=== PATIENT | male | born 1945 | race Caucasian/White ===

== ENCOUNTER 2023-07-28 09:37 | Inpatient (IN) ==
--- NOTE | 2023-07-28 09:42 | Emergency Department Note ---
Impression & Plan Acute exacerbation of CHF (congestive heart failure), Non-ST elevation AL (NSTEMI), Elevated brain natriuretic peptide (BNP) level, Bilateral edema of lower extremity ED Provider Note HISTORY OF PRESENT ILLNESS: Patient is a 77-year-old male presenting with lower extremity edema and shortness of breath. Patient reports he has a history of CHF and takes 40 mg of Lasix daily. He reports that in the last few weeks he has been having progressively worsening swelling of his lower extremities that now extends into his lower abdomen. He states that he is very short of breath both at rest and with exertion. He is unable to take more than 10-15 steps at a time before having to sit down because he is so winded. He denies any chest pain. He states that his scrotum is also very swollen and painful. Denies any fevers. Denies any abdominal pain. Patient reports he took his 40 mg of lasix today. ROS: as above PHYSICAL EXAM: Constitutional: Patient appears in no acute distress. HENT: Head: Normocephalic and atraumatic. Eyes: EOMI, PERRL Mouth/Throat: Mucous membranes moist. Neck: Trachea midline. Neck supple. Cardiovascular: Paced rhythm. No murmurs, rubs or gallops. Intact distal pulses. Pulmonary/Chest: No respiratory distress. Breath sounds clear and equal bilaterally. No wheezes or rales. Abdominal: Abdomen soft, no tenderness, rebound or guarding. Musculoskeletal: No tenderness or deformity noted. +3 pitting edema of bilateral lower extremities extending past knees Skin: Warm and dry. No rash, erythema, pallor or cyanosis Psychiatric: Appropriate mood and affect for situation. Neurological: Alert and keenly responsive. CN II-XII grossly intact, moving all extremities equally and fully. MDM: - Vitals signs showed borderline tachycardia - History obtained via patient. Patient presents with lower extremity edema and shortness of breath. Patient reports he takes 40 mg of Lasix daily. He reports over the last few weeks has been having progressively worsening swelling of his lower extremities that now extends into his abdomen. States he is very short of breath. He is unable to take more than 10-15 steps at a time before having to rest because he is so winded. Denies any chest pain. States his scrotum is swollen and very painful. Denies any fevers - Chronic conditions affecting care: HTN; HLD; CHF - Differential diagnoses include, but are not limited to: Congestive heart failure; acute coronary syndrome; COPD/asthma exacerbation; pulmonary edema; pulmonary embolism; pneumonia; pneumothorax; viral syndrome - Order placed for continuous cardiac monitoring. At this time, monitor showed rate of 83 bpm with paced rhythm, per my interpretation. - External medical records reviewed. - EKG interpreted by myself showed ventricular paced rhythm. Rate 97 bpm - Laboratory workup interpreted by myself showed leukopenia (WBC 3.32); thrombocytopenia (plt 99); stable electrolytes; elevated troponin (33.4); elevated BNP (349) - UA negative for infection - VBG shows hypercarbia (pCO2 58) - COVID negative - CXR showed left-sided pleural effusion, per my interpretation. - NSTEMI likely type II in nature secondary to CHF exacerbation. - Patient took his 40 mg PO lasix. Given an additional 40 mg IV. - Discussion was had with manager career about patient's case and need for admission - Hospitalist consulted for admission - Patient admitted to [facility] service for further evaluation and management. ASSESSMENT AND PLAN: Diagnosis: acute CHF exacerbation; NSTEMI; elevated BNP; bilateral lower extremity edema Plan: admit Past Med/Surg History Social History Smoking Status: Never smoker Preferred Language: Korean Feels Safe at Home: Yes Allergies Allergies Allergy/AdvReac Type Severity Reaction Status Date / Time Penicillins AdvReac Unknown Verified 07/28/23 10:46 Home Meds Home Medications Medication Instructions Recorded Confirmed aspirin 81 mg tablet 81 mg PO QAM 07/28/23 07/28/23 carvedilol 12.5 mg tablet 12.5 mg PO BID 07/28/23 07/28/23 furosemide 40 mg tablet 40 mg PO QAM 07/28/23 07/28/23 glucosamine sulfate 750 mg tablet 0 mg PO QAM 07/28/23 07/28/23 lisinopril 2.5 mg tablet 2.5 mg PO QAM 07/28/23 07/28/23 Results & Data (ED) Vital Signs Vital Signs - 24 hr 07/28/23 09:39 07/28/23 09:52 07/28/23 10:11 Temperature 36.6 C Temperature Source Temporal Artery Scan Pulse Rate 93 H Pulse Rate [Apical] 73 Pulse Rhythm [Apical] Regular Pulse Strength [Apical] Normal Respiratory Rate 20 Respiratory Effort / Characteristics SOB on Exertion Respiratory Depth Normal Blood Pressure 137/71 Blood Pressure [Right Arm] 149/101 H Blood Pressure Mean 93 Blood Pressure Mean [Right Arm] 117 Pulse Oximetry 96 96 Oxygen Delivery Method Room Air Room Air Sepsis Recent Fever Within 48 Hours No Sepsis New/Unexplained Change in Mental Status No Sepsis Action Taken by Nursing No Action Required 07/28/23 10:22 Temperature Temperature Source Pulse Rate 83 Pulse Rate [Apical] Pulse Rhythm [Apical] Pulse Strength [Apical] Respiratory Rate Respiratory Effort / Characteristics Respiratory Depth Blood Pressure Blood Pressure [Right Arm] Blood Pressure Mean Blood Pressure Mean [Right Arm] Pulse Oximetry Oxygen Delivery Method Sepsis Recent Fever Within 48 Hours Sepsis New/Unexplained Change in Mental Status Sepsis Action Taken by Nursing Laboratory Data 07/28/23 09:58 07/28/23 10:00 Lab Results 07/28/23 07/28/23 Range/Units 09:58 10:00 WBC 3.32 L (4.8-10.8) K/ul RBC 4.81 (4.70-6.10) M/uL Hgb 14.4 (14.0-18.0) g/dl Hct 43.2 (42.0-52.0) % MCV 89.8 (80.0-100.0) fL MCH 29.9 (25.0-34.0) pg MCHC 33.3 (32.0-36.0) g/dL RDW Std Deviation 55.2 H (36.4-46.3) fL RDW Coeff of Ervin 16.8 H (11.5-14.5) % Plt Count 99 L (130-400) K/uL MPV 11.9 (9.4-12.4) fL Immature Gran % (Auto) 0.3 % Neut % (Auto) 75.0 % Lymph % (Auto) 15.1 % [place] % (Auto) 7.5 % Eos % (Auto) 1.8 % Baso % (Auto) 0.3 % Neut # (Auto) 2.49 (1.40-6.50) K/uL Lymph # (Auto) 0.50 L (1.20-3.40) K/uL [place] # (Auto) 0.25 (0.11-0.59) K/uL Eos # (Auto) 0.06 (0.00-0.50) K/uL Baso # (Auto) 0.01 (0.00-0.20) K/uL Immature Gran # (Auto) 0.01 (0.01-0.20) K/uL Platelet Estimate Decreased L (Normal) PT 13.0 H (9.0-12.0) Seconds INR 1.2 H (0.9-1.1) VBG pH 7.37 (7.36-7.41) VBG pCO2 58 H (38-50) mmHg VBG pO2 < 20 mmHg VBG HCO3 34 mmol/L VBG O2 Saturation < 60.0 % VBG Base Excess 6.4 mEq/L Sodium 142 (136-145) mmol/L Potassium 3.9 (3.5-5.1) mmol/L Chloride 106 (98-107) mmol/L Carbon Dioxide 32 (21-32) mmol/L Anion Gap 4 (3-11) BUN 27 H (6-23) mg/dl Creatinine 1.27 (0.6-1.4) mg/dl Est Cr Clr Drug Dosing 51.9 ml/min Est GFR ( Amer) 61.9 ml/min Est GFR (Non-Af Amer) 53.4 ml/min BUN/Creatinine Ratio 21.3 H (10-20) Glucose 116 H (70-99(Fasting)) mg/dl Calcium 9.2 (8.6-10.3) mg/dl Magnesium 2.2 (1.7-2.4) mg/dl Total Bilirubin 2.1 H (0.2-1.0) mg/dl AST 23 (13-39) U/L ALT 15 (7-52) U/L Alkaline Phosphatase 186 H (34-104) U/L Troponin I High Sens 33.4 H (0-20) pg/ml B-Natriuretic Peptide 349 H (0-100) pg/ml Total Protein 6.7 (6.0-8.3) gm/dl Albumin 4.0 (3.4-5.0) gm/dl Globulin 2.7 (2.5-4.0) gm/dl Albumin/Globulin Ratio 1.5 (0.9-2) Urine Color Yellow Urine Appearance Clear (Clear) Urine pH 7.5 (4.5-7.5) Ur Specific [place] 1.009 (1.000-1.030) Urine Protein 2+ H (Negative) Urine Glucose (UA) Negative (Negative) Urine Ketones Negative (Negative) Urine Blood Trace H (Negative) Urine Nitrite Negative (Negative) Urine Bilirubin Negative (Negative) Urine Urobilinogen Negative (Negative) Ur Leukocyte Esterase Negative (Negative) Urine WBC (Auto) 1-5 (0-5) /hpf Urine RBC (Auto) 0-4 (0-4) /hpf U Hyaline Cast (Auto) 0 (0-5) /lpf U Epithel Cells (Auto) 10-20 H (0-5) /lpf Urine Bacteria (Auto) Negative (Negative) SARS-CoV-2 (PCR) NEGATIVE (Negative) Administered Medications Discontinued Medications Furosemide (Furosemide 40 Mg/4 Ml Vial) 40 mg IV ONE ONE Stop: 07/28/23 10:42 Last Admin: 07/28/23 10:46 Dose: 40 mg Documented By: [facility] Imaging Data Radiologist's Impression: Chest X-Ray 07/28/23 09:40 XR chest 1V portable HISTORY: Dyspnea COMPARISON: None. FINDINGS: No pneumothorax. There is a small right and moderate left pleural effusion. The heart is enlarged. The left-sided single lead pacemaker. No acute fractures identified. Degenerative changes within the shoulders. There is diffuse interstitial/vascular thickening consistent with mild pulmonary vascular congestion without overt edema. Left basilar densities are nonspecific but favor compressive atelectasis from the pleural effusion. Left paratracheal lobular density. IMPRESSION: 1. Cardiomegaly with mild pulmonary vascular congestion and bilateral pleural effusions. 2. Left basilar densities favor compressive atelectasis from the pleural effusion. A pneumonia could also have a similar appearance in the appropriate clinical setting. 3. Abnormal left paratracheal lobular density. This favors a substernal thyroid goiter. However, in the absence of prior studies, a follow-up nonemergent chest CT is recommended for further evaluation. ACT 112: Positive. There are findings on this exam that require communication between the performing entity and the patient following Patient Test Result Information Act ([place] Act 112) guidelines. Electronically signed by: Fernando Garcia M.D. 07/28/2023 10:41 AM Discharge Plan Visit Data Chief Complaint: Swelling/Edema to Extremity Stated Complaint: FLUID IN CHEST AND LEGS ED Provider: Kay Car Discharge Problem: Acute exacerbation of CHF (congestive heart failure), Non-ST elevation AL (NSTEMI), Elevated brain natriuretic peptide (BNP) level, Bilateral edema of lower extremity Forms Stand Alone Forms: My [facility] Prescriptions Prescriptions: No Action furosemide 40 mg tablet 40 mg PO QAM carvedilol 12.5 mg tablet 12.5 mg PO BID aspirin 81 mg Tablet 81 mg PO QAM lisinopril 2.5 mg Tablet 2.5 mg PO QAM glucosamine sulfate [Glucosamine] 750 mg Tablet 0 mg PO QAM Rx Instructions: Patient's spouse doesn't remember strength of medication at this time. Referrals Referrals: PCP,NO [Physician] -
[2023-07-28 10:15] LABS: Base Excess VBG 6.4 mEq/L; HCO3 VBG 34 mmol/L; Oxygen Saturation VBG < 60.0 %; PCO2 VBG 58 mmHg (38-50); PO2 VBG < 20 mmHg; pH VBG 7.37 (7.36-7.41)
[2023-07-28 10:20] LABS: Appearance Urine Clear (Clear); Bacteria Urine Automated Negative (Negative); Bilirubin Urine Negative (Negative); Blood Urine Trace (Negative); Cast Urine Automated 0 /lpf (0-5); Color Urine Yellow; Glucose Urine UA Negative (Negative); Ketones Urine Negative (Negative); Leukocyte Esterase Urine Negative (Negative); Nitrite Urine Negative (Negative); RBC Urine Automated 0-4 /hpf (0-4); Specific Gravity Urine 1.009 (1.000-1.030); Urobilinogen Urine Negative (Negative); pH Urine 7.5 (4.5-7.5)
[2023-07-28 10:28] LABS: Protein Urine 2+ (Negative)
[2023-07-28 10:37] LABS: Albumin Globulin Ratio 1.5 (0.9-2); BUN Creatinine Ratio 21.3 (10-20); Bilirubin,Total 2.1 mg/dl (0.2-1.0); Calcium 9.2 mg/dl (8.6-10.3); Creatinine Clr Calc Pharmacy 51.9 ml/min; Est GFR (African American) 61.9 ml/min; Est GFR (Non-African American) 53.4 ml/min; Globulin 2.7 gm/dl (2.5-4.0); Magnesium 2.2 mg/dl (1.7-2.4); Potassium 3.9 mmol/L (3.5-5.1); Total Protein 6.7 gm/dl (6.0-8.3)
[2023-07-28] MEDS ORDERED: FUROSEMIDE 40 MG/4 ML VIAL IV ONE (10:41)
--- NOTE | 2023-07-28 10:43 | XRay Report ---
XR chest 1V portable HISTORY: Dyspnea COMPARISON: None. FINDINGS: No pneumothorax. There is a small right and moderate left pleural effusion. The heart is en larged. The left-sided single lead pacemaker. No acute fractures identified. Degenerative changes wit hin the shoulders. There is diffuse interstitial/vascular thickening consistent with mild pulmonary v ascular congestion without overt edema. Left basilar densities are nonspecific but favor compressive atelectasis from the pleural effusion. Left paratracheal lobular density. IMPRESSION: 1. Cardiomegaly with mild pulmonary vascular congestion and bilateral pleural effusions. 2. Left basilar densities favor compressive atelectasis from the pleural effusion. A pneumonia could also have a similar appearance in the appropriate clinical setting. 3. Abnormal left paratracheal lobular density. This favors a substernal thyroid goiter. However, in t he absence of prior studies, a follow-up nonemergent chest CT is recommended for further evaluation. ACT 112: Positive. There are findings on this exam that require communication between the performing entity and the patient following Patient Test Result Information Act ([place] Act 112) guidelines. Electronically signed by: Fernando Garcia M.D. 07/28/2023 10:41 AM
[2023-07-28 10:44] LABS: Troponin I High Sensitivity 33.4 pg/ml (0-20)
[2023-07-28 11:01] LABS: INR 1.2 (0.9-1.1)
[2023-07-28 11:12] LABS: Basophils # (auto) 0.01 K/uL (0.00-0.20); Basophils % (auto) 0.3 %; Eosinophils # (auto) 0.06 K/uL (0.00-0.50); Eosinophils % (auto) 1.8 %; Hematocrit (blood only) 43.2 % (42.0-52.0); Hemoglobin 14.4 g/dl (14.0-18.0); Immature Granulocytes # (auto) 0.01 K/uL (0.01-0.20); Immature Granulocytes % (auto) 0.3 %; Lymphocytes % (auto) 15.1 %; Mean Corpuscular Hemoglobin 29.9 pg (25.0-34.0); Mean Corpuscular Hgb Conc 33.3 g/dL (32.0-36.0); Mean Corpuscular Volume 89.8 fL (80.0-100.0); Mean Platelet Volume 11.9 fL (9.4-12.4); Monocytes # (auto) 0.25 K/uL (0.11-0.59); Monocytes % (auto) 7.5 %; Neutrophils # (auto) 2.49 K/uL (1.40-6.50); Platelet Count 99 K/uL (130-400); Platelet Estimate Decreased (Normal); RDW Coefficient of Variation 16.8 % (11.5-14.5); RDW Standard Deviation 55.2 fL (36.4-46.3); Red Blood Count 4.81 M/uL (4.70-6.10); White Blood Count 3.32 K/ul (4.8-10.8)
--- NOTE | 2023-07-28 11:52 | History & Physical Report ---
Date of Service July 28, 2023 History of Present Illness Chief Complaint: Swelling, SOB/SMITH Primary Care Provider: Jb Romero DO Hugo is a 77 year old male with a PMH significant for CAD, HTN, CHF who presented to the [facility] ED on 07/28/22 with complaints of swelling, SOB, and SMITH. He remained stable in the ED. Labs were significant for a leukopenia of 3.32, platelet count of 99, lymphocyte count of 0.50, INR2 of 1.2, BUN of 27, total bili of 2.1, alk phos of 186, initial high sen trop of 33 with BNP of 349 (No previous value in our system), UA with 2+ protein, trace blood, 10-20 epithelial cells, and covid 19 negative. Chest xray was read as "1. Cardiomegaly with mild pulmonary vascular congestion and bilateral pleural effusions. 2. Left basilar densities favor compressive atelectasis from the pleural effusion. A pneumonia could also have a similar appearance in the appropriate clinical setting. 3. Abnormal left paratracheal lobular density. This favors a substernal thyroid goiter. However, in the absence of prior studies, a follow-up nonemergent chest CT is recommended for further evaluation.". Prior to admission the patient was given 40 mg IV lasix. Allergies Allergy/AdvReac Type Severity Reaction Status Date / Time Penicillins AdvReac Unknown Verified 07/28/23 10:46 Home Medications Medication Instructions Recorded Confirmed Type aspirin 81 mg tablet 81 mg PO QAM 07/28/23 07/28/23 History carvedilol 12.5 mg tablet 12.5 mg PO BID 07/28/23 07/28/23 History furosemide 40 mg tablet 40 mg PO QAM 07/28/23 07/28/23 History glucosamine sulfate 750 mg tablet 0 mg PO QAM 07/28/23 07/28/23 History lisinopril 2.5 mg tablet 2.5 mg PO QAM 07/28/23 07/28/23 History Past Med/Surg History Social History Smoking Status: Never smoker Preferred Language: Tajik Feels Safe at Home: Yes Results & Data Results & Data Vital Signs (Past 12 Hours) Vital Signs Temp Pulse Pulse Resp BP BP Pulse Ox 07/28/23 10:22 83 07/28/23 10:11 73 20 149/101 H 96 07/28/23 09:52 96 07/28/23 09:39 36.6 C 93 H 137/71 O2 Del Method 07/28/23 10:22 07/28/23 10:11 Room Air 07/28/23 09:52 Room Air 07/28/23 09:39 PG Care Time/CCT Total # of Minutes Spent Total Time Spent with Patient: Total time spent is greater than 50% in coordination of care (as documented) at patient's floor/unit and/or counseling patient: Coding
--- NOTE | 2023-07-28 12:30 | History & Physical Report ---
Date of Service July 28, 2023 Assessment & Plan (1) Acute exacerbation of CHF (congestive heart failure): (2) Pacemaker: (3) Elevated brain natriuretic peptide (BNP) level: (4) Bilateral edema of lower extremity: Plan: - Admit to tele - CXR reviewed showing pulmonary vascular congestion, increased lower extremity edema despite diuretic use Lasix 40 mg daily, weight gain from dry weight of 172 lbs -->203 lbs - Troponin has been stable at ~30 x 2 sets, no chest pain - Interrogate pacemaker - EKG reviewed as above - Check 2 D echo, no previous available for review - Continue diuresis with 40 mg IV twice daily starting tomorrow morning, strict I's and O's, fluid restriction - corral cath ordered and discussed with nursing to place in ER - Consult cardiology with significant volume overload and pt is looking to transition care to [facility] - will ask HIM to obtain records from [place] [facility] - PT/OT consulted - Diet and exercise to be discussed throughout hospital stay - sounds to be eating small amounts and still gaining weight, he is very active - Hx of inguinal hernia repair x 3 separate surgeries, twice with mesh insertion - has copy of CT imaging with her at bedside - can ask for this to be uploaded into the system for possible general surgery review if warranted DVT ppx: scds, heparin subq Lines: 2 PIV FEN/GI: HH diet, fluid restriction CODE: FULL Dispo: From home, likely to remain in the hospital x 1-2 days History of Present Illness Chief Complaint: Shortness of breath, increased lower extremity edema Primary Care Provider: Jb Romero, This is a 77-year-old male with PMHx of CHF, s/p pacemaker insertion 10 years ago, Watchman device insertion May 2022, and HTN who presents to the hospital with complaints of progressive edema in BLE, as well as increased shortness of breath in the past month. He reports previously weight 172 lbs about 3 months ago, and now is right over 200 lbs. He has been compliant with lasix 40 mg daily along with other medications. He states that his legs are significantly swollen up past his knees. He also notes scrotal swelling, and mentions inguinal hernia repair x 3, twice with mesh insertion, and his last surgery was about 2 years ago. He feels intestine again is into the scrotal region, nonpainful, and states he can push it up into abdomen but then falls back down into scrotal sack again. His who is present at bedside supports the history and notes that he seems significantly bloated in his abdomen as well. notes he is eating small amounts at meals and just isn't very hungry. He is unable to take even 10 steps without becoming significantly winded. Denies any chest pain, heaviness, tightness or palpitations. Denies any recent sick contacts. He has previously followed with Dr. Newsome from [facility] in [place], last seen in his clinic about 1 year ago and has a follow-up appointment in the beginning of August this year. He however is looking to switch over to [facility] cardiology as they had a family member who works in the office and is referring him. Patient is a very active person, works in a [employer] with [employer], states that he "retired a few years ago", but still has some jobs that he would like to complete. Denies any smoking history, alcohol use or illicit drug use. Allergies Allergy/AdvReac Type Severity Reaction Status Date / Time Penicillins AdvReac Unknown Verified 07/28/23 10:46 Home Medications Medication Instructions Recorded Confirmed Type aspirin 81 mg tablet 81 mg PO QAM 07/28/23 07/28/23 History carvedilol 12.5 mg tablet 12.5 mg PO BID 07/28/23 07/28/23 History furosemide 40 mg tablet 40 mg PO QAM 07/28/23 07/28/23 History glucosamine sulfate 750 mg tablet 0 mg PO QAM 07/28/23 07/28/23 History lisinopril 2.5 mg tablet 2.5 mg PO QAM 07/28/23 07/28/23 History Past Med/Surg History Medical History (Updated 07/28/23 @ 18:19 by Kanika Bañuelos DO) Chronic atrial fibrillation HTN (hypertension) CHF (congestive heart failure) Surgical History S/P cardiac pacemaker procedure History of left atrial appendage closure Family History Father Heart disease Sister Heart disease Social History Smoking Status: Never smoker Hx Alcohol Use: No Hx Substance Use: No Preferred Language: Georgian Feels Safe at Home: Yes Review of Systems Review of Systems: Constitutional: No fever, sweats or chills Eyes: No diplopia, no worsening or blurred vision ENT: normal hearing, no trouble swallowing Respiratory: No cough, sputum, + SMITH with minimal ADLs, no dyspnea at rest Cardiovascular: No chest pain, tightness or palpitations Abdomen: + bloating, No pain, nausea, vomiting, diarrhea or constipation Musculoskeletal: No joint pain, calf pain, + significant swelling lower ext Neurologic: No weakness, numbness/tingling, or balance problems Psychiatric: No anxiety or depression Skin: No rash or itch Physical Exam Physical Exam: General: awake, alert, no apparent distress, elderly white male Head: Normocephalic, atraumatic ENT: PERRL, EOMI, no pharyngeal exudate, mucous membranes moist, + slightly hard of hearing Chest: Diminished breath sounds in left base, otherwise clear throughout on room air Cardiac: Regular rate and rhythm, no murmur, no JVD, normal peripheral pulses, good capillary refill Abdominal: NABS x 4 quadrants, soft, + edema over abdominal sides/hip region, + slightly distended, nontender to palpation, no rebound or guarding Extremities: 3+ significant peripheral edema up to hips, no erythema, calfs nontender to palpation Psych: Normal mood and affect Neuro: AAO x 3, strength intact bilaterally and rated 5/5, no motor deficits, speech is clear, no peripheral sensory deficits Results & Data Results & Data Vital Signs (Past 12 Hours) Vital Signs Temp Pulse Pulse Resp BP BP Pulse Ox 07/28/23 12:00 37.0 C 71 20 138/97 95 07/28/23 10:22 83 07/28/23 10:11 73 20 149/101 H 96 07/28/23 09:52 96 07/28/23 09:39 36.6 C 93 H 137/71 O2 Del Method 07/28/23 12:00 Room Air 07/28/23 10:22 07/28/23 10:11 Room Air 07/28/23 09:52 Room Air 07/28/23 09:39 Laboratory Results 07/28/23 07/28/23 10:00 09:58 WBC 3.32 L RBC 4.81 Hgb 14.4 Hct 43.2 MCV 89.8 MCH 29.9 MCHC 33.3 RDW Std Deviation 55.2 H RDW Coeff of Ervin 16.8 H Plt Count 99 L MPV 11.9 Immature Gran % (Auto) 0.3 Neut % (Auto) 75.0 Lymph % (Auto) 15.1 [place] % (Auto) 7.5 Eos % (Auto) 1.8 Baso % (Auto) 0.3 Neut # (Auto) 2.49 Lymph # (Auto) 0.50 L [place] # (Auto) 0.25 Eos # (Auto) 0.06 Baso # (Auto) 0.01 Immature Gran # (Auto) 0.01 Platelet Estimate Decreased L PT 13.0 H INR 1.2 H VBG pH 7.37 VBG pCO2 58 H VBG pO2 < 20 VBG HCO3 34 VBG O2 Saturation < 60.0 VBG Base Excess 6.4 Sodium 142 Potassium 3.9 Chloride 106 Carbon Dioxide 32 Anion Gap 4 BUN 27 H Creatinine 1.27 Est Cr Clr Drug Dosing 51.9 Est GFR ( Amer) 61.9 Est GFR (Non-Af Amer) 53.4 BUN/Creatinine Ratio 21.3 H Glucose 116 H Calcium 9.2 Magnesium 2.2 Total Bilirubin 2.1 H AST 23 ALT 15 Alkaline Phosphatase 186 H Troponin I High Sens 33.4 H B-Natriuretic Peptide 349 H Total Protein 6.7 Albumin 4.0 Globulin 2.7 Albumin/Globulin Ratio 1.5 Urine Color Yellow Urine Appearance Clear Urine pH 7.5 Ur Specific [place] 1.009 Urine Protein 2+ H Urine Glucose (UA) Negative Urine Ketones Negative Urine Blood Trace H Urine Nitrite Negative Urine Bilirubin Negative Urine Urobilinogen Negative Ur Leukocyte Esterase Negative Urine WBC (Auto) 1-5 Urine RBC (Auto) 0-4 U Hyaline Cast (Auto) 0 U Epithel Cells (Auto) 10-20 H Urine Bacteria (Auto) Negative SARS-CoV-2 (PCR) NEGATIVE Diagnostic Findings Chest X-Ray 07/28/23 09:40 XR chest 1V portable HISTORY: Dyspnea COMPARISON: None. FINDINGS: No pneumothorax. There is a small right and moderate left pleural effusion. The heart is enlarged. The left-sided single lead pacemaker. No acute fractures identified. Degenerative changes within the shoulders. There is diffuse interstitial/vascular thickening consistent with mild pulmonary vascular congestion without overt edema. Left basilar densities are nonspecific but favor compressive atelectasis from the pleural effusion. Left paratracheal lobular density. IMPRESSION: 1. Cardiomegaly with mild pulmonary vascular congestion and bilateral pleural effusions. 2. Left basilar densities favor compressive atelectasis from the pleural effusion. A pneumonia could also have a similar appearance in the appropriate clinical setting. 3. Abnormal left paratracheal lobular density. This favors a substernal thyroid goiter. However, in the absence of prior studies, a follow-up nonemergent chest CT is recommended for further evaluation. ACT 112: Positive. There are findings on this exam that require communication between the performing entity and the patient following Patient Test Result Information Act ([place] Act 112) guidelines. Electronically signed by: Fernando Garcia M.D. 07/28/2023 10:41 AM ECG Additional Comments: 28-JUL-2023 09:47:02 [facility]-EDSTAT ROUTINE RETRIEVAL Ventricular-paced rhythm with occasional Premature ventricular complexes Abnormal ECG No previous ECGs available 25mm/[id number]: [id number] by: REFERRED SELF Unconfirmed Vent. rate 97 BPM OR interval * ms QRS duration 188 ms QT/QTc 430/546 ms Code Status & VTE Plan Code Status Full code - discussed w pt and at bedside VTE Prophylaxis Plan VTE Prophylaxis will be ordered: Yes Supervising Physician Co-Signing Physician Notes I have seen and examined the patient and have discussed the case with the provider above. I agree with the assessment and plan as stated. 77-year-old man with history of CHF followed by [place] [facility] with history as noted above presented with progressive shortness of breath with exertion for the past 4 weeks. He also has pitting edema in bilateral lower extremities and in his abdomen and flanks. He denies any chest pain, urinary symptoms, GI symptoms, and no respiratory symptoms. He was administered 40 mg of intravenous Lasix in the ER with approximately 2 L output in response. As a result his shortness of breath was significantly improved. was at bedside and assist with history. On exam he is hemodynamically stable and afebrile oxygenating well on room air. He is in no acute distress and has no conversational dyspnea. Lungs are clear to auscultation throughout. Cardiac exam reveals S1-S2 heard with regular rate and rhythm with no murmurs gallops or rubs. He has 2+ pitting edema bilateral lower extremities and in the flanks bilaterally. JVD is present. He is able to sit up independently. He has generalized weakness but no gross focal deficits. Abdomen is soft nontender nondistended. Corral catheter is in place draining a yellow clear urine. Labs and imaging reviewed. Mildly elevated troponin at 33.4 with a repeat of 31.4. This is likely secondary to demand ischemia in the setting of acute heart failure and less likely ACS with lack of chest pain and EKG revealing no acute ischemia. V-paced rhythm is present consistent with history of pacemaker in place. BNP mildly elevated 349. Chest x-ray reveals left greater than right sided pleural effusion with mild pulmonary vascular congestion. 1. Acute heart failure with preserved ejection fraction 2. Leukopenia 3. Thrombocytopenia 4. Chronic atrial fibrillation status post Watchman closure device 5. Pacemaker in place Clinical picture is consistent with acute heart failure. At the point of this dictation echocardiogram was read with preserved ejection fraction. Continue with intravenous Lasix with electrolyte replacement as needed. Continue monitoring on telemetry. Cardiology was consulted. Battery longevity is being addressed by cardiology team after pacemaker interrogation. Not on anticoagulation status post Watchman procedure for chronic A-fib. Records were requested and would check trend of historical white blood cell count and platelet count with additional workup as needed if this is a new change. DO Sarmad
--- NOTE | 2023-07-28 13:52 | Electrocardiogram Report ---
Test Reason : Blood Pressure : / mmHG Vent. Rate : 097 BPM Atrial Rate : 096 BPM P-R Int : 000 ms QRS Dur : 188 ms QT Int : 430 ms P-R-T Axes : 000 -79 099 degrees QTc Int : 546 ms Ventricular-paced rhythm with occasional Premature ventricular complexes Abnormal ECG No previous ECGs available Confirmed by Paramjit Altman ([id number]) on 07/28/2023 1:52:19 PM Referred By: REFERRED SELF Confirmed By:Paramjit Altman
[2023-07-28] MEDS ORDERED: ACETAMINOPHEN 325 MG TAB PO PRN (15:49)
--- NOTE | 2023-07-28 16:04 | Cardiology Consultation ---
Date of Consultation July 28, 2023 Assessment & Plan (1) Acute exacerbation of CHF (congestive heart failure): (2) Bilateral edema of lower extremity: (3) HTN (hypertension): (4) Pacemaker: (5) Chronic atrial fibrillation: (6) Presence of Watchman left atrial appendage closure device: Plan Patient admitted with signs/symptoms of CHF exacerbation (systolic vs diastolic) with SOB, b/l pleural effusions, abdominal bloating, edema. HS troponin minimally elevated and consistent with CHF, not ACS. EKG with underlying afib, chronic V pacing. Echocardiogram is pending. Continue furosemide 40 mg IV BID. Monitor I+O's Supplement potassium if needed. Consider adding spironolactone. Daily weight with standing scale Pacemaker interrogation demonstrates high LV lead threshold. [employer] rep aware and will come adjust LV lead outputs Otherwise he has about 8 months (or less) of battery longevity. Will need to establish with our device clinic. Hypertension - Continue home dose carvedilol, lisinopril and continue IV diuretics Underlying atrial fibrillation, controlled rates. Continue carvedilol. He is s/p Watchman and no longer in need of anticoagulation therapy Continue ASA 81 mg daily Records have been requested from [facility]. Case discussed with Dr. Watson I spent a total of 40 minutes on the date of service in preparation, delivery, and documentation of the care provided to this patient, excluding any time spent in the performance of separately billed services. Shasha Braxton PA-C Department of Cardiology, [facility] This chart was completed in part utilizing Speech Voice Recognition Software. Grammatical errors, random word insertions, pronoun errors, and incomplete sentences are an occasional consequence of this system due to software limitations, ambient noise, and hardware issues. Any formal questions or concerns about the content, text, or information contained within the body of this dictation should be directly addressed to the provider for clarification. Supervising Physician Co-Signing Physician Notes Attending attestation: I have reviewed the advanced practitioner's documentation and agree with the plan of care. I accept the responsibility for the associated risk of managing the patient. Subjective: Patient notes recent waxing waning lower extremity edema, progressive abdominal bloating. As noted, was found to have bilateral pleural effusions. Exam: Cardiovascular: Irregular rhythm, no murmurs 2+ lower extremity edema Chest: Left infraclavicular pacemaker pocket clean dry and intact, no drainage or erythema Data: EKG performed 07/28/2023 at 9:47 AM and interpreted independently: Ventricular paced rhythm at 97 bpm Device interrogation as noted above Impression/ Plan: Acute on chronic heart failure, previous measurement of ejection fraction unavailable at present. Permanent atrial fibrillation Single-chamber permanent pacemaker -Per review of patient's pacemaker interrogation, the pacing threshold for his right ventricular lead has been trending toward increased, will likely increase the output of the pacemaker to increase safety margin. -His generator longevity is estimated at 8 months, not unexpected as the device was initially placed 10 years ago in 2013. Anticipate need for generator longevity sooner than 8 months if we can increase the output of his device. -Patient not on anticoagulation, having had a percutaneous left atrial appendage occlusion procedure. -Continue aspirin, carvedilol, lisinopril, IV furosemide 40 mg IV twice daily. Agree with subcutaneous heparin for DVT prophylaxis. I spent a total of 20 minutes coordinating, documenting, and providing care for this patient excluding time spent in the performance of separately billed services or time spent by another provider. Marcelo Watson, DO History of Present Illness Reason for Consultation: CHF Requesting Physician: Ms. Gisell Lawler PA-C Attending Physician: Dr. Watson History of Present Illness Patient is a 77 year old male who presented to [facility] with complaints of worsening SOB, abdominal bloating and Lower extremity edema x3-4 weeks. He formerly followed with Dr. Newsome in [place]. His nephew is a nurse at [facility] cardiology and he wishes to transfer care. Records are limited and have been requested. Patient is listed as Marcelo Edmondson in [place] and patient reports he prefers the name "Manish". History includes: 1. Chronic atrial fibrillation s/p Watchman in about 2021. No longer on anticoagulation therapy 2. History of "heart failure", unsure of details 3. Hypertension 4. Patient reports history of cardiac cath about 2 years ago with 2 vessels having about 50% blockage. No stents performed. Medical management recommended 5. History of single lead pacemaker implanted in 2013 for atrial fibrillation. Patient reports his SOB began around [place]. He does not weigh himself daily. He reported worsening abdominal bloating and lower extremity edema. He admits to compliance with diuretic therapy. No chest pain reported. No dizziness or lightheadedness. No palpitations. No recent falls. Upon arrival to ER, patient found to have b/l pleural effusions on chest xray, consistent with CHF exacerbation. BNP minimally elevated. HS troponin minimall elevated and flat. No acute symptoms to suggest ACS. Echocardiogram is pending. he was started on IV furosemide. At time of consult, patient reports frequent urination and already feeling somewhat better. Able to take "a deep breath". Feels his abdomen is softer and not as distended. He is hoarse with mild cough. no fever or chills. COVID negative. Allergies Allergy/AdvReac Type Severity Reaction Status Date / Time Penicillins AdvReac Unknown Verified 07/28/23 10:46 Home Medications Medication Instructions Recorded Confirmed Type aspirin 81 mg tablet 81 mg PO QAM 07/28/23 07/28/23 History carvedilol 12.5 mg tablet 12.5 mg PO BID 07/28/23 07/28/23 History furosemide 40 mg tablet 40 mg PO QAM 07/28/23 07/28/23 History glucosamine sulfate 750 mg tablet 0 mg PO QAM 07/28/23 07/28/23 History lisinopril 2.5 mg tablet 2.5 mg PO QAM 07/28/23 07/28/23 History Patient History Medical History (Updated 07/28/23 @ 16:25 by Shasha Braxton PA-C) HTN (hypertension) CHF (congestive heart failure) Surgical History (Updated 07/28/23 @ 13:13 by Jazz Lawler PA-C) S/P cardiac pacemaker procedure History of left atrial appendage closure Family History (Updated 07/28/23 @ 13:14 by Jazz Lawler PA-C) Father Heart disease Sister Heart disease Social History (Updated 07/28/23 @ 13:14 by Jazz Lawler PA-C) Smoking Status: Never smoker Hx Alcohol Use: No Hx Substance Use: No Preferred Language: Turkmen Feels Safe at Home: Yes Review of Systems Review of Systems: All systems reviewed & are unremarkable except as noted in HPI & below Physical Exam Constitutional: WD/WN, vitals as above well developed; no acute distress Neck: trachea midline, no thyromegaly Respiratory: no respiratory distress and no labored breathing Auscultation: + diminished lung sounds (bases b/l ) and + crackles (faint bibasilar rales) Cardiovascular: Rate/Rhythm: + irregularly irregular Heart Sounds: no murmur Vessels: + JVD (in the upright position) Extremities: + edema (2+ LE edema to thighs) Gastrointestinal (Abdomen): Inspection/Auscultation: + abdomen distended Percussion/Palpation: + abdomen firm; abdomen nontender Neurologic: PERRL, EOMI, accommodation nl, no face palsy, no dysarthria Psychiatric: A+Ox3, euthymic affect Results & Data Vital Signs (Past 12 Hours) Vital Signs Temp Pulse Pulse Resp BP BP Pulse Ox 07/28/23 15:45 37.3 C 78 20 141/89 H 97 07/28/23 15:00 71 24 96 07/28/23 15:00 142/89 H 07/28/23 14:39 74 07/28/23 14:30 76 24 96 07/28/23 14:00 71 26 H 95 07/28/23 14:00 141/91 H 07/28/23 13:59 73 24 98 07/28/23 13:30 82 20 95 07/28/23 13:20 70 21 157/98 H 97 07/28/23 12:00 37.0 C 71 20 138/97 95 07/28/23 10:22 83 07/28/23 10:11 73 20 149/101 H 96 07/28/23 09:52 96 07/28/23 09:39 36.6 C 93 H 137/71 O2 Del Method 07/28/23 15:45 Room Air 07/28/23 15:00 Room Air 07/28/23 15:00 07/28/23 14:39 07/28/23 14:30 07/28/23 14:00 07/28/23 14:00 07/28/23 13:59 Room Air 07/28/23 13:30 Room Air 07/28/23 13:20 Room Air 07/28/23 12:00 Room Air 07/28/23 10:22 07/28/23 10:11 Room Air 07/28/23 09:52 Room Air 07/28/23 09:39 Laboratory Results Cardiac Enzymes 07/28/23 07/28/23 07/28/23 Range/Units 09:58 10:00 11:46 AST 23 (13-39) U/L Troponin I High Sens 33.4 H 31.4 H (0-20) pg/ml B-Natriuretic Peptide 349 H (0-100) pg/ml Coagulation 07/28/23 Range/Units 09:58 PT 13.0 H (9.0-12.0) Seconds B-Natriuretic Peptide 349 H (0-100) pg/ml CBC 07/28/23 Range/Units 09:58 WBC 3.32 L (4.8-10.8) K/ul RBC 4.81 (4.70-6.10) M/uL Hgb 14.4 (14.0-18.0) g/dl Hct 43.2 (42.0-52.0) % Plt Count 99 L (130-400) K/uL Neut # (Auto) 2.49 (1.40-6.50) K/uL Lymph # (Auto) 0.50 L (1.20-3.40) K/uL [place] # (Auto) 0.25 (0.11-0.59) K/uL Eos # (Auto) 0.06 (0.00-0.50) K/uL Baso # (Auto) 0.01 (0.00-0.20) K/uL Comprehensive Metabolic Panel 07/28/23 Range/Units 10:00 Sodium 142 (136-145) mmol/L Potassium 3.9 (3.5-5.1) mmol/L Chloride 106 (98-107) mmol/L Carbon Dioxide 32 (21-32) mmol/L BUN 27 H (6-23) mg/dl Creatinine 1.27 (0.6-1.4) mg/dl Glucose 116 H (70-99(Fasting)) mg/dl Calcium 9.2 (8.6-10.3) mg/dl AST 23 (13-39) U/L ALT 15 (7-52) U/L Alkaline Phosphatase 186 H (34-104) U/L Total Protein 6.7 (6.0-8.3) gm/dl Albumin 4.0 (3.4-5.0) gm/dl Intake and Output 07/28/23 07/28/23 07/28/23 06:59 14:59 22:59 Output Total 1149 1949 Balance -115 / -1950 - Output: Urine 1150 / 1150 Urine Amount (Catheter) 800 / 800 Corral/Indwelling 800 / 800 Other: Weight 95.3 kg Patient Weight 07/29/23 06:59 Weight 95.3 kg Diagnostic Findings Telemetry reviewed: Underlying afib, with chronic ventricular pacing EKG reviewed: Underlying atrial fib with ventricular pacing and PVC Device interrogation reviewed personally and by [employer] rep: 8 months battery longevity High LV lead threshold - Settings to be adjusted to improve capture. 54% ventricular paced. Echocardiogram pending Chest xray reviewed on admission: IMPRESSION: 1. Cardiomegaly with mild pulmonary vascular congestion and bilateral pleural effusions. 2. Left basilar densities favor compressive atelectasis from the pleural effusion. A pneumonia could also have a similar appearance in the appropriate clinical setting. 3. Abnormal left paratracheal lobular density. This favors a substernal thyroid goiter. However, in the absence of prior studies, a follow-up nonemergent chest CT is recommended for further evaluation. (1) Acute exacerbation of CHF (congestive heart failure) Heart failure type: unspecified Qualified Code(s): I50.9 - Heart failure, unspecified (3) HTN (hypertension) Hypertension type: primary hypertension Qualified Code(s): I10 - Essential (primary) hypertension
[2023-07-28] MEDS: carvediloL 12.5 MG TAB PO SCH (17:05)
[2023-07-28] MEDS ORDERED: FUROSEMIDE INJ 20 MG/2 ML VIAL IV STA (18:16)
[2023-07-28] MEDS: HEPARIN SOD 5,000 UNIT/0.5 ML VIAL SQ SCH (20:21)
[2023-07-29 06:14] LABS: BUN Creatinine Ratio 21.6 (10-20); Chol HDL Ratio 2.9 (0-5); Creatinine Clr Calc Pharmacy 52.7 ml/min; Est GFR (African American) 63.1 ml/min; Est GFR (Non-African American) 54.4 ml/min; Magnesium 2.1 mg/dl (1.7-2.4); Potassium 3.8 mmol/L (3.5-5.1)
[2023-07-29 06:21] LABS: Hemoglobin 13.7 g/dl (14.0-18.0); Mean Corpuscular Hemoglobin 29.8 pg (25.0-34.0); Mean Corpuscular Hgb Conc 34.3 g/dL (32.0-36.0); Mean Corpuscular Volume 87.1 fL (80.0-100.0); Mean Platelet Volume 11.7 fL (9.4-12.4); Platelet Count 96 K/uL (130-400); RDW Coefficient of Variation 16.7 % (11.5-14.5); RDW Standard Deviation 53.6 fL (36.4-46.3); Red Blood Count 4.59 M/uL (4.70-6.10); White Blood Count 4.52 K/ul (4.8-10.8)
[2023-07-29 07:06] LABS: Estimated Average Glucose 131 mg/dl; Hemoglobin A1C 6.2 % (4.5-5.6)
--- NOTE | 2023-07-29 07:22 | Cardiology Progress Note ---
Date of Service July 29, 2023 Assessment & Plan (1) Acute exacerbation of CHF (congestive heart failure): (2) Bilateral edema of lower extremity: (3) HTN (hypertension): (4) Pacemaker: (5) Chronic atrial fibrillation: (6) Presence of Watchman left atrial appendage closure device: Plan Impression: Patient admitted with signs/symptoms of diastolic CHF exacerbation with SOB, b/l pleural effusions, abdominal bloating, edema. HS troponin minimally elevated and consistent with CHF, not ACS. EKG with underlying afib, chronic V pacing. Echocardiogram with a preserved LV systolic function, no wall motion abnormalities, and mildly elevated pulmonary pressures. Moderate to large pleural effusion noted Plan: Acute on chronic diastolic CHF: Renal function stable. Continue furosemide 40 mg IV BID. Large left pleural effusion seen on echocardiogram Monitor I+O's, +Corral cath in place, hematuria noted (possibly due to trauma with Corral insertion)--will defer to primary team, patient not on AC only low dose ASA. 2 g dietary sodium restriction Supplement potassium if needed. Consider adding spironolactone-- will hold off at this time due to borderline hypotension this am Daily weight with standing scale CHF education Single-chamber permanent pacemaker: Pacemaker interrogation demonstrates high LV lead threshold. [employer] rep aware and will come adjust LV lead outputs Otherwise he has about 8 months (or less) of battery longevity. Will need to establish with our device clinic. Hypertension: Continue home dose carvedilol, lisinopril and continue IV diuretics Permanent atrial fibrillation: Controlled rates--Continue carvedilol. He is s/p Watchman and no longer in need of anticoagulation therapy Continue ASA 81 mg daily Records have been requested from [facility]. Case discussed with Dr. Watson I spent a total of 30 minutes on the date of service in preparation, delivery, and documentation of the care provided to the patient excluding any time spent in the performance of separately billed services. ESTHER Landis Department of Cardiology, [facility] This chart was completed in part utilizing Speech Voice Recognition Software. Grammatical errors, random word insertions, pronoun errors, and incomplete sentences are an occasional consequence of this system due to software limitations, ambient noise, and hardware issues. Any formal questions or concerns about the content, text, or information contained within the body of this dictation should be directly addressed to the provider for clarification. Admission and Anticipated Discharge Date Admission Date: July 28, 2023 Supervising Physician Co-Signing Physician Notes Attending attestation: I have reviewed the advanced practitioner's documentation and agree with the plan of care. I accept the responsibility for the associated risk of managing the patient. Subjective: Patient without acute complaint. Catheter had been placed on 07/28/2023 with initial clear yellow urine output, but has now turned blood- tinged. Exam: Pulmonary: Decreased breath sounds at the left base Cardiovascular: Irregular rhythm, 1/6 systolic murmur, 2+ lower extremity edema Chest: Pacemaker pocket clean dry and intact with no erythema : Corral catheter in place with blood-tinged urine Data: Sodium 142, potassium 3.8, creatinine 1.25, glucose 92 Impression/ Plan: Problem list as outlined above -Continue IV furosemide 40 mg IV twice daily -Carvedilol 12.5 mg twice daily, lisinopril 2.5 mg daily, aspirin 81 mg daily, supplement potassium. -Plan for ultrasound-guided thoracentesis of the left pleural effusion with interventional radiology this afternoon. I spent a total of 25 minutes coordinating, documenting, and providing care for this patient excluding time spent in the performance of separately billed services or time spent by another provider. Marcelo Watson, DO Subjective 77-year-old male who presented to [facility] emergency department yesterday, 07/28/2023 due to signs/symptoms of diastolic CHF exacerbation with SOB, b/l pleural effusions, abdominal bloating, edema. High-sensitivity troponin minimally elevated and consistent with CHF, not ACS. EKG with underlying A-fib, chronic V pacing. Pacemaker was interrogated demonstrating high LV lead threshold Echocardiogram performed showing preserved LV systolic function of 55% without wall motion abnormality. There is moderate concentric LVH. Mildly elevated pulmonary systolic pressures with mild TR and a moderate to large size left pleural effusion noted. Diuresed with IV Lasix 40 mg twice daily. 07/29/2023: Upon entrance into the room patient ambulating with the help of occupational therapy. Was primarily independent and steady on his feet. He denies any chest pain. Notes improvement in his breathing but continues to have dyspnea with exertion. Notes ongoing lower extremity edema with the worst of it being in his feet but extending up to the thighs. He denies palpitations. No lightheadedness or dizziness. He currently has a Corral which initially was draining clear urine but now is red. Notes that they had significant trouble putting the Corral in due to swelling. He is not having any pain. Labs: Renal function remains stable with a serum creatinine of 1.25. Potassium of 3.8. Mag of 2.1. Tele: Paced rhythm with underlying atrial fibrillation and IVCD, 70 to 80 bpm. I&O: -3.6L Weight: 95.3 kjg >>90.1 kg Review of Systems Review of Systems: All systems reviewed & are unremarkable except as noted in HPI & below Physical Exam Constitutional: WD/WN, vitals as above no acute distress Neck: trachea midline, no thyromegaly Respiratory: no respiratory distress and no labored breathing Auscultation: + diminished lung sounds (bases b/l, L>R), + crackles (faint bibasilar rales) and + wheezes; no rhonchi Cardiovascular: Rate/Rhythm: regular rate and + irregularly irregular Heart Sounds: no murmur Vessels: + JVD (in the upright position) Extremities: + edema (2+ LE edema to thighs) Chest (Breasts): Chest: + pacemaker Gastrointestinal (Abdomen): Inspection/Auscultation: + abdomen distended Percussion/Palpation: + abdomen firm; abdomen nontender Neurologic: PERRL, EOMI, accommodation nl, no face palsy, no dysarthria Psychiatric: A+Ox3, euthymic affect Results & Data Vital Signs (Past 12 Hours) Vital Signs Temp Pulse Resp BP Pulse Ox O2 Del Method 07/29/23 05:17 36.6 C 76 18 146/85 H 94 Room Air 07/29/23 04:12 36.6 C 81 19 146/85 H 94 Room Air 07/28/23 22:49 36.6 C 78 20 106/81 97 Room Air 07/28/23 20:30 Room Air Laboratory Results Cardiac Enzymes 07/28/23 07/28/23 07/28/23 Range/Units 09:58 10:00 11:46 AST 23 (13-39) U/L Troponin I High Sens 33.4 H 31.4 H (0-20) pg/ml B-Natriuretic Peptide 349 H (0-100) pg/ml Coagulation 07/28/23 Range/Units 09:58 PT 13.0 H (9.0-12.0) Seconds B-Natriuretic Peptide 349 H (0-100) pg/ml Lipids 07/29/23 Range/Units 05:19 Triglycerides 67 (0-150) mg/dl Cholesterol 87 (0-200) mg/dl HDL Cholesterol 30 mg/dl Cholesterol/HDL Ratio 2.9 (0-5) CBC 07/28/23 07/29/23 Range/Units 09:58 05:19 WBC 3.32 L 4.52 L (4.8-10.8) K/ul RBC 4.81 4.59 L (4.70-6.10) M/uL Hgb 14.4 13.7 L (14.0-18.0) g/dl Hct 43.2 40.0 L (42.0-52.0) % Plt Count 99 L 96 L (130-400) K/uL Neut # (Auto) 2.49 (1.40-6.50) K/uL Lymph # (Auto) 0.50 L (1.20-3.40) K/uL [place] # (Auto) 0.25 (0.11-0.59) K/uL Eos # (Auto) 0.06 (0.00-0.50) K/uL Baso # (Auto) 0.01 (0.00-0.20) K/uL Comprehensive Metabolic Panel 07/28/23 07/29/23 Range/Units 10:00 05:19 Sodium 142 142 (136-145) mmol/L Potassium 3.9 3.8 (3.5-5.1) mmol/L Chloride 106 104 (98-107) mmol/L Carbon Dioxide 32 30 (21-32) mmol/L BUN 27 H 27 H (6-23) mg/dl Creatinine 1.27 1.25 (0.6-1.4) mg/dl Glucose 116 H 92 (70-99(Fasting)) mg/dl Calcium 9.2 9.0 (8.6-10.3) mg/dl AST 23 (13-39) U/L ALT 15 (7-52) U/L Alkaline Phosphatase 186 H (34-104) U/L Total Protein 6.7 (6.0-8.3) gm/dl Albumin 4.0 (3.4-5.0) gm/dl Intake and Output 07/28/23 07/29/23 07/29/23 22:59 06:59 14:59 Output Total 2200 / 3650 300 / 3650 Balance -2200 / -3650 -300 / -3650 Output: Urine Amount (Catheter) 0 / 2500 300 / 2500 Corral/Indwelling 2200 / 2500 300 / 2500 Other: Weight 95.3 kg 90.1 kg Weight Measurement Method Standing Scale (1) Acute exacerbation of CHF (congestive heart failure) Heart failure type: unspecified Qualified Code(s): I50.9 - Heart failure, unspecified (3) HTN (hypertension) Hypertension type: primary hypertension Qualified Code(s): I10 - Essential (primary) hypertension
[2023-07-29] MEDS: lisinopril 2.5 MG TAB PO SCH (08:10)
[2023-07-29] MEDS: ASPIRIN 81 MG ECTAB PO SCH (08:10)
[2023-07-29] MEDS: carvediloL 12.5 MG TAB PO SCH ×2 (08:10→17:38)
[2023-07-29] MEDS: FUROSEMIDE 40 MG/4 ML VIAL IV SCH ×2 (08:11→17:30)
[2023-07-29] MEDS: HEPARIN SOD 5,000 UNIT/0.5 ML VIAL SQ SCH (08:11)
[2023-07-29] MEDS ORDERED: POTASSIUM CHLORIDE CRTAB 20 MEQ TABCR PO STA (10:15)
--- NOTE | 2023-07-29 12:30 | Electrocardiogram Report ---
Test Reason : Blood Pressure : / mmHG Vent. Rate : 079 BPM Atrial Rate : 072 BPM P-R Int : 000 ms QRS Dur : 138 ms QT Int : 412 ms P-R-T Axes : 000 270 003 degrees QTc Int : 472 ms Sinus vs. accelerated junctional rhythm Right bundle branch block Old Inferior infarct Abnormal ECG When compared with ECG of 28-JUL-2023 09:47, ventricular-paced complexes no longer present Confirmed by Paramjit Altman ([id number]) on 07/29/2023 12:30:34 PM Referred By: REFERRED SELF Confirmed By:Paramjit Altman
--- NOTE | 2023-07-29 13:18 | Communication Note ---
Date of Service: July 29, 2023 Single-chamber pacemaker interrogated with the assistance of Jack Mtz of [employer]. Pacing threshold stable at 0.5 V at 0.4 ms. Output maintained at 2 V.
--- NOTE | 2023-07-29 14:22 | XRay Report ---
XR chest 1V not portable CLINICAL HISTORY: s/p left thora with stat read COMPARISON STUDY: Chest radiograph July 28, 2023. FINDINGS: There is no pneumothorax following left thoracentesis. Left pleural effusion has significan tly decreased in size. Small residual left pleural effusion is noted. There is a small right pleural effusion. Cardiomegaly is again noted. There is pulmonary vascular congestion. Left subclavian pacer is in place. Left paratracheal lobular density, superior to the aortic arch, contains peripheral calc ifications. This is likely vascular in etiology. IMPRESSION: 1. No pneumothorax following left thoracentesis. Significant decrease in size of the left pleural eff usion. 2. Cardiomegaly with pulmonary vascular congestion. 3. Left paratracheal lobular density, superior to the aortic arch. This appears to contain peripheral calcifications and is probably vascular in etiology. CT of the chest with contrast is recommended fo r further evaluation. ACT 112: Negative or not required by law. Electronically signed by: Hesham Milian M.D. 07/29/2023 2:21 PM
--- NOTE | 2023-07-29 14:32 | Ultrasound Report ---
THYROID ULTRASOUND HISTORY: Abnormal chest x-ray. 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 FINDINGS: Right lobe: 42 x 12 x 12 mm. No nodules. Left lobe: 47 x 13 x 11 mm. No evidence for substernal extension. No nodules. Isthmus: 2 mm in thickness. No nodules. IMPRESSION: Normal thyroid ultrasound. No evidence for a substernal thyroid goiter. ACT 112: Negative or not required by law. Electronically signed by: Fernando Garcia M.D. 07/29/2023 2:31 PM
--- NOTE | 2023-07-29 14:53 | Hospitalist Progress Note ---
Date of Service July 29, 2023 Assessment & Plan (1) Acute exacerbation of CHF (congestive heart failure): (2) Pacemaker: (3) Elevated brain natriuretic peptide (BNP) level: (4) Bilateral edema of lower extremity: Plan: Acute on chronic CHF with preserved EF --CXR:Cardiomegaly with mild pulmonary vascular congestion and bilateral pleural effusions. Left basilar densities favor compressive atelectasis from the pleural effusion. A pneumonia could also have a similar appearance in the appropriate clinical setting. Abnormal left paratracheal lobular density. This favors a substernal thyroid goiter. However, in the absence of prior studies, a follow-up nonemergent chest CT is recommended for further evaluation. --ECHO: Moderate concentric LVH. No regional wall motion abnormality. EF 55%. Left atrium is severely dilated. Right atrium is moderately dilated. Aortic valve sclerosis moderate, without significant stenosis. Mild tricuspid regurgitation. Pulmonary artery pressure 41 mmHg. Moderate to large left pleural effusion. --BNP 349 -- Plan for thoracentesis as per cardiology --Pacemaker interrogated. Continue IV diuresis Continue lisinopril, carvedilol Monitor I's and O's, daily weight, volume status Appreciate cardiology input Left paratracheal lobular density Incidental finding on chest x-ray --Thyroid USD:Normal thyroid ultrasound. No evidence for a substernal thyroid goiter. -- Will obtain nonemergent CT chest for further evaluation Hematuria Hold SQ Heparin Monitor H&H Consider to hold aspirin as well if hematuria persisted Urology consulted Mild troponin elevation Likely demand ischemia secondary to CHF Pancytopenia Consider further evaluation as outpatient Monitor CBC Prediabetes HbA1c 6.2 Permanent atrial fibrillation s/p Watchman Continue carvedilol, aspirin 81 mg daily H/O Inguinal hernia repair S/P x 3 separate surgeries DVT Px: SCDs Re:Hematuria, Thrombocytopenia CODE STATUS: FULL CODE Admission and Anticipated Discharge Date Admission Date: July 28, 2023 Subjective Patient is seen and examined at bedside Less dyspnea today Still has significant lower extremity edema Denies any chest pain, dizziness, nausea, vomiting, abdominal pain Noted hematuria in corral No other complaints Review of Systems Review of Systems: All systems reviewed & are unremarkable except as noted in Subjective Physical Exam Physical Exam: Physical Exam: Vitals signs as noted above General Appearance:Moderately built and nourished, no apparent distress Head: normocephalic, Atraumatic Eyes: normal inspection, EOMI Neck: supple, Trachea midline Respiratory/Chest: Decreased breath sounds, basal crackles, +Pacer, No accessory muscle use Cardiovascular: Irregularly irregular, No murmur Abdomen/GI:Soft, Non tender, Bowel sounds present Extremities/Musculoskeletal:normal inspection,+ B/L LE edema Neurologic/Psych:AAOX3, grossly no focal neurological deficits Skin: normal color, warm Results & Data Results & Data Vital Signs (Past 12 Hours) Vital Signs Temp Pulse Pulse Resp BP Pulse Ox O2 Del Method 07/29/23 11:59 36.7 C 80 18 116/72 98 Room Air 07/29/23 08:33 36.7 C 78 18 104/58 L 91 Room Air 07/29/23 08:00 77 07/29/23 08:00 Room Air 07/29/23 05:17 36.6 C 76 18 146/85 H 94 Room Air 07/29/23 04:12 36.6 C 81 19 146/85 H 94 Room Air Laboratory Results Short CBC 07/29/23 Range/Units 05:19 WBC 4.52 L (4.8-10.8) K/ul Hgb 13.7 L (14.0-18.0) g/dl Hct 40.0 L (42.0-52.0) % Plt Count 96 L (130-400) K/uL BMP 07/29/23 05:19 Sodium 142 Potassium 3.8 Chloride 104 Carbon Dioxide 30 BUN 27 H Creatinine 1.25 Glucose 92 Calcium 9.0 (1) Acute exacerbation of CHF (congestive heart failure) Heart failure type: unspecified Qualified Code(s): I50.9 - Heart failure, unspecified
--- NOTE | 2023-07-29 15:37 | Ultrasound Report ---
Ultrasound-guided thoracentesis INDICATION: Large left pleural effusion PROCEDURE: Procedure and risks were explained. Informed consent was obtained. A final timeout was com pleted. The left posterior thorax was prepped and draped in sterile fashion. 1% buffered lidocaine wa s utilized for skin anesthesia. Utilizing ultrasound guidance, a 5 [place] safety centesis catheter was advanced into the left pleural effusion. Ultrasound images were obtained. 900 mL of pleural fluid was removed and sent to lab for a nalysis. The procedure was stopped secondary to pleuritic pain. The patient tolerated the procedure o therwise. A chest x-ray will be obtained post procedure. Vital signs will be monitored on the floor. IMPRESSION: Left thoracentesis as above. Performed, dictated, and signed by Shelton Collier PA-C; to be co-signed by Dr. Hesham Milian. Electronically signed by: Hesham Milian M.D. 07/29/2023 5:05 PM
--- NOTE | 2023-07-29 16:12 | Urology Consultation ---
<Statement entered by Jeferson Dunlap MD - 07/30/23 10:03> I have discussed Mr. Edmondson's case with ESTHER Aguilar and agree with the above documentation. He will require full hematuria workup with cystoscopy, with urine cytology and CT urogram. We will coordinate this as an outpatient. As long as he is still emptying his bladder, can continue to keep him hydrated and monitor. -Jeferson Dunlap MD. Date of Consultation July 29, 2023 Assessment & Plan (1) Gross hematuria: Plan 77yo/M admitted with acute exacerbation of CHF. On admission, Corral catheter was placed by nursing staff for monitoring of strict I's and O's. Since then, patient has developed hematuria. Urology asked to evaluate patient due to hematuria. Afebrile and hemodynamically stable. Labs today show hemoglobin stable 13.7 and normal renal function. UA on admit with trace blood, 0-4RBC. Corral currently draining appropriately - urine is light pink without clot. No acute urological intervention is warranted. The patient's hematuria may be due to trauma from Corral catheter insertion in the setting of anticoagulation. Recommend continued monitoring and can hand irrigate the catheter as needed for clots, retention, suprapubic pain. Once the patient's Corral catheter is no longer needed (this can be determined by the primary service) a voiding trial can be performed. Continue anticoagulation as felt necessary per primary team/cardiology. Urology can manage hematuria as needed. Will arrange outpatient follow-up with our service for full hematuria work-up. Urology will sign-off. Please call with any further questions or concerns. History of Present Illness Attending Physician: Dima Rios MD History of Present Illness 77 year old male who presented to [facility] 07/28/23 with complaints of worsening SOB, abdominal bloating and Lower extremity edema and admitted to medicine service for acute exacerbation of CHF. On admission, Corral catheter was placed by nursing staff for monitoring of strict I's and O's. Since then, patient has developed mild hematuria. Urology asked to evaluate patient due to hematuria. Patient examined at bedside today. Awake, sitting in bedside chair on arrival. at bedside. No acute distress. Corral intact, draining light pink urine without clot. Tolerating the catheter with minimal bother. Denies any pain or discomfort at present. Continues on aspirin. SQ Heparin on hold per primary team. Patient denies prior urological history. Does not follow with a urologist. Denies history of prostate or bladder cancer. At baseline, he reports some urinary urgency and frequency mostly after taking Lasix. Nocturia 1. Denies hematuria or dysuria. Feels he empties well. Denies history of urinary retention. Denies history of UTI. He does not take any urinary medications. Denies additional urological issues or concerns today. Allergies Allergy/AdvReac Type Severity Reaction Status Date / Time Penicillins AdvReac Unknown Verified 07/28/23 10:46 Home Medications Medication Instructions Recorded Confirmed Type aspirin 81 mg tablet 81 mg PO QAM 07/28/23 07/28/23 History carvedilol 12.5 mg tablet 12.5 mg PO BID 07/28/23 07/28/23 History furosemide 40 mg tablet 40 mg PO QAM 07/28/23 07/28/23 History glucosamine sulfate 750 mg tablet 0 mg PO QAM 07/28/23 07/28/23 History lisinopril 2.5 mg tablet 2.5 mg PO QAM 07/28/23 07/28/23 History Patient History Medical History (Updated 07/29/23 @ 16:09 by ESTHER Zayas) Chronic atrial fibrillation HTN (hypertension) CHF (congestive heart failure) Surgical History S/P cardiac pacemaker procedure History of left atrial appendage closure Family History Father Heart disease Sister Heart disease Social History Smoking Status: Never smoker Second Hand Exposure: No; Do You Dip or Chew Tobacco: No; Hx Alcohol Use: Yes Alcohol type: hard liquor Hx Substance Use: No Preferred Language: Spanish Communication Ability: Effective Stucco Worker Required: No Beliefs That Will Affect Care: None Current Living Situation: Spouse Current Living Situation Comment: lives at home, bathroom available on 1st floor Other Information That Helps Us Care for You: No Feels Safe at Home: Yes Safety Concerns: Feels Safe At This Time Assistive Devices: Glasses Review of Systems Review of Systems: All systems reviewed & are unremarkable except as noted in HPI & below Physical Exam Constitutional: well developed and well nourished; no acute distress Respiratory: normal respiratory effort; no respiratory distress and no labored breathing Musculoskeletal: Head/Neck/Chest: normocephalic Skin: No visible rashes or lesions to exposed skin areas Neurologic: moves all extremities and awake Psychiatric: A+Ox3, euthymic affect Genitourinary: Corral intact, draining pink-tinged urine Results & Data Vital Signs (Past 12 Hours) Vital Signs Temp Pulse Pulse Resp BP Pulse Ox O2 Del Method 07/29/23 11:59 36.7 C 80 18 116/72 98 Room Air 07/29/23 08:33 36.7 C 78 18 104/58 L 91 Room Air 07/29/23 08:00 77 07/29/23 08:00 Room Air 07/29/23 05:17 36.6 C 76 18 146/85 H 94 Room Air 07/29/23 04:12 36.6 C 81 19 146/85 H 94 Room Air PG Care Time/CCT Total # of Minutes Spent Total Time Spent with Patient: Total time spent is greater than 50% in coordination of care (as documented) at patient's floor/unit and/or counseling patient: Coding Level of Care Code 31819 INT INP/OBS CARE 2/55MIN Diagnoses Gross hematuria R31.0
[2023-07-29 16:19] LABS: Amylase Pleural Fluid 20 U/L
[2023-07-29 16:25] LABS: Glucose Pleural Fluid 142 mg/dl; LDH Pleural Fluid 70 U/L; Total Protein Pleural Fluid < 3.0 gm/dl
[2023-07-29 17:26] LABS: Appearance Pleural Fluid Clear; Color Pleural Fluid Yellow; Lymphocytes, Fluid 31 %; Mono,Macrophage,Mesothelial 64 %; Neutrophils, Fluid 5 %; RBC Pleural Fluid Auto < 2000 /uL; Source Pleural Fluid Left Lung; WBC Pleural Fluid Auto 347 /uL
[2023-07-30 06:15] LABS: Hematocrit (blood only) 41.7 % (42.0-52.0); Hemoglobin 13.7 g/dl (14.0-18.0); Mean Corpuscular Hemoglobin 29.5 pg (25.0-34.0); Mean Corpuscular Hgb Conc 32.9 g/dL (32.0-36.0); Mean Corpuscular Volume 89.9 fL (80.0-100.0); Platelet Count 88 K/uL (130-400); RDW Coefficient of Variation 16.2 % (11.5-14.5); RDW Standard Deviation 53.4 fL (36.4-46.3); Red Blood Count 4.64 M/uL (4.70-6.10)
[2023-07-30 06:28] LABS: Albumin Level 3.4 gm/dl (3.4-5.0); Bilirubin,Total 2.2 mg/dl (0.2-1.0); Calcium 8.8 mg/dl (8.6-10.3); Magnesium 2.1 mg/dl (1.7-2.4); Potassium 3.6 mmol/L (3.5-5.1)
[2023-07-30 06:34] LABS: BUN Creatinine Ratio 22.7 (10-20); Creatinine Clr Calc Pharmacy 48.6 ml/min; Est GFR (Non-African American) 50.9 ml/min
[2023-07-30 06:46] LABS: Thyroid Stimulating Hormone 2.283 uIu/ml (0.300-4.500)
[2023-07-30] MEDS: FUROSEMIDE 40 MG/4 ML VIAL IV SCH ×2 (09:14→17:06)
[2023-07-30] MEDS: carvediloL 12.5 MG TAB PO SCH ×2 (09:14→17:06)
[2023-07-30] MEDS: POTASSIUM CHLORIDE CRTAB 20 MEQ TABCR PO SCH (09:15)
[2023-07-30] MEDS: lisinopril 2.5 MG TAB PO SCH (09:15)
[2023-07-30] MEDS: ASPIRIN 81 MG ECTAB PO SCH (09:15)
--- NOTE | 2023-07-30 14:50 | Cardiology Progress Note ---
Date of Service July 30, 2023 Assessment & Plan (1) Acute exacerbation of CHF (congestive heart failure): (2) Bilateral edema of lower extremity: (3) HTN (hypertension): (4) Pacemaker: (5) Chronic atrial fibrillation: (6) Presence of Watchman left atrial appendage closure device: Plan Impression: Patient admitted with signs/symptoms of diastolic CHF exacerbation with SOB, b/l pleural effusions, abdominal bloating, edema. HS troponin minimally elevated and consistent with CHF, not ACS. EKG with underlying afib, chronic V pacing. Echocardiogram with a preserved LV systolic function, no wall motion abnormalities, and mildly elevated pulmonary pressures. Moderate to large pleural effusion noted and underwent subsequent thoracentesis. Plan: Acute on chronic diastolic CHF: Hemodynamically stable and improved symptoms s/p Thoracentesis. Repeat chest x-ray in the AM. Renal function stable. Continue furosemide 40 mg IV BID. Monitor I+O's, +Corral cath in place, hematuria noted (possibly due to trauma with Corral insertion)--will defer to primary team, patient not on AC only low dose ASA. 2 g dietary sodium restriction Supplement potassium if needed. May consider adding Spironolactone to HF regimen; however, will hold at this time due to hypotension. Daily weight with standing scale CHF education Single-chamber permanent pacemaker: he has about 8 months (or less) of battery longevity. Will need to establish with our device clinic. Hypertension: Continue home dose carvedilol, lisinopril and continue IV diuretics. Will continue to assess and consider addition of Spironolactone if pressure can tolerate Permanent atrial fibrillation: Controlled rates--Continue carvedilol. He is s/p Watchman and no longer in need of anticoagulation therapy Continue ASA 81 mg daily Records have been requested from [facility], previously saw Dr. Degroot per patient Case has been discussed with Dr. Watson. Further recommendations regarding plan of care as per his assessment. I spent a total of 30 minutes on the date of service in preparation, delivery, documentation of the care provided to the patient excluding any time spent in the performance of separately billed services. ESTHER [facility] Admission and Anticipated Discharge Date Admission Date: July 28, 2023 Supervising Physician Co-Signing Physician Notes Attending attestation: I have reviewed the advanced practitioner's documentation and agree with the plan of care. I accept the responsibility for the associated risk of managing the patient. Subjective: Patient feeling subjectively improved. Still with hematuria, but improved compared to yesterday. Exam: Cardiovascular: Irregular rhythm, no murmurs, 2+ lower extremity edema Data: Pleural fluid cytology revealing benign mesothelial cells, many red blood cells and lymphocytes noted Impression/ Plan: Acute on chronic heart failure with preserved ejection fraction Chronic atrial fibrillation Single-chamber permanent pacemaker, 8 months longevity. Interrogated 07/29/2023 with the assistance of [employer] sales representative health insurance, and pacing thresholds adequate, no adjustments necessary History of Watchman device, therefore not on anticoagulation Continue aspirin, carvedilol, lisinopril, furosemide 40 mg twice daily, potassium chloride, subcu heparin for DVT prophylaxis. I spent a total of 20 minutes coordinating, documenting, and providing care for this patient excluding time spent in the performance of separately billed services or time spent by another provider. Marcelo Watson DO Subjective 07/30/23: Patient seen and examined in follow up today. Patient currently out of bed to chair and offers no cardiac complaints. He reports that his breathing is significantly better post ultrasound guided thoracenteses of the left pleural effusion with IR. Review of labs, documentation, imaging and vital signs complete Review of telemetry shows paced rhythm with underlying A-fib rates in the 70's Review of Systems Review of Systems: All systems reviewed & are unremarkable except as noted in HPI & below Physical Exam Constitutional: well developed and well nourished; no acute distress Neck: normal visual inspection and trachea midline Respiratory: normal respiratory effort; no respiratory distress and no cough Auscultation: + diminished lung sounds (bilateral bases) and + crackles (faint crackles noted in left base. cleared with coughing ) Cardiovascular: Rate/Rhythm: + irregularly irregular (paced on telemetry) Heart Sounds: no murmur Vessels: no JVD Extremities: + edema (+2 BLE) Skin: no rashes, warm and dry Psychiatric: A+Ox3, euthymic affect Results & Data Vital Signs (Past 12 Hours) Vital Signs Temp Pulse Resp BP Pulse Ox O2 Del Method 07/30/23 14:40 75 18 91/63 L 96 Room Air 07/30/23 08:00 36.6 C 97 H 18 99/60 L 92 Room Air 07/30/23 08:00 Room Air 07/30/23 07:00 36.7 C 88 20 124/73 92 Room Air 07/30/23 04:13 36.6 C 76 16 111/74 92 Room Air Laboratory Results Cardiac Enzymes 07/29/23 07/30/23 Range/Units 15:04 05:56 AST 17 (13-39) U/L Lactate Dehydrogenase 194 (86-244) U/L CBC 07/30/23 Range/Units 05:56 WBC 5.00 (4.8-10.8) K/ul RBC 4.64 L (4.70-6.10) M/uL Hgb 13.7 L (14.0-18.0) g/dl Hct 41.7 L (42.0-52.0) % Plt Count 88 L (130-400) K/uL Comprehensive Metabolic Panel 07/30/23 Range/Units 05:56 Sodium 141 (136-145) mmol/L Potassium 3.6 (3.5-5.1) mmol/L Chloride 103 (98-107) mmol/L Carbon Dioxide 32 (21-32) mmol/L BUN 30 H (6-23) mg/dl Creatinine 1.32 (0.6-1.4) mg/dl Glucose 102 H (70-99(Fasting)) mg/dl Calcium 8.8 (8.6-10.3) mg/dl Direct Bilirubin 1.0 H (0-0.2) mg/dl AST 17 (13-39) U/L ALT 11 (7-52) U/L Alkaline Phosphatase 169 H (34-104) U/L Total Protein 6.0 (6.0-8.3) gm/dl Albumin 3.4 (3.4-5.0) gm/dl Intake and Output 07/29/23 07/30/23 07/30/23 22:59 06:59 14:59 Output Total 1600 / 2850 1250 / 2850 1250 / 1250 Balance -1600 / -2850 -1250 / -2850 -1250 / -1250 Output: Urine Amount (Catheter) 1600 / 2850 1250 / 2850 1250 / 1250 Corral/Indwelling 1600 / 2850 1250 / 2850 1250 / 1250 (1) Acute exacerbation of CHF (congestive heart failure) Heart failure type: unspecified Qualified Code(s): I50.9 - Heart failure, unspecified (3) HTN (hypertension) Hypertension type: primary hypertension Qualified Code(s): I10 - Essential (primary) hypertension
--- NOTE | 2023-07-30 17:57 | Hospitalist Progress Note ---
Date of Service July 30, 2023 Assessment & Plan (1) Acute exacerbation of CHF (congestive heart failure): (2) Pacemaker: (3) Elevated brain natriuretic peptide (BNP) level: (4) Bilateral edema of lower extremity: Plan: Acute on chronic CHF with preserved EF --CXR:Cardiomegaly with mild pulmonary vascular congestion and bilateral pleural effusions. Left basilar densities favor compressive atelectasis from the pleural effusion. A pneumonia could also have a similar appearance in the appropriate clinical setting. Abnormal left paratracheal lobular density. This favors a substernal thyroid goiter. However, in the absence of prior studies, a follow-up nonemergent chest CT is recommended for further evaluation. --ECHO: Moderate concentric LVH. No regional wall motion abnormality. EF 55%. Left atrium is severely dilated. Right atrium is moderately dilated. Aortic valve sclerosis moderate, without significant stenosis. Mild tricuspid regurgitation. Pulmonary artery pressure 41 mmHg. Moderate to large left pleural effusion. --BNP 349 --S/P Thoracentesis --Pacemaker interrogated. Continue IV diuresis Continue lisinopril, carvedilol Monitor I's and O's, daily weight, volume status Appreciate cardiology input Will repeat chest x-ray tomorrow Continue current management Plan to add Aldactone as able Left paratracheal lobular density Incidental finding on chest x-ray --Thyroid USD:Normal thyroid ultrasound. No evidence for a substernal thyroid goiter. -- Will obtain nonemergent CT chest for further evaluation Hematuria Likely due to traumatic catheter Hematuria resolving Monitor H&H Appreciate urology input Follow-up with urology as outpatient for cystoscopy as outpatient Mild troponin elevation Likely demand ischemia secondary to CHF Pancytopenia Consider further evaluation as outpatient Monitor CBC Prediabetes HbA1c 6.2 Permanent atrial fibrillation s/p Watchman Continue carvedilol, aspirin 81 mg daily H/O Inguinal hernia repair S/P x 3 separate surgeries DVT Px: SCDs Re:Hematuria, Thrombocytopenia CODE STATUS: FULL CODE Admission and Anticipated Discharge Date Admission Date: July 28, 2023 Subjective Patient is seen and examined at bedside Hematuria resolved Less dyspnea today No other complaints Discussed with patient's at bedside Still has significant lower extremity edema Denies any chest pain, dizziness, nausea, vomiting, abdominal pain Review of Systems Review of Systems: All systems reviewed & are unremarkable except as noted in Subjective Physical Exam Physical Exam: Physical Exam: Vitals signs as noted above General Appearance:Moderately built and nourished, no apparent distress Head: normocephalic, Atraumatic Eyes: normal inspection, EOMI Neck: supple, Trachea midline Respiratory/Chest: Decreased breath sounds, basal crackles, +Pacer, No accessory muscle use Cardiovascular: Irregularly irregular, No murmur Abdomen/GI:Soft, Non tender, Bowel sounds present Extremities/Musculoskeletal:normal inspection,+ B/L LE edema Neurologic/Psych:AAOX3, grossly no focal neurological deficits,+ hearing impairment Skin: normal color, warm Results & Data Results & Data Vital Signs (Past 12 Hours) Vital Signs Temp Pulse Resp BP Pulse Ox O2 Del Method 07/30/23 16:00 16 127/77 96 Room Air 07/30/23 14:40 75 18 91/63 L 96 Room Air 07/30/23 08:00 36.6 C 97 H 18 99/60 L 92 Room Air 07/30/23 08:00 Room Air 07/30/23 07:00 36.7 C 88 20 124/73 92 Room Air Laboratory Results Short CBC 07/30/23 Range/Units 05:56 WBC 5.00 (4.8-10.8) K/ul Hgb 13.7 L (14.0-18.0) g/dl Hct 41.7 L (42.0-52.0) % Plt Count 88 L (130-400) K/uL BMP 07/30/23 05:56 Sodium 141 Potassium 3.6 Chloride 103 Carbon Dioxide 32 BUN 30 H Creatinine 1.32 Glucose 102 H Calcium 8.8 Liver Function 07/30/23 Range/Units 05:56 Total Bilirubin 2.2 H (0.2-1.0) mg/dl Direct Bilirubin 1.0 H (0-0.2) mg/dl AST 17 (13-39) U/L ALT 11 (7-52) U/L Alkaline Phosphatase 169 H (34-104) U/L Albumin 3.4 (3.4-5.0) gm/dl (1) Acute exacerbation of CHF (congestive heart failure) Heart failure type: unspecified Qualified Code(s): I50.9 - Heart failure, unspecified
[2023-07-31] MEDS: carvediloL 12.5 MG TAB PO SCH ×2 (07:39→17:28)
[2023-07-31 08:02] LABS: Hematocrit (blood only) 40.9 % (42.0-52.0); Mean Corpuscular Hgb Conc 34.2 g/dL (32.0-36.0); Mean Corpuscular Volume 87.6 fL (80.0-100.0); Platelet Count 93 K/uL (130-400); RDW Coefficient of Variation 16.3 % (11.5-14.5); RDW Standard Deviation 52.5 fL (36.4-46.3); Red Blood Count 4.67 M/uL (4.70-6.10); White Blood Count 5.61 K/ul (4.8-10.8)
[2023-07-31 08:09] LABS: BUN Creatinine Ratio 26.2 (10-20); Calcium 8.9 mg/dl (8.6-10.3); Creatinine Clr Calc Pharmacy 52.7 ml/min; Magnesium 2.1 mg/dl (1.7-2.4); Potassium 4.1 mmol/L (3.5-5.1)
[2023-07-31] MEDS: FUROSEMIDE 40 MG/4 ML VIAL IV SCH ×2 (08:21→17:28)
[2023-07-31] MEDS: lisinopril 2.5 MG TAB PO SCH (08:22)
[2023-07-31] MEDS: ASPIRIN 81 MG ECTAB PO SCH (08:22)
[2023-07-31] MEDS: POTASSIUM CHLORIDE CRTAB 20 MEQ TABCR PO SCH (08:22)
--- NOTE | 2023-07-31 09:22 | XRay Report ---
TWO VIEW CHEST CLINICAL HISTORY: Congestive heart failure status post thoracentesis. FINDINGS: AP and lateral chest radiographs are compared to study dated 07/29/2023. A single lead cardi ac pacemaker is unchanged in position and partially obscures the left upper lung. An atrial septal cl osure device is suspected. A lobular left paratracheal density is unchanged. The heart is enlarged an d noting atherosclerotic calcification of the thoracic aorta. There is mild pulmonary vascular conges tion. There are small pleural effusions with dependent consolidation. There is no pneumothorax. The b rhina thorax appears intact. IMPRESSION: 1. No pneumothorax is identified status post thoracentesis. 2. Cardiomegaly and cardiac pacemaker with mild pulmonary vascular congestion. 3. Small pleural effusions with dependent atelectasis. 4. A left paratracheal density is indeterminant and unchanged. ACT 112: Negative or not required by law. Electronically signed by: Omid Echeverria M.D. 07/31/2023 9:20 AM
--- NOTE | 2023-07-31 11:33 | Cardiology Progress Note ---
Date of Service July 31, 2023 Assessment & Plan (1) Acute exacerbation of CHF (congestive heart failure): (2) Bilateral edema of lower extremity: (3) HTN (hypertension): (4) Pacemaker: (5) Chronic atrial fibrillation: (6) Presence of Watchman left atrial appendage closure device: Plan Continue IV diuresis with furosemide 40 mg twice daily with potassium supplementation. Follow daily weight, fluid balance, GFR, and electrolytes. Continue other medications including aspirin, carvedilol, and lisinopril as ordered. Repeat x-ray reviewed this a.m. No significant pleural effusion noted. Telemetry reveals chronic atrial fibrillation with fair rate control. Patient is not chronically anticoagulated with Watchman device in place. Continue low- dose aspirin. Admission and Anticipated Discharge Date Admission Date: July 28, 2023 Subjective Patient seen and examined at the bedside. Fluid balance -5.8 L. Renal function remains stable. Weight is down nearly 10 kg since admission. Lower extremity edema persist. Denies chest pain or shortness of breath. No palpitations, lightheadedness, or dizziness. Telemetry reveals atrial fibrillation in the 70s-80s. Review of Systems Review of Systems: All systems reviewed & are unremarkable except as noted in Subjective Physical Exam Constitutional: well nourished; no acute distress Respiratory: no respiratory distress and no labored breathing Auscultation: + rales (Left base); no rhonchi and no wheezes Cardiovascular: Rate/Rhythm: + irregularly irregular Heart Sounds: normal S1 and normal S2; no murmur Vessels: radial pulses present; no JVD Gastrointestinal (Abdomen): Inspection/Auscultation: normal bowel sounds; abdomen not distended Percussion/Palpation: abdomen soft; abdomen nontender, no guarding and abdomen not rigid Neurologic: CN's II-XI intact bilaterally and moves all extremities; no focal motor deficits Psychiatric: A+Ox3, euthymic affect Results & Data Vital Signs (Past 12 Hours) Vital Signs Temp Pulse Resp BP Pulse Ox O2 Del Method 07/31/23 10:50 36.6 C 79 18 128/76 97 Room Air 07/31/23 07:05 36.6 C 85 18 108/68 92 Room Air 07/31/23 03:00 36.7 C 77 112/68 96 Room Air 07/30/23 23:46 36.9 C 74 18 111/63 95 Room Air Laboratory Results CBC 07/31/23 Range/Units 07:10 WBC 5.61 (4.8-10.8) K/ul RBC 4.67 L (4.70-6.10) M/uL Hgb 14.0 (14.0-18.0) g/dl Hct 40.9 L (42.0-52.0) % Plt Count 93 L (130-400) K/uL Comprehensive Metabolic Panel 07/31/23 Range/Units 07:10 Sodium 140 (136-145) mmol/L Potassium 4.1 (3.5-5.1) mmol/L Chloride 101 (98-107) mmol/L Carbon Dioxide 32 (21-32) mmol/L BUN 32 H (6-23) mg/dl Creatinine 1.22 (0.6-1.4) mg/dl Glucose 94 (70-99(Fasting)) mg/dl Calcium 8.9 (8.6-10.3) mg/dl Intake and Output 07/30/23 07/31/23 07/31/23 22:59 06:59 14:59 Output Total 1550 / 5050 600 / 5050 800 / 800 Balance -1550 / -5050 -600 / -5050 -800 / -800 Output: Urine Amount (Catheter) 1550 / 5050 600 / 5050 800 / 800 Corral/Indwelling 1550 / 5050 600 / 5050 800 / 800 Other: Weight 90.5 kg 85.5 kg Weight Measurement Method Standing Scale Standing Scale Patient Weight 08/01/23 06:59 Weight 85.5 kg (1) Acute exacerbation of CHF (congestive heart failure) Heart failure type: unspecified Qualified Code(s): I50.9 - Heart failure, unspecified (3) HTN (hypertension) Hypertension type: primary hypertension Qualified Code(s): I10 - Essential (primary) hypertension
--- NOTE | 2023-07-31 17:14 | Hospitalist Progress Note ---
Date of Service July 31, 2023 Assessment & Plan (1) Acute exacerbation of CHF (congestive heart failure): (2) Pacemaker: (3) Elevated brain natriuretic peptide (BNP) level: (4) Bilateral edema of lower extremity: Plan: Acute on chronic CHF with preserved EF --CXR:Cardiomegaly with mild pulmonary vascular congestion and bilateral pleural effusions. Left basilar densities favor compressive atelectasis from the pleural effusion. A pneumonia could also have a similar appearance in the appropriate clinical setting. Abnormal left paratracheal lobular density. This favors a substernal thyroid goiter. However, in the absence of prior studies, a follow-up nonemergent chest CT is recommended for further evaluation. --ECHO: Moderate concentric LVH. No regional wall motion abnormality. EF 55%. Left atrium is severely dilated. Right atrium is moderately dilated. Aortic valve sclerosis moderate, without significant stenosis. Mild tricuspid regurgitation. Pulmonary artery pressure 41 mmHg. Moderate to large left pleural effusion. --BNP 349 --S/P Thoracentesis --Pacemaker interrogated. Continue IV diuresis Continue lisinopril, carvedilol Monitor I's and O's, daily weight, volume status Appreciate cardiology input Plan to add Aldactone as able CXR today showed mild pulmonary vascular congestion Continue IV Lasix per cardiology Left paratracheal lobular density Incidental finding on chest x-ray --Thyroid USD:Normal thyroid ultrasound. No evidence for a substernal thyroid goiter. -- Will obtain nonemergent CT chest for further evaluation Hematuria Likely due to traumatic catheter Monitor H&H Appreciate urology input Follow-up with urology as outpatient for cystoscopy as outpatient Hemoglobin stable Still has intermittent minimal hematuria Mild troponin elevation Likely demand ischemia secondary to CHF Pancytopenia Consider further evaluation as outpatient Monitor CBC Prediabetes HbA1c 6.2 Permanent atrial fibrillation s/p Watchman Continue carvedilol, aspirin 81 mg daily H/O Inguinal hernia repair S/P x 3 separate surgeries DVT Px: SCDs Re:Hematuria, Thrombocytopenia CODE STATUS: FULL CODE Admission and Anticipated Discharge Date Admission Date: July 28, 2023 Subjective Patient is seen and examined at bedside Subjectively feels well Still has intermittent hematuria Edema very slowly improving Denies any chest pain, dyspnea, dizziness, nausea, vomiting, abdominal pain Review of Systems Review of Systems: All systems reviewed & are unremarkable except as noted in Subjective Physical Exam Physical Exam: Physical Exam: Vitals signs as noted above General Appearance:Moderately built and nourished, no apparent distress Head: normocephalic, Atraumatic Eyes: normal inspection, EOMI Neck: supple, Trachea midline Respiratory/Chest: Decreased breath sounds, basal crackles, +Pacer, No accessory muscle use Cardiovascular: Irregularly irregular, No murmur Abdomen/GI:Soft, Non tender, Bowel sounds present Extremities/Musculoskeletal:normal inspection,+ B/L LE edema Neurologic/Psych:AAOX3, grossly no focal neurological deficits,+ hearing impairment Skin: normal color, warm Results & Data Results & Data Vital Signs (Past 12 Hours) Vital Signs Temp Pulse Resp BP Pulse Ox O2 Del Method 07/31/23 16:00 36.9 C 79 18 114/66 95 Room Air 07/31/23 10:50 36.6 C 79 18 128/76 97 Room Air 07/31/23 07:05 36.6 C 85 18 108/68 92 Room Air Laboratory Results Short CBC 07/31/23 Range/Units 07:10 WBC 5.61 (4.8-10.8) K/ul Hgb 14.0 (14.0-18.0) g/dl Hct 40.9 L (42.0-52.0) % Plt Count 93 L (130-400) K/uL BMP 07/31/23 07:10 Sodium 140 Potassium 4.1 Chloride 101 Carbon Dioxide 32 BUN 32 H Creatinine 1.22 Glucose 94 Calcium 8.9 (1) Acute exacerbation of CHF (congestive heart failure) Heart failure type: unspecified Qualified Code(s): I50.9 - Heart failure, unspecified
[2023-08-01 06:28] LABS: Hematocrit (blood only) 45.6 % (42.0-52.0); Hemoglobin 14.9 g/dl (14.0-18.0)
[2023-08-01 06:43] LABS: BUN Creatinine Ratio 25.4 (10-20); Calcium 9.2 mg/dl (8.6-10.3); Potassium 4.4 mmol/L (3.5-5.1)
[2023-08-01] MEDS: carvediloL 12.5 MG TAB PO SCH ×2 (09:07→18:14)
[2023-08-01] MEDS: ASPIRIN 81 MG ECTAB PO SCH (09:07)
[2023-08-01] MEDS: POTASSIUM CHLORIDE CRTAB 20 MEQ TABCR PO SCH (09:08)
[2023-08-01] MEDS: FUROSEMIDE 40 MG/4 ML VIAL IV SCH ×2 (09:08→18:14)
--- NOTE | 2023-08-01 15:33 | Hospitalist Progress Note ---
Date of Service August 01, 2023 Assessment & Plan (1) Acute exacerbation of CHF (congestive heart failure): (2) Pacemaker: (3) Elevated brain natriuretic peptide (BNP) level: (4) Bilateral edema of lower extremity: Plan: Acute on chronic CHF with preserved EF --CXR:Cardiomegaly with mild pulmonary vascular congestion and bilateral pleural effusions. Left basilar densities favor compressive atelectasis from the pleural effusion. A pneumonia could also have a similar appearance in the appropriate clinical setting. Abnormal left paratracheal lobular density. This favors a substernal thyroid goiter. However, in the absence of prior studies, a follow-up nonemergent chest CT is recommended for further evaluation. --ECHO: Moderate concentric LVH. No regional wall motion abnormality. EF 55%. Left atrium is severely dilated. Right atrium is moderately dilated. Aortic valve sclerosis moderate, without significant stenosis. Mild tricuspid regurgitation. Pulmonary artery pressure 41 mmHg. Moderate to large left pleural effusion. --BNP 349 --S/P Thoracentesis --Pacemaker interrogated. Continue IV diuresis Continue carvedilol with holding parameters Monitor I's and O's, daily weight, volume status Appreciate cardiology input Plan to add Aldactone as able Continue IV Lasix per cardiology Lisinopril held due to low BP Diuresing well Left paratracheal lobular density Incidental finding on chest x-ray --Thyroid USD:Normal thyroid ultrasound. No evidence for a substernal thyroid goiter. -- Will obtain nonemergent CT chest for further evaluation Hematuria Likely due to traumatic catheter Monitor H&H Appreciate urology input Follow-up with urology as outpatient for cystoscopy as outpatient Still has intermittent minimal hematuria Hb Stable Mild troponin elevation Likely demand ischemia secondary to CHF Pancytopenia Consider further evaluation as outpatient Monitor CBC Prediabetes HbA1c 6.2 Permanent atrial fibrillation s/p Watchman Continue carvedilol, aspirin 81 mg daily H/O Inguinal hernia repair S/P x 3 separate surgeries DVT Px: SCDs Re:Hematuria, Thrombocytopenia CODE STATUS: FULL CODE Admission and Anticipated Discharge Date Admission Date: July 28, 2023 Subjective Patient is seen and examined at bedside No new complaints Hematuria much improved Leg edema improving Denies any chest pain, dyspnea, dizziness, nausea, vomiting, abdominal pain Review of Systems Review of Systems: All systems reviewed & are unremarkable except as noted in Subjective Physical Exam Physical Exam: Physical Exam: Vitals signs as noted above General Appearance:Moderately built and nourished, no apparent distress Head: normocephalic, Atraumatic Eyes: normal inspection, EOMI Neck: supple, Trachea midline Respiratory/Chest: Decreased breath sounds, basal crackles, +Pacer, No accessory muscle use Cardiovascular: Irregularly irregular, No murmur Abdomen/GI:Soft, Non tender, Bowel sounds present Extremities/Musculoskeletal:normal inspection,+ B/L LE edema Neurologic/Psych:AAOX3, grossly no focal neurological deficits,+ hearing impairment Skin: normal color, warm Results & Data Results & Data Vital Signs (Past 12 Hours) Vital Signs Temp Pulse Pulse Resp BP Pulse Ox O2 Del Method 08/01/23 15:18 79 08/01/23 11:37 36.7 C 72 19 94/54 L 95 Room Air 08/01/23 09:00 Room Air 08/01/23 07:33 36.7 C 81 18 100/59 L 94 Room Air Laboratory Results Short CBC 08/01/23 Range/Units 06:02 Hgb 14.9 (14.0-18.0) g/dl Hct 45.6 (42.0-52.0) % BMP 08/01/23 06:02 Sodium 138 Potassium 4.4 Chloride 100 Carbon Dioxide 34 H BUN 34 H Creatinine 1.34 Glucose 101 H Calcium 9.2 (1) Acute exacerbation of CHF (congestive heart failure) Heart failure type: unspecified Qualified Code(s): I50.9 - Heart failure, unspecified
--- NOTE | 2023-08-01 15:35 | Cardiology Progress Note ---
Date of Service August 01, 2023 Assessment & Plan (1) Acute exacerbation of CHF (congestive heart failure): (2) Bilateral edema of lower extremity: (3) HTN (hypertension): (4) Pacemaker: (5) Chronic atrial fibrillation: (6) Presence of Watchman left atrial appendage closure device: Plan Continue IV diuresis with furosemide 40 mg twice daily with potassium supplementation. Follow daily weight, fluid balance, GFR, and electrolytes. Continue other medications including aspirin, carvedilol, and lisinopril as ordered. Telemetry reveals chronic atrial fibrillation with fair rate control. Patient is not chronically anticoagulated with Watchman device in place. Continue low- dose aspirin. Possible discharge in 24 to 48 hours. Admission and Anticipated Discharge Date Admission Date: July 28, 2023 Subjective Patient seen examined the bedside. Feeling better today. Fluid balance negative nearly 3 L. Stable renal function. Edema improving. Denies orthopnea or PND. present at bedside. Offers no additional concerns/complaints. Telemetry reveals atrial fibrillation in the 80s. Review of Systems Review of Systems: All systems reviewed & are unremarkable except as noted in Subjective Physical Exam Constitutional: well nourished; no acute distress Respiratory: no respiratory distress and no labored breathing Auscultation: + rales (Left base); no rhonchi and no wheezes Cardiovascular: Rate/Rhythm: + irregularly irregular Heart Sounds: normal S1 and normal S2; no murmur Vessels: radial pulses present; no JVD Gastrointestinal (Abdomen): Inspection/Auscultation: normal bowel sounds; abdomen not distended Percussion/Palpation: abdomen soft; abdomen nontender, no guarding and abdomen not rigid Neurologic: CN's II-XI intact bilaterally and moves all extremities; no focal motor deficits Psychiatric: A+Ox3, euthymic affect Results & Data Vital Signs (Past 12 Hours) Vital Signs Temp Pulse Pulse Resp BP Pulse Ox O2 Del Method 08/01/23 15:18 79 08/01/23 11:37 36.7 C 72 19 94/54 L 95 Room Air 08/01/23 09:00 Room Air 08/01/23 07:33 36.7 C 81 18 100/59 L 94 Room Air Laboratory Results CBC 08/01/23 Range/Units 06:02 Hgb 14.9 (14.0-18.0) g/dl Hct 45.6 (42.0-52.0) % Comprehensive Metabolic Panel 08/01/23 Range/Units 06:02 Sodium 138 (136-145) mmol/L Potassium 4.4 (3.5-5.1) mmol/L Chloride 100 (98-107) mmol/L Carbon Dioxide 34 H (21-32) mmol/L BUN 34 H (6-23) mg/dl Creatinine 1.34 (0.6-1.4) mg/dl Glucose 101 H (70-99(Fasting)) mg/dl Calcium 9.2 (8.6-10.3) mg/dl Intake and Output 08/01/23 08/01/23 08/01/23 06:59 14:59 22:59 Intake Total 240 / 240 Output Total 650 / 3750 1000 / 1000 Balance -650 / -2950 -760 / -760 Intake: Oral 240 / 240 Output: Urine Amount (Catheter) 650 / 3750 1000 / 1000 Corral/Indwelling 650 / 3750 1000 / 1000 Other: Weight 82.8 kg Weight Measurement Method Standing Scale (1) Acute exacerbation of CHF (congestive heart failure) Heart failure type: unspecified Qualified Code(s): I50.9 - Heart failure, unspecified (3) HTN (hypertension) Hypertension type: primary hypertension Qualified Code(s): I10 - Essential (primary) hypertension
[2023-08-02 06:59] LABS: Hematocrit (blood only) 41.7 % (42.0-52.0); Hemoglobin 13.8 g/dl (14.0-18.0); Mean Corpuscular Hemoglobin 29.9 pg (25.0-34.0); Mean Corpuscular Hgb Conc 33.1 g/dL (32.0-36.0); Mean Corpuscular Volume 90.3 fL (80.0-100.0); Mean Platelet Volume 11.7 fL (9.4-12.4); Platelet Count 100 K/uL (130-400); RDW Coefficient of Variation 15.8 % (11.5-14.5); RDW Standard Deviation 52.2 fL (36.4-46.3); Red Blood Count 4.62 M/uL (4.70-6.10)
[2023-08-02 07:20] LABS: BUN Creatinine Ratio 24.7 (10-20); Creatinine Clr Calc Pharmacy 42.2 ml/min; Est GFR (African American) 52.3 ml/min; Est GFR (Non-African American) 45.1 ml/min
[2023-08-02 07:21] LABS: Calcium 8.8 mg/dl (8.6-10.3); Magnesium 2.2 mg/dl (1.7-2.4)
[2023-08-02] MEDS: ASPIRIN 81 MG ECTAB PO SCH (08:51)
[2023-08-02] MEDS: POTASSIUM CHLORIDE CRTAB 20 MEQ TABCR PO SCH (08:51)
[2023-08-02] MEDS: FUROSEMIDE 40 MG/4 ML VIAL IV SCH ×2 (08:51→16:21)
[2023-08-02] MEDS: carvediloL 12.5 MG TAB PO SCH ×2 (08:51→16:21)
--- NOTE | 2023-08-02 16:59 | Hospitalist Progress Note ---
Date of Service August 02, 2023 Assessment & Plan (1) Acute exacerbation of CHF (congestive heart failure): (2) Pacemaker: (3) Elevated brain natriuretic peptide (BNP) level: (4) Bilateral edema of lower extremity: Plan: Acute on chronic CHF with preserved EF --CXR:Cardiomegaly with mild pulmonary vascular congestion and bilateral pleural effusions. Left basilar densities favor compressive atelectasis from the pleural effusion. A pneumonia could also have a similar appearance in the appropriate clinical setting. Abnormal left paratracheal lobular density. This favors a substernal thyroid goiter. However, in the absence of prior studies, a follow-up nonemergent chest CT is recommended for further evaluation. --ECHO: Moderate concentric LVH. No regional wall motion abnormality. EF 55%. Left atrium is severely dilated. Right atrium is moderately dilated. Aortic valve sclerosis moderate, without significant stenosis. Mild tricuspid regurgitation. Pulmonary artery pressure 41 mmHg. Moderate to large left pleural effusion. --BNP 349 --S/P Thoracentesis --Pacemaker interrogated. Continue IV diuresis Continue carvedilol with holding parameters Monitor I's and O's, daily weight, volume status Appreciate cardiology input Plan to add Aldactone as able Continue IV Lasix>> transition to torsemide 20 mg daily Lisinopril held due to low BP Rising creatinine secondary to diuretics Monitor renal function Left paratracheal lobular density Incidental finding on chest x-ray --Thyroid USD:Normal thyroid ultrasound. No evidence for a substernal thyroid goiter. -- Will obtain nonemergent CT chest for further evaluation Hematuria Likely due to traumatic catheter Monitor H&H Appreciate urology input Follow-up with urology as outpatient for cystoscopy as outpatient Still has intermittent minimal hematuria Hb Stable Mild troponin elevation Likely demand ischemia secondary to CHF Pancytopenia Consider further evaluation as outpatient Monitor CBC Prediabetes HbA1c 6.2 Permanent atrial fibrillation s/p Watchman Continue carvedilol, aspirin 81 mg daily H/O Inguinal hernia repair S/P x 3 separate surgeries DVT Px: SCDs Re:Hematuria, Thrombocytopenia CODE STATUS: FULL CODE Admission and Anticipated Discharge Date Admission Date: July 28, 2023 Subjective Patient is seen and examined at bedside No complaints Hematuria much improved Leg edema improved Denies any chest pain, dyspnea, dizziness, nausea, vomiting, abdominal pain Eager to get discharged Review of Systems Review of Systems: All systems reviewed & are unremarkable except as noted in Subjective Physical Exam Physical Exam: Physical Exam: Vitals signs as noted above General Appearance:Moderately built and nourished, no apparent distress Head: normocephalic, Atraumatic Eyes: normal inspection, EOMI Neck: supple, Trachea midline Respiratory/Chest: Decreased breath sounds, basal crackles, +Pacer, No accessory muscle use Cardiovascular: Irregularly irregular, No murmur Abdomen/GI:Soft, Non tender, Bowel sounds present Extremities/Musculoskeletal:normal inspection,+ B/L LE edema Neurologic/Psych:AAOX3, grossly no focal neurological deficits,+ hearing impairment Skin: normal color, warm Results & Data Results & Data Vital Signs (Past 12 Hours) Vital Signs Temp Pulse Pulse Resp BP Pulse Ox O2 Del Method 08/02/23 15:47 36.4 C L 80 20 97/50 L 97 Room Air 08/02/23 15:00 95 H 08/02/23 11:27 37.0 C 75 19 126/74 97 Room Air 08/02/23 08:07 36.7 C 81 19 108/60 95 Room Air 08/02/23 07:11 79 Laboratory Results Short CBC 08/02/23 Range/Units 06:03 WBC 6.10 (4.8-10.8) K/ul Hgb 13.8 L (14.0-18.0) g/dl Hct 41.7 L (42.0-52.0) % Plt Count 100 L (130-400) K/uL BMP 08/02/23 06:03 Sodium 139 Potassium 4.0 Chloride 99 Carbon Dioxide 35 H BUN 36 H Creatinine 1.46 H Glucose 98 Calcium 8.8 (1) Acute exacerbation of CHF (congestive heart failure) Heart failure type: unspecified Qualified Code(s): I50.9 - Heart failure, unspecified
--- NOTE | 2023-08-02 17:00 | Cardiology Progress Note ---
Date of Service August 02, 2023 Assessment & Plan (1) Acute exacerbation of CHF (congestive heart failure): (2) Bilateral edema of lower extremity: (3) HTN (hypertension): (4) Pacemaker: (5) Chronic atrial fibrillation: (6) Presence of Watchman left atrial appendage closure device: Plan Edema improved with mildly elevated creatinine today. Recommend discontinuation of IV furosemide. Transition to torsemide 20 mg daily. Follow daily weight, fluid balance, GFR, and electrolytes. Continue other medications including aspirin, carvedilol, and lisinopril as ordered. Telemetry reveals chronic atrial fibrillation with fair rate control. Patient is not chronically anticoagulated with Watchman device in place. Continue low- dose aspirin. Admission and Anticipated Discharge Date Admission Date: July 28, 2023 Subjective Patient seen examined the bedside. Fluid balance -3 L over the past 24 hours. Creatinine trending upward. Edema improved. Rate controlled atrial fibrillation on telemetry. Review of Systems Review of Systems: All systems reviewed & are unremarkable except as noted in Subjective Physical Exam Constitutional: well nourished; no acute distress Respiratory: no respiratory distress and no labored breathing Auscultation: + rales (Left base); no rhonchi and no wheezes Cardiovascular: Rate/Rhythm: + irregularly irregular Heart Sounds: normal S1 and normal S2; no murmur Vessels: radial pulses present; no JVD Extremities: + edema (Trace to mild bilateral lower extremity edema) Gastrointestinal (Abdomen): Inspection/Auscultation: normal bowel sounds; abdomen not distended Percussion/Palpation: abdomen soft; abdomen nontender, no guarding and abdomen not rigid Neurologic: CN's II-XI intact bilaterally and moves all extremities; no focal motor deficits Psychiatric: A+Ox3, euthymic affect Results & Data Vital Signs (Past 12 Hours) Vital Signs Temp Pulse Pulse Resp BP Pulse Ox O2 Del Method 08/02/23 15:47 36.4 C L 80 20 97/50 L 97 Room Air 08/02/23 15:00 95 H 08/02/23 11:27 37.0 C 75 19 126/74 97 Room Air 08/02/23 08:07 36.7 C 81 19 108/60 95 Room Air 08/02/23 07:11 79 Laboratory Results CBC 08/02/23 Range/Units 06:03 WBC 6.10 (4.8-10.8) K/ul RBC 4.62 L (4.70-6.10) M/uL Hgb 13.8 L (14.0-18.0) g/dl Hct 41.7 L (42.0-52.0) % Plt Count 100 L (130-400) K/uL Comprehensive Metabolic Panel 08/02/23 Range/Units 06:03 Sodium 139 (136-145) mmol/L Potassium 4.0 (3.5-5.1) mmol/L Chloride 99 (98-107) mmol/L Carbon Dioxide 35 H (21-32) mmol/L BUN 36 H (6-23) mg/dl Creatinine 1.46 H (0.6-1.4) mg/dl Glucose 98 (70-99(Fasting)) mg/dl Calcium 8.8 (8.6-10.3) mg/dl Intake and Output 08/02/23 08/02/23 08/02/23 06:59 14:59 22:59 Intake Total 480 / 480 Output Total 650 / 2975 1600 / 1600 Balance -650 / -2735 -1120 / -1120 Intake: Oral 480 / 480 Output: Urine Amount (Catheter) 650 / 2975 1600 / 1600 Corral/Indwelling 650 / 2975 1600 / 1600 Other: Weight 80.5 kg Weight Measurement Method Standing Scale Patient Weight 08/03/23 06:59 Weight 80.5 kg (1) Acute exacerbation of CHF (congestive heart failure) Heart failure type: unspecified Qualified Code(s): I50.9 - Heart failure, unspecified (3) HTN (hypertension) Hypertension type: primary hypertension Qualified Code(s): I10 - Essential (primary) hypertension
[2023-08-03 06:53] LABS: BUN Creatinine Ratio 30.8 (10-20); Calcium 9.3 mg/dl (8.6-10.3); Creatinine Clr Calc Pharmacy 42.1 ml/min; Est GFR (African American) 58.5 ml/min; Est GFR (Non-African American) 50.5 ml/min; Magnesium 2.3 mg/dl (1.7-2.4); Potassium 4.4 mmol/L (3.5-5.1)
[2023-08-03] MEDS: carvediloL 12.5 MG TAB PO SCH (08:11)
[2023-08-03] MEDS: ASPIRIN 81 MG ECTAB PO SCH (08:12)
[2023-08-03] MEDS: POTASSIUM CHLORIDE CRTAB 20 MEQ TABCR PO SCH (08:12)
[2023-08-03] MEDS ORDERED: TORSEMIDE 10 MG TAB PO SCH (09:00)
--- NOTE | 2023-08-03 09:53 | CT Scan Report ---
CT chest diagnostic wo con CT DOSE: 452.63 mGy.cm HISTORY: Abnormal chest x-ray. Follow-up Paratracheal Opacity TECHNIQUE: Multiaxial CT images of the chest were performed without contrast. A dose lowering techni que was utilized adhering to the principles of ALARA. COMPARISON: Chest 07/31/2023. 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 No lymphadenopathy within the chest. There is a normal caliber thoracic aorta with mild calcified plaque. The heart is mildly enlar ged. There is a trace pericardial effusion. There is a left-sided single lead pacemaker noted. Normal caliber esophagus. Limited views of the upper abdomen demonstrate a normal liver, spleen, and adrena l glands. Small bilateral pleural effusions, left greater than right. Occluded device noted within th e left atrium. No acute fractures within the chest. Degenerative changes within the bilateral shoulde rs. No pneumothorax. The central airways are patent. Small areas of consolidation within the lower lo bes posteriorly favor compressive atelectasis from the pleural effusions. A pneumonia would be diffic ult to exclude but considered less likely. Patchy groundglass density within the superior segment of the right lower lobe is likely due to atelectasis or scarring from the adjacent thoracic spine osteop hytes. No evidence for pulmonary edema. IMPRESSION: 1. 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 2. No lymphadenopathy within the chest. 3. Mild cardiomegaly and a trace pericardial effusion. 4. Small bilateral pleural effusions with bibasilar densities. This favors compressive atelectasis fr om the pleural effusions. ACT 112: Negative or not required by law. Electronically signed by: Fernando Garcia M.D. 08/03/2023 9:52 AM
--- NOTE | 2023-08-03 13:37 | Hospitalist Progress Note ---
Date of Service August 03, 2023 Assessment & Plan (1) Acute exacerbation of CHF (congestive heart failure): (2) Pacemaker: (3) Elevated brain natriuretic peptide (BNP) level: (4) Bilateral edema of lower extremity: Plan: Acute on chronic CHF with preserved EF --CXR:Cardiomegaly with mild pulmonary vascular congestion and bilateral pleural effusions. Left basilar densities favor compressive atelectasis from the pleural effusion. A pneumonia could also have a similar appearance in the appropriate clinical setting. Abnormal left paratracheal lobular density. This favors a substernal thyroid goiter. However, in the absence of prior studies, a follow-up nonemergent chest CT is recommended for further evaluation. --ECHO: Moderate concentric LVH. No regional wall motion abnormality. EF 55%. Left atrium is severely dilated. Right atrium is moderately dilated. Aortic valve sclerosis moderate, without significant stenosis. Mild tricuspid regurgitation. Pulmonary artery pressure 41 mmHg. Moderate to large left pleural effusion. --BNP 349 --S/P Thoracentesis --Pacemaker interrogated. 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 No lymphadenopathy within the chest. Mild cardiomegaly and a trace pericardial effusion. Small bilateral pleural effusions with bibasilar d ensities. This favors compressive atelectasis from the pleural effusions. -- Consider following with vascular surgery as outpatient Hematuria Likely due to traumatic catheter Monitor H&H Appreciate urology input Follow-up with urology as outpatient for cystoscopy as outpatient Hb Stable Discontinue Corral, voiding trial today Mild troponin elevation Likely demand ischemia secondary to CHF Pancytopenia Consider further evaluation as outpatient Monitor CBC Prediabetes HbA1c 6.2 Permanent atrial fibrillation s/p Watchman Continue carvedilol, aspirin 81 mg daily H/O Inguinal hernia repair S/P x 3 separate surgeries DVT Px: SCDs Re:Hematuria, Thrombocytopenia CODE STATUS: FULL CODE Disposition Home Admission and Anticipated Discharge Date Admission Date: July 28, 2023 Subjective Patient is seen and examined at bedside States feeling well Discussed with cardiology and urology today Volume status much improved Denies any chest pain, dyspnea, dizziness, nausea, vomiting, abdominal pain Eager to get discharged Plan to discontinue Corral catheter today Review of Systems Review of Systems: All systems reviewed & are unremarkable except as noted in Subjective Physical Exam Physical Exam: Physical Exam: Vitals signs as noted above General Appearance:Moderately built and nourished, no apparent distress Head: normocephalic, Atraumatic Eyes: normal inspection, EOMI Neck: supple, Trachea midline Respiratory/Chest: Decreased breath sounds, basal crackles, +Pacer, No accessory muscle use Cardiovascular: Irregularly irregular, No murmur Abdomen/GI:Soft, Non tender, Bowel sounds present Extremities/Musculoskeletal:normal inspection,+ B/L LE edema Neurologic/Psych:AAOX3, grossly no focal neurological deficits,+ hearing impairment Skin: normal color, warm Results & Data Results & Data Vital Signs (Past 12 Hours) Vital Signs Temp Pulse Pulse Resp BP Pulse Ox O2 Del Method 08/03/23 11:13 36.4 C L 83 19 106/71 96 Room Air 08/03/23 09:48 82 08/03/23 08:09 82 18 99/55 L 93 Room Air 08/03/23 03:53 37.0 C 71 20 102/59 L 91 Room Air Laboratory Results BMP 08/03/23 06:08 Sodium 139 Potassium 4.4 Chloride 99 Carbon Dioxide 36 H BUN 41 H Creatinine 1.33 Glucose 107 H Calcium 9.3 (1) Acute exacerbation of CHF (congestive heart failure) Heart failure type: unspecified Qualified Code(s): I50.9 - Heart failure, unspecified
--- NOTE | 2023-08-03 13:48 | Discharge Summary ---
Date of Service August 03, 2023 Admission HPI Per Admitting Provider This is a 77-year-old male with PMHx of CHF, s/p pacemaker insertion 10 years ago, Watchman device insertion May 2022, and HTN who presents to the hospital with complaints of progressive edema in BLE, as well as increased shortness of breath in the past month. He reports previously weight 172 lbs about 3 months ago, and now is right over 200 lbs. He has been compliant with lasix 40 mg daily along with other medications. He states that his legs are significantly swollen up past his knees. He also notes scrotal swelling, and mentions inguinal hernia repair x 3, twice with mesh insertion, and his last surgery was about 2 years ago. He feels intestine again is into the scrotal region, nonpainful, and states he can push it up into abdomen but then falls back down into scrotal sack again. His who is present at bedside supports the history and notes that he seems significantly bloated in his abdomen as well. notes he is eating small amounts at meals and just isn't very hungry. He is unable to take even 10 steps without becoming significantly winded. Denies any chest pain, heaviness, tightness or palpitations. Denies any recent sick contacts. He has previously followed with Dr. Newsome from [facility] in [place], last seen in his clinic about 1 year ago and has a follow-up appointment in the beginning of August this year. He however is looking to switch over to [facility] cardiology as they had a family member who works in the office and is referring him. 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 Denies any smoking history, alcohol use or illicit drug use. Admission Exam Per Admitting Provider General: awake, alert, no apparent distress, elderly white male Head: Normocephalic, atraumatic ENT: PERRL, EOMI, no pharyngeal exudate, mucous membranes moist, + slightly hard of hearing Chest: Diminished breath sounds in left base, otherwise clear throughout on room air Cardiac: Regular rate and rhythm, no murmur, no JVD, normal peripheral pulses, good capillary refill Abdominal: NABS x 4 quadrants, soft, + edema over abdominal sides/hip region, + slightly distended, nontender to palpation, no rebound or guarding Extremities: 3+ significant peripheral edema up to hips, no erythema, calfs nontender to palpation Psych: Normal mood and affect Neuro: AAO x 3, strength intact bilaterally and rated 5/5, no motor deficits, speech is clear, no peripheral sensory deficits Principal Diagnosis Acute on chronic CHF with preserved EF Calcified proximal left subclavian artery aneurysm Hematuria Thrombocytopenia Discharge Data Allergies Allergy/AdvReac Type Severity Reaction Status Date / Time Penicillins AdvReac Unknown Verified 07/28/23 10:46 Consultations 07/28/23 12:11 ED Decision to Admit Stat 07/28/23 13:20 Consult Cardiology Routine 07/28/23 13:29 HIM [Consult Health Information Management] Stat 07/29/23 12:27 Consult Urology Routine Procedures Performed Laboratory Results WBC 6.10 K/ul (4.8-10.8) 08/02/23 06:03 RBC 4.62 M/uL (4.70-6.10) L 08/02/23 06:03 Hgb 13.8 g/dl (14.0-18.0) L 08/02/23 06:03 Hct 41.7 % (42.0-52.0) L 08/02/23 06:03 MCV 90.3 fL (80.0-100.0) 08/02/23 06:03 MCH 29.9 pg (25.0-34.0) 08/02/23 06:03 MCHC 33.1 g/dL (32.0-36.0) 08/02/23 06:03 RDW Std Deviation 52.2 fL (36.4-46.3) H 08/02/23 06:03 RDW Coeff of Ervin 15.8 % (11.5-14.5) H 08/02/23 06:03 Plt Count 100 K/uL (130-400) L 08/02/23 06:03 MPV 11.7 fL (9.4-12.4) 08/02/23 06:03 Immature Gran % (Auto) 0.3 % 07/28/23 09:58 Neut % (Auto) 75.0 % 07/28/23 09:58 Lymph % (Auto) 15.1 % 07/28/23 09:58 [place] % (Auto) 7.5 % 07/28/23 09:58 Eos % (Auto) 1.8 % 07/28/23 09:58 Baso % (Auto) 0.3 % 07/28/23 09:58 Neut # (Auto) 2.49 K/uL (1.40-6.50) 07/28/23 09:58 Lymph # (Auto) 0.50 K/uL (1.20-3.40) L 07/28/23 09:58 [place] # (Auto) 0.25 K/uL (0.11-0.59) 07/28/23 09:58 Eos # (Auto) 0.06 K/uL (0.00-0.50) 07/28/23 09:58 Baso # (Auto) 0.01 K/uL (0.00-0.20) 07/28/23 09:58 Immature Gran # (Auto) 0.01 K/uL (0.01-0.20) 07/28/23 09:58 Platelet Estimate Decreased (Normal) L 07/28/23 09:58 PT 13.0 Seconds (9.0-12.0) H 07/28/23 09:58 INR 1.2 (0.9-1.1) H 07/28/23 09:58 VBG pH 7.37 (7.36-7.41) 07/28/23 10:00 VBG pCO2 58 mmHg (38-50) H 07/28/23 10:00 VBG pO2 < 20 mmHg 07/28/23 10:00 VBG HCO3 34 mmol/L 07/28/23 10:00 VBG O2 Saturation < 60.0 % 07/28/23 10:00 VBG Base Excess 6.4 mEq/L 07/28/23 10:00 Sodium 139 mmol/L (136-145) 08/03/23 06:08 Potassium 4.4 mmol/L (3.5-5.1) 08/03/23 06:08 Chloride 99 mmol/L (98-107) 08/03/23 06:08 Carbon Dioxide 36 mmol/L (21-32) H 08/03/23 06:08 Anion Gap 4 (3-11) 08/03/23 06:08 BUN 41 mg/dl (6-23) H 08/03/23 06:08 Creatinine 1.33 mg/dl (0.6-1.4) 08/03/23 06:08 Est Cr Clr Drug Dosing 42.1 ml/min 08/03/23 06:08 Est GFR ( Amer) 58.5 ml/min 08/03/23 06:08 Est GFR (Non-Af Amer) 50.5 ml/min 08/03/23 06:08 BUN/Creatinine Ratio 30.8 (10-20) H 08/03/23 06:08 Glucose 107 mg/dl (70-99(Fasting)) H 08/03/23 06:08 Estimat Average Glucose 131 mg/dl 07/29/23 05:19 Hemoglobin A1c 6.2 % (4.5-5.6) H 07/29/23 05:19 Calcium 9.3 mg/dl (8.6-10.3) 08/03/23 06:08 Magnesium 2.3 mg/dl (1.7-2.4) 08/03/23 06:08 Total Bilirubin 2.2 mg/dl (0.2-1.0) H 07/30/23 05:56 Direct Bilirubin 1.0 mg/dl (0-0.2) H 07/30/23 05:56 AST 17 U/L (13-39) 07/30/23 05:56 ALT 11 U/L (7-52) 07/30/23 05:56 Alkaline Phosphatase 169 U/L (34-104) H 07/30/23 05:56 Lactate Dehydrogenase 194 U/L (86-244) 07/29/23 15:04 Troponin I High Sens 31.4 pg/ml (0-20) H 07/28/23 11:46 B-Natriuretic Peptide 349 pg/ml (0-100) H 07/28/23 09:58 Total Protein 6.0 gm/dl (6.0-8.3) 07/30/23 05:56 Albumin 3.4 gm/dl (3.4-5.0) 07/30/23 05:56 Globulin 2.7 gm/dl (2.5-4.0) 07/28/23 10:00 Albumin/Globulin Ratio 1.5 (0.9-2) 07/28/23 10:00 Triglycerides 67 mg/dl (0-150) 07/29/23 05:19 Cholesterol 87 mg/dl (0-200) 07/29/23 05:19 LDL Cholesterol, Calc 44 mg/dl 07/29/23 05:19 VLDL Cholesterol, Calc 13 mg/dl (0-30) 07/29/23 05:19 HDL Cholesterol 30 mg/dl 07/29/23 05:19 Cholesterol/HDL Ratio 2.9 (0-5) 07/29/23 05:19 TSH 2.283 uIu/ml (0.300-4.500) 07/30/23 05:56 Urine Color Yellow 07/28/23 10:00 Urine Appearance Clear (Clear) 07/28/23 10:00 Urine pH 7.5 (4.5-7.5) 07/28/23 10:00 Ur Specific [place] 1.009 (1.000-1.030) 07/28/23 10:00 Urine Protein 2+ (Negative) H 07/28/23 10:00 Urine Glucose (UA) Negative (Negative) 07/28/23 10:00 Urine Ketones Negative (Negative) 07/28/23 10:00 Urine Blood Trace (Negative) H 07/28/23 10:00 Urine Nitrite Negative (Negative) 07/28/23 10:00 Urine Bilirubin Negative (Negative) 07/28/23 10:00 Urine Urobilinogen Negative (Negative) 07/28/23 10:00 Ur Leukocyte Esterase Negative (Negative) 07/28/23 10:00 Urine WBC (Auto) 1-5 /hpf (0-5) 07/28/23 10:00 Urine RBC (Auto) 0-4 /hpf (0-4) 07/28/23 10:00 U Hyaline Cast (Auto) 0 /lpf (0-5) 07/28/23 10:00 U Epithel Cells (Auto) 10-20 /lpf (0-5) H 07/28/23 10:00 Urine Bacteria (Auto) Negative (Negative) 07/28/23 10:00 Fluid Neutrophils % 5 % 07/29/23 14:00 Fluid Lymphocytes % 31 % 07/29/23 14:00 Fluid Meso/Macro/[place] % 64 % 07/29/23 14:00 Fluid Comment 07/29/23 14:00 Pleural Fluid Source Left Lung 07/29/23 14:00 Pleural Color Yellow 07/29/23 14:00 Pleural Appearance Clear 07/29/23 14:00 Pleural WBC (Auto) 347 /uL 07/29/23 14:00 Pleural RBC (Auto) < 2000 /uL 07/29/23 14:00 Pleural Total Protein < 3.0 gm/dl 07/29/23 14:00 Pleural LDH 70 U/L 07/29/23 14:00 Pleural Glucose 142 mg/dl 07/29/23 14:00 Pleural Amylase 20 U/L 07/29/23 14:00 Pleural Triglycerides 14 mg/dL 07/29/23 14:00 Pleural Triglycerides Cancelled 07/29/23 14:00 SARS-CoV-2 (PCR) NEGATIVE (Negative) 07/28/23 10:00 Impressions Thoracentesis/Paracentesis US 07/29/23 09:37 Ultrasound-guided thoracentesis INDICATION: Large left pleural effusion PROCEDURE: Procedure and risks were explained. Informed consent was obtained. A final timeout was completed. The left posterior thorax was prepped and draped in sterile fashion. 1% buffered lidocaine was utilized for skin anesthesia. Utilizing ultrasound guidance, a 5 Tajik safety centesis catheter was advanced into the left pleural effusion. Ultrasound images were obtained. 900 mL of pleural fluid was removed and sent to lab for analysis. The procedure was stopped secondary to pleuritic pain. The patient tolerated the procedure otherwise. A chest x-ray will be obtained post procedure. Vital signs will be monitored on the floor. IMPRESSION: Left thoracentesis as above. Performed, dictated, and signed by Shelton Collier PA-C; to be co-signed by Dr. Hesham Milian. Electronically signed by: Hesham Milian M.D. 07/29/2023 5:05 PM Thyroid Ultrasound 07/29/23 14:19 THYROID ULTRASOUND HISTORY: Abnormal chest x-ray. 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 FINDINGS: Right lobe: 42 x 12 x 12 mm. No nodules. Left lobe: 47 x 13 x 11 mm. No evidence for substernal extension. No nodules. Isthmus: 2 mm in thickness. No nodules. IMPRESSION: Normal thyroid ultrasound. No evidence for a substernal thyroid goiter. ACT 112: Negative or not required by law. Electronically signed by: Fernando Garcia M.D. 07/29/2023 2:31 PM Chest X-Ray 07/31/23 07:04 TWO VIEW CHEST CLINICAL HISTORY: Congestive heart failure status post thoracentesis. FINDINGS: AP and lateral chest radiographs are compared to study dated 07/29/2023. A single lead cardiac pacemaker is unchanged in position and partiall y obscures the left upper lung. An atrial septal closure device is suspected. A lobular left paratracheal density is unchanged. The heart is enlarged and noting atherosclerotic calcification of the thoracic aorta. There is mild pulmonary vascular congestion. There are small pleural effusions with dependent consolidation. There is no pneumothorax. The bony thorax appears intact. IMPRESSION: 1. No pneumothorax is identified status post thoracentesis. 2. Cardiomegaly and cardiac pacemaker with mild pulmonary vascular congestion. 3. Small pleural effusions with dependent atelectasis. 4. A left paratracheal density is indeterminant and unchanged. ACT 112: Negative or not required by law. Electronically signed by: Omid Echeverria M.D. 07/31/2023 9:[address] 08/03/23 07:59 CT chest diagnostic wo con CT DOSE: 452.63 mGy.cm HISTORY: Abnormal chest x-ray. Follow-up Paratracheal Opacity TECHNIQUE: Multiaxial CT images of the chest were performed without contrast. A dose lowering technique was utilized adhering to the principles of ALARA. COMPARISON: Chest 07/31/2023. 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 No lymphadenopathy within the chest. There is a normal caliber thoracic aorta with mild calcified plaque. The heart is mildly enlarged. There is a trace pericardial effusion. There is a left-sided single lead pacemaker noted. Normal caliber esophagus. Limited views of the upper abdomen de monstrate a normal liver, spleen, and adrenal glands. Small bilateral pleural effusions, left greater than right. Occluded device noted within the left atrium. No acute fractures within the chest. Degenerative changes within the bilateral shoulders. No pneumothorax. The central airways are patent. Small areas of consolidation within the lower lobes posteriorly favor compressive atelectasis from the pleural effusions. A pneumonia would be difficult to exclude but considered less likely. Patchy groundglass density within the superior segment of the right lower lobe is likely due to atelectasis or scarring from the adjacent thoracic spine osteophytes. No evidence for pulmonary edema. IMPRESSION: 1. 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 2. No lymphadenopathy within the chest. 3. Mild cardiomegaly and a trace pericardial effusion. 4. Small bilateral pleural effusions with bibasilar densities. This favors compressive atelectasis from the pleural effusions. ACT 112: Negative or not required by law. Electronically signed by: Fernando Garcia M.D. 08/03/2023 9:52 AM Ordered Studies 07/29/23 09:37 IR thoracentesis wo tube US Routine 07/29/23 14:19 US thyroid Routine 08/03/23 07:59 CT chest diagnostic wo con Urgent Hospital Course (1) Acute exacerbation of CHF (congestive heart failure): (2) Pacemaker: (3) Elevated brain natriuretic peptide (BNP) level: (4) Bilateral edema of lower extremity: Acute on chronic CHF with preserved EF --CXR:Cardiomegaly with mild pulmonary vascular congestion and bilateral pleural effusions. Left basilar densities favor compressive atelectasis from the pleural effusion. A pneumonia could also have a similar appearance in the appropriate clinical setting. Abnormal left paratracheal lobular density. This favors a substernal thyroid goiter. However, in the absence of prior studies, a follow-up nonemergent chest CT is recommended for further evaluation. --ECHO: Moderate concentric LVH. No regional wall motion abnormality. EF 55%. Left atrium is severely dilated. Right atrium is moderately dilated. Aortic valve sclerosis moderate, without significant stenosis. Mild tricuspid regurgitation. Pulmonary artery pressure 41 mmHg. Moderate to large left pleural effusion. --BNP 349 --S/P Thoracentesis --Pacemaker interrogated. 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 No lymphadenopathy within the chest. Mild cardiomegaly and a trace pericardial effusion. Small bilateral pleural effusions with bibasilar densities. This favors compressive atelectasis from the pleural effusions. -- Consider following with vascular surgery as outpatient Hematuria Likely due to traumatic catheter Monitor H&H Appreciate urology input Follow-up with urology as outpatient for cystoscopy as outpatient Hb Stable Discontinue Corral, voiding trial today Mild troponin elevation Likely demand ischemia secondary to CHF Pancytopenia Consider further evaluation as outpatient Monitor CBC Prediabetes HbA1c 6.2 Permanent atrial fibrillation s/p Watchman Continue carvedilol, aspirin 81 mg daily H/O Inguinal hernia repair S/P x 3 separate surgeries DVT Px: SCDs Re:Hematuria, Thrombocytopenia CODE STATUS: FULL CODE Disposition Home Total Time Total Time Spent Total Time Spent (In Minutes): 62 minutes Discharge Plan Discharge Items Patient Disposition: Home - Self-Care Reason For Visit: CHF EXACERBATION Discharge Diagnosis: Acute on chronic CHF with preserved EF Calcified proximal left subclavian artery aneurysm Hematuria Thrombocytopenia Activity: Per Instructions section Exercise/Sports: Wait until after follow-up appointment Non-emergency contact: Primary Care Provider, Surgeon, Wood Fence Erector and Ur ologist Call non-emergency contact if: you have any medication questions, your symptoms worsen, your pain is concerning for you and you have a fever Follow-up/Referrals: Jb Romero DO [Primary Care Provider] - Diet: Heart Healthy Fluids: 2000ml (8 cups) Addtl Attending Provider Instructions: Follow-up with your primary care physician Dr. Romero in 1 week Follow-up with your hvac service technician Dr. Frost in 3 to 4 weeks Follow-up with vascular surgery for further evaluation of left subclavian artery aneurysm which was incidentally noted on your CT scan Follow-up with your urologist Dr. Dunlap for outpatient cystoscopy for evaluation of blood in urine as advised. -- You were noted to have low platelets while you are hospitalized. Discuss with your physician for further testing as outpatient. -- Monitor your blood pressure regularly at home. Discuss with your physician for further medication adjustments as needed. Seek immediate medical attention if your symptoms reoccur or worsen Please take all medications as instructed on discharge list below. Please call if you have any questions or problems. You can reach a [facility] hospitalist on duty at [facility] 24 hours a day by calling [phone] Call your Primary Care doctor if any of the following symptoms or problems start or get worse: * Shortness of breath or difficulty breathing * Wake up at night short of breath * Chest pain * Cough * Swelling of your hands, feet, or legs * More fatigued or tired with your normal activity * Palpitations - sudden fast heart beats WEIGHT * Weigh yourself every morning after using the bathroom. * Use the same scale. * Wear the same amount of clothing. * Write your weight down on a chart. * Call your Primary Care doctor if you gain more than 2-3 pounds in 1-2 days. MEDICATIONS * Use this discharge instruction sheet for medication instructions. * Take your medications at the time your doctor ordered. * Do not skip a dose of your medicines. * If you miss a dose of medicine, take it as soon as possible, but DO NOT DOUBLE A DOSE. * Read your medicine information when you get home. * Know all of the side effects of your medicine. If in doubt, ask your pharmacist * Call your Primary Care doctor's office if you have any side effects. * Be sure all of your doctors know what medicine and herbs you take (including cold, flu, and herbal medicine). Take the following with you to your follow-up doctor appointments: * Weight Chart * Medication List * List of questions Do not drink excessive alcohol, beer or wine. Pending Studies at Discharge: No Stand-Alone Forms: My [facility], Smoking Cessation Medications and DC Order Prescriptions: New torsemide 10 mg Tablet 20 mg PO QAM Qty: 30 1RF potassium chloride 10 mEq capsule, extended release 10 meq PO QAM Qty: 30 0RF Continued carvedilol 12.5 mg tablet 12.5 mg PO BID aspirin 81 mg Tablet 81 mg PO QAM lisinopril 2.5 mg Tablet 2.5 mg PO QAM glucosamine sulfate [Glucosamine] 750 mg Tablet 0 mg PO QAM Rx Instructions: Patient's spouse doesn't remember strength of medication at this time. Discontinued furosemide 40 mg tablet 40 mg PO QAM Discharge Orders: Discharge Order (Routine); Ordered 08/03/23 Ordered By: Dima Becerra/Other Patient Handouts: Prediabetes, 5 Steps for Eating Healthier Admission Data Admit Date/Time: 07/28/23 12:37 Attending Provider: Dima Rios Admit Provider: Kanika Bañuelos Primary Care Provider: Jb Romero Other Providers: Kanika Bañuelos; Marcelo Watson; Artis Jean; Robert Reyes; Rohan Florentino; Shantel Amanda; Dg Collier; Mary Dumont; Audrey Zimmerman; Jeferson Dunlap; Emely Hernandez; Gavino Dimas; Shane Ruggiero
--- NOTE | 2023-08-03 14:26 | Cardiology Progress Note ---
Date of Service August 03, 2023 Assessment & Plan (1) Acute exacerbation of CHF (congestive heart failure): (2) Bilateral edema of lower extremity: (3) HTN (hypertension): (4) Pacemaker: (5) Chronic atrial fibrillation: (6) Presence of Watchman left atrial appendage closure device: Plan IV furosemide discontinued. Recommend torsemide 20 mg daily. Diuretic protocol reviewed: Take an additional 20 mg of oral torsemide if weight increases more than 2 pounds in a 48-hour period, or 5 pounds in 1 week. Reviewed importance of sodium restriction as well as restricting fluid intake to approximately 1500 cc daily. Continue other medications including aspirin, carvedilol, and lisinopril as ordered. Telemetry reveals chronic atrial fibrillation with fair rate control. Patient is not chronically anticoagulated with Watchman device in place. Continue low- dose aspirin. Close outpatient cardiology follow-up in 1 week. Admission and Anticipated Discharge Date Admission Date: July 28, 2023 Subjective Patient seen and examined at the bedside. Significant weight loss (30 pounds) since admission. Transition to oral torsemide. Denies chest pain or shortness of breath. Voices concern regarding compliance with diuretic therapy in the outpatient setting. Admits to frequent noncompliance due to urinary frequency. Also voices frustration with limiting daily fluid intake. present at bedside. She offers no additional concerns/complaints. Telemetry reveals rate controlled atrial fibrillation with demand ventricular pacing. Review of Systems Review of Systems: All systems reviewed & are unremarkable except as noted in Subjective Physical Exam Constitutional: well nourished; no acute distress Respiratory: no respiratory distress and no labored breathing Auscultation: + rales (Left base); no rhonchi and no wheezes Cardiovascular: Rate/Rhythm: + irregularly irregular Heart Sounds: normal S1 and normal S2; no murmur Vessels: radial pulses present; no JVD Extremities: + edema (Trace to mild bilateral lower extremity edema) Gastrointestinal (Abdomen): Inspection/Auscultation: normal bowel sounds; abdomen not distended Percussion/Palpation: abdomen soft; abdomen nontender, no guarding and abdomen not rigid Neurologic: CN's II-XI intact bilaterally and moves all extremities; no focal motor deficits Psychiatric: A+Ox3, euthymic affect Results & Data Vital Signs (Past 12 Hours) Vital Signs Temp Pulse Pulse Resp BP Pulse Ox O2 Del Method 08/03/23 14:18 36.4 C L 83 19 106/71 96 08/03/23 11:13 36.4 C L 83 19 106/71 96 Room Air 08/03/23 09:48 82 08/03/23 08:09 82 18 99/55 L 93 Room Air 08/03/23 03:53 37.0 C 71 20 102/59 L 91 Room Air Laboratory Results Comprehensive Metabolic Panel 08/03/23 Range/Units 06:08 Sodium 139 (136-145) mmol/L Potassium 4.4 (3.5-5.1) mmol/L Chloride 99 (98-107) mmol/L Carbon Dioxide 36 H (21-32) mmol/L BUN 41 H (6-23) mg/dl Creatinine 1.33 (0.6-1.4) mg/dl Glucose 107 H (70-99(Fasting)) mg/dl Calcium 9.3 (8.6-10.3) mg/dl Intake and Output 08/02/23 08/03/23 08/03/23 22:59 06:59 14:59 Intake Total 240 / 920 200 / 920 240 / 240 Output Total 1200 / 3400 600 / 3400 800 / 800 Balance -960 / -2480 -400 / -2480 -560 / -560 Intake: Oral 240 / 920 200 / 920 240 / 240 Output: Urine Amount (Catheter) 1200 / 3400 600 / 3400 800 / 800 Corral/Indwelling 1200 / 3400 600 / 3400 800 / 800 Other: Weight 77.7 kg 77.7 kg Weight Measurement Method Standing Scale Patient Weight 08/04/23 06:59 Weight 77.7 kg (1) Acute exacerbation of CHF (congestive heart failure) Heart failure type: unspecified Qualified Code(s): I50.9 - Heart failure, unspecified (3) HTN (hypertension) Hypertension type: primary hypertension Qualified Code(s): I10 - Essential (primary) hypertension
[2023-08-04 11:07] LABS: Pleural Fluid, Albumin 1.7 g/dL
== END 2023-08-03 14:49 | disposition home or self-care (01) | DRG 291 ==
LOC: ED 09:37 → SUATTDRO 12:37 → 2E 12:37

== ENCOUNTER 2023-09-17 12:44 | Inpatient (IN) ==
--- NOTE | 2023-09-17 13:38 | XRay Report ---
XR chest 1V not portable CLINICAL HISTORY: Fluid Overload, CHF COMPARISON STUDY: Chest radiograph July 31, 2023. Chest CT August 03, 2023. FINDINGS: There is no pneumothorax. A skin fold projects over the left chest. Small left pleural effu pawan is unchanged. There is no consolidation to suggest pneumonia. Left subclavian pacer and left atr ial appendage device are place. Cardiomegaly is unchanged. There is pulmonary vascular congestion wit hout overt pulmonary edema. IMPRESSION: 1. Cardiomegaly with pulmonary vascular congestion. 2. No change in a small left pleural effusion. ACT 112: Negative or not required by law. Electronically signed by: Hesham Milian M.D. 09/17/2023 1:37 PM
[2023-09-17 14:22] LABS: Alanine Aminotransferase 18 U/L (7-52); Albumin Globulin Ratio 1.1 (0.9-2); Albumin Level 3.3 gm/dl (3.4-5.0); Alkaline Phosphatase 174 U/L (34-104); Anion Gap 8 (3-11); Aspartate Aminotransferase 33 U/L (13-39); BUN Creatinine Ratio 30.4 (10-20); Bilirubin,Total 2.4 mg/dl (0.2-1.0); Blood Urea Nitrogen 58 mg/dl (6-23); Calcium 8.5 mg/dl (8.6-10.3); Carbon Dioxide 27 mmol/L (21-32); Chloride 94 mmol/L (98-107); Est GFR (African American) 37.5 ml/min; Est GFR (Non-African American) 32.4 ml/min; Globulin 3.1 gm/dl (2.5-4.0); Glucose 132 mg/dl (70-99(Fasting)); Potassium 4.1 mmol/L (3.5-5.1); Sodium 129 mmol/L (136-145); Total Protein 6.4 gm/dl (6.0-8.3)
[2023-09-17 14:32] LABS: Hematocrit (blood only) 37.7 % (42.0-52.0); Hemoglobin 12.3 g/dl (14.0-18.0); Mean Corpuscular Hemoglobin 28.4 pg (25.0-34.0); Mean Corpuscular Hgb Conc 32.6 g/dL (32.0-36.0); Mean Corpuscular Volume 87.1 fL (80.0-100.0); Platelet Count 76 K/uL (130-400); RDW Coefficient of Variation 14.8 % (11.5-14.5); RDW Standard Deviation 47.4 fL (36.4-46.3); Red Blood Count 4.33 M/uL (4.70-6.10); White Blood Count 8.65 K/ul (4.8-10.8)
[2023-09-17 14:34] LABS: Basophils # (auto) 0.02 K/uL (0.00-0.20); Basophils % (auto) 0.2 %; Immature Granulocytes # (auto) 0.04 K/uL (0.01-0.20); Immature Granulocytes % (auto) 0.5 %; Lymphocytes # (auto) 0.22 K/uL (1.20-3.40); Lymphocytes % (auto) 2.5 %; Monocytes # (auto) 0.41 K/uL (0.11-0.59); Monocytes % (auto) 4.7 %; Neutrophils # (auto) 7.96 K/uL (1.40-6.50); Neutrophils % (auto) 92.1 %; Platelet Estimate Decreased (Normal); Toxic Vacuolation 1+
[2023-09-17 14:53] LABS: INR 1.1 (0.9-1.1); Partial Thromboplastin Ratio 1.1; Partial Thromboplastin Time 31 Seconds (21-31); Prothrombin Time 11.8 Seconds (9.0-12.0)
[2023-09-17 15:51] LABS: Appearance Urine Cloudy (Clear); Bacteria Urine Automated 4+ (Negative); Bilirubin Urine Negative (Negative); Blood Urine 1+ (Negative); Color Urine Dark Yellow; Epithelial Cell Urine Auto 0-5 /lpf (0-5); Glucose Urine UA Negative (Negative); Ketones Urine Negative (Negative); Leukocyte Esterase Urine 3+ (Negative); Nitrite Urine Negative (Negative); Protein Urine Trace (Negative); RBC Urine Automated 0-4 /hpf (0-4); Specific Gravity Urine 1.011 (1.000-1.030); Urobilinogen Urine Negative (Negative); WBC Urine Automated >30 /hpf (0-5)
[2023-09-17 16:09] LABS: Troponin I High Sensitivity 37.9 pg/ml (0-20)
[2023-09-17 16:28] LABS: Lipase 81 U/L (11-82); Magnesium 2.2 mg/dl (1.7-2.4)
--- NOTE | 2023-09-17 16:33 | Emergency Department Note ---
History of Present Illness General Chief complaint: Illness Stated complaint: UNABLE TO WALK, SOB, DARK URINE Time Seen by Provider: 09/17/23 15:58 Source: patient and family ( at bedside) History of Present Illness Provider complaint: Fluid overload Onset (ago): week(s) 1 Associated symptoms: + shortness of breath; no chest pain, no cough, no fever/chills, no headaches or no nausea/vomiting 78-year-old male presents emergency department with his for fluid overload. reports that the patient has been having difficulty breathing and his legs been swelling up. She reports he has a history of CHF. also reports that the patient has been having difficulty passing urine. She reports when he does pass urine it is very foul-smelling and dark. No fevers. No nausea. No chest pain. Home Medications Medication Instructions Recorded Confirmed Type aspirin 81 mg tablet 81 mg PO QAM 07/28/23 09/17/23 History carvedilol 12.5 mg tablet 12.5 mg PO BID 07/28/23 09/17/23 History glucosamine sulfate 750 mg tablet 750 mg PO QAM 07/28/23 09/17/23 History potassium chloride 10 mEq 10 meq PO QAM #30 caps 08/03/23 09/17/23 Rx capsule,extended release torsemide 10 mg tablet 20 mg (2 x 10 mg) PO QAM #30 tabs 08/03/23 09/17/23 Rx Allergies Allergy/AdvReac Type Severity Reaction Status Date / Time Penicillins AdvReac Unknown Verified 07/28/23 10:46 Past Med/Surg History Medical History (Updated 09/17/23 @ 22:46 by Андрей Fuentes MD) Liver cirrhosis Pancytopenia CAD (coronary artery disease) Tachy-jessi syndrome Chronic atrial fibrillation HTN (hypertension) CHF (congestive heart failure) Surgical History S/P cardiac pacemaker procedure History of left atrial appendage closure Family History Father Heart disease Sister Heart disease Social History Smoking Status: Never smoker Second Hand Exposure: No; Do You Dip or Chew Tobacco: No; Hx Alcohol Use: Yes Alcohol type: hard liquor Hx Substance Use: No Preferred Language: Portuguese Communication Ability: Effective Glue Drier Operator Required: No Beliefs That Will Affect Care: None Current Living Situation: Spouse Current Living Situation Comment: lives at home, bathroom available on 1st floor Feels Safe at Home: Yes Assistive Devices: Glasses Physical Exam Vital Signs Vital Signs - 24 hr 09/17/23 12:47 09/17/23 15:25 09/17/23 17:08 Temperature 36.6 C Temperature Source Temporal Artery Scan Pulse Rate 97 H Pulse Rate [Apical] 90 82 Respiratory Rate 20 20 20 Respiratory Effort / Characteristics Non-Labored Non-Labored Non-Labored Respiratory Depth Normal Normal Normal Blood Pressure 103/65 Blood Pressure [Right Arm] 97/69 L 108/73 Blood Pressure Mean 77 Blood Pressure Mean [Right Arm] 78 84 Pulse Oximetry 96 96 97 Oxygen Delivery Method Room Air Room Air Room Air Sepsis Recent Fever Within 48 Hours No Sepsis New/Unexplained Change in Mental Status No Sepsis Action Taken by Nursing No Action Required 09/17/23 18:30 09/17/23 19:00 09/17/23 19:57 Temperature Temperature Source Pulse Rate 93 H Pulse Rate [Apical] 87 90 Respiratory Rate 20 20 Respiratory Effort / Characteristics Non-Labored Respiratory Depth Normal Blood Pressure Blood Pressure [Right Arm] 109/68 113/67 Blood Pressure Mean Blood Pressure Mean [Right Arm] 81 82 Pulse Oximetry 98 92 Oxygen Delivery Method Room Air Room Air Sepsis Recent Fever Within 48 Hours Sepsis New/Unexplained Change in Mental Status Sepsis Action Taken by Nursing 09/17/23 20:00 09/17/23 21:30 Temperature Temperature Source Pulse Rate Pulse Rate [Apical] 89 90 Respiratory Rate 20 20 Respiratory Effort / Characteristics Respiratory Depth Blood Pressure Blood Pressure [Right Arm] 97/68 L 112/68 Blood Pressure Mean Blood Pressure Mean [Right Arm] 77 82 Pulse Oximetry 95 96 Oxygen Delivery Method Room Air Room Air Sepsis Recent Fever Within 48 Hours Sepsis New/Unexplained Change in Mental Status Sepsis Action Taken by Nursing Physical Exam HENT: Exam performed. - Head: Normocephalic and atraumatic. EYES: Conjunctivae and EOM are normal. Right eye exhibits no discharge. Left eye exhibits no discharge. No scleral icterus. NECK: Normal range of motion. Neck supple. No JVD present. CV: Normal rate, irregular rhythm, normal heart sounds and intact distal pulses. 3+ pitting edema bilateral lower extremities. Palpable radial pulses bue. PULM/CHEST: Effort normal and breath sounds normal. No respiratory distress. No stridor. no wheezes. no rales. ABD: The abdomen is soft. There is no tenderness. NEURO: Motor and sensation grossly intact. SKIN: Skin is warm and dry. He is not diaphoretic. PSYCH: normal mood and affect. Behavior is normal. Judgment and thought content normal. Course Course 1558: The patient was evaluated in room B4. A complete history and physical exam was performed Cardiac monitoring: An order was placed for continuous cardiac monitoring. The monitor shows a rate of 90 with atrial fibrilation rhythm interpreted by me 1830: Vital signs stable. Labs show creatinine 1.91 up from 1.3-1.4. BNP elevated 233. Trope 37.9. CT of the abdomen pelvis negative for obstructing stone. Corral placed in on the patient. Urinalysis is significant for infection. Cipro ordered for the patient. Spoke with [facility] hospitalist Mariaa stated to give the patient Lasix to uli and admit to their service. Administered Medications Discontinued Medications Furosemide (Furosemide 40 Mg/4 Ml Vial) 40 mg IV ONE ONE Stop: 09/17/23 17:08 Last Admin: 09/17/23 17:11 Dose: 40 mg Documented By: AMBER Ciprofloxacin (Cipro / D5w) 400 mg in 200 mls @ 100 mls/hr IV NOW STA; Protocol Stop: 09/17/23 18:05 Last Infusion: 09/17/23 18:37 Dose: Infused Documented By: Admin: 09/17/23 16:35 Dose: 100 mls/hr Documented By: AMBER Medical Decision Making Laboratory Data Attestation: I reviewed the patient's lab results. 09/17/23 13:45 09/17/23 13:45 Lab Results 09/17/23 09/17/23 09/17/23 Range/Units 13:45 15:22 16:15 WBC 8.65 (4.8-10.8) K/ul RBC 4.33 L (4.70-6.10) M/uL Hgb 12.3 L (14.0-18.0) g/dl Hct 37.7 L (42.0-52.0) % MCV 87.1 (80.0-100.0) fL MCH 28.4 (25.0-34.0) pg MCHC 32.6 (32.0-36.0) g/dL RDW Std Deviation 47.4 H (36.4-46.3) fL RDW Coeff of Ervin 14.8 H (11.5-14.5) % Plt Count 76 L (130-400) K/uL MPV 12.0 (9.4-12.4) fL Immature Gran % (Auto) 0.5 % Neut % (Auto) 92.1 % Lymph % (Auto) 2.5 % [place] % (Auto) 4.7 % Eos % (Auto) 0.0 % Baso % (Auto) 0.2 % Neut # (Auto) 7.96 H (1.40-6.50) K/uL Lymph # (Auto) 0.22 L (1.20-3.40) K/uL [place] # (Auto) 0.41 (0.11-0.59) K/uL Eos # (Auto) 0.00 (0.00-0.50) K/uL Baso # (Auto) 0.02 (0.00-0.20) K/uL Immature Gran # (Auto) 0.04 (0.01-0.20) K/uL Toxic Vacuolation 1+ Platelet Estimate Decreased L (Normal) PT 11.8 (9.0-12.0) Seconds INR 1.1 (0.9-1.1) APTT 31 (21-31) Seconds PTT Ratio 1.1 Sodium 129 L (136-145) mmol/L Potassium 4.1 (3.5-5.1) mmol/L Chloride 94 L (98-107) mmol/L Carbon Dioxide 27 (21-32) mmol/L Anion Gap 8 (3-11) BUN 58 H (6-23) mg/dl Creatinine 1.91 H (0.6-1.4) mg/dl Est Cr Clr Drug Dosing Not Reportable Est GFR ( Amer) 37.5 ml/min Est GFR (Non-Af Amer) 32.4 ml/min BUN/Creatinine Ratio 30.4 H (10-20) Glucose 132 H (70-99(Fasting)) mg/dl Osmolality 292 (280-300) mOsm/kg Lactate 1.3 (0.4-2.0) mmol/L Calcium 8.5 L (8.6-10.3) mg/dl Magnesium 2.2 (1.7-2.4) mg/dl Total Bilirubin 2.4 H (0.2-1.0) mg/dl AST 33 (13-39) U/L ALT 18 (7-52) U/L Alkaline Phosphatase 174 H (34-104) U/L Troponin I High Sens 37.9 H (0-20) pg/ml B-Natriuretic Peptide 233 H (0-100) pg/ml Total Protein 6.4 (6.0-8.3) gm/dl Albumin 3.3 L (3.4-5.0) gm/dl Globulin 3.1 (2.5-4.0) gm/dl Albumin/Globulin Ratio 1.1 (0.9-2) Lipase 81 (11-82) U/L TSH (0.300-4.500) uIu/ml Urine Color Dark Yellow Urine Appearance Cloudy A (Clear) Urine pH 5.0 (4.5-7.5) Ur Specific [place] 1.011 (1.000-1.030) Urine Protein Trace H (Negative) Urine Glucose (UA) Negative (Negative) Urine Ketones Negative (Negative) Urine Blood 1+ H (Negative) Urine Nitrite Negative (Negative) Urine Bilirubin Negative (Negative) Urine Urobilinogen Negative (Negative) Ur Leukocyte Esterase 3+ H (Negative) Urine WBC (Auto) >30 H (0-5) /hpf Urine RBC (Auto) 0-4 (0-4) /hpf U Hyaline Cast (Auto) 5-10 H (0-5) /lpf U Epithel Cells (Auto) 0-5 (0-5) /lpf Urine Bacteria (Auto) 4+ H (Negative) Urine Osmolality 337 L (500-800) mOsm/kg Ur Random Sodium < 10 mmol/L 09/17/23 Range/Units 18:07 WBC (4.8-10.8) K/ul RBC (4.70-6.10) M/uL Hgb (14.0-18.0) g/dl Hct (42.0-52.0) % MCV (80.0-100.0) fL MCH (25.0-34.0) pg MCHC (32.0-36.0) g/dL RDW Std Deviation (36.4-46.3) fL RDW Coeff of Ervin (11.5-14.5) % Plt Count (130-400) K/uL MPV (9.4-12.4) fL Immature Gran % (Auto) % Neut % (Auto) % Lymph % (Auto) % [place] % (Auto) % Eos % (Auto) % Baso % (Auto) % Neut # (Auto) (1.40-6.50) K/uL Lymph # (Auto) (1.20-3.40) K/uL [place] # (Auto) (0.11-0.59) K/uL Eos # (Auto) (0.00-0.50) K/uL Baso # (Auto) (0.00-0.20) K/uL Immature Gran # (Auto) (0.01-0.20) K/uL Toxic Vacuolation Platelet Estimate (Normal) PT (9.0-12.0) Seconds INR (0.9-1.1) APTT (21-31) Seconds PTT Ratio Sodium (136-145) mmol/L Potassium (3.5-5.1) mmol/L Chloride (98-107) mmol/L Carbon Dioxide (21-32) mmol/L Anion Gap (3-11) BUN (6-23) mg/dl Creatinine (0.6-1.4) mg/dl Est Cr Clr Drug Dosing Est GFR ( Amer) ml/min Est GFR (Non-Af Amer) ml/min BUN/Creatinine Ratio (10-20) Glucose (70-99(Fasting)) mg/dl Osmolality (280-300) mOsm/kg Lactate (0.4-2.0) mmol/L Calcium (8.6-10.3) mg/dl Magnesium (1.7-2.4) mg/dl Total Bilirubin (0.2-1.0) mg/dl AST (13-39) U/L ALT (7-52) U/L Alkaline Phosphatase (34-104) U/L Troponin I High Sens 34.7 H (0-20) pg/ml B-Natriuretic Peptide (0-100) pg/ml Total Protein (6.0-8.3) gm/dl Albumin (3.4-5.0) gm/dl Globulin (2.5-4.0) gm/dl Albumin/Globulin Ratio (0.9-2) Lipase (11-82) U/L TSH 1.907 (0.300-4.500) uIu/ml Urine Color Urine Appearance (Clear) Urine pH (4.5-7.5) Ur Specific [place] (1.000-1.030) Urine Protein (Negative) Urine Glucose (UA) (Negative) Urine Ketones (Negative) Urine Blood (Negative) Urine Nitrite (Negative) Urine Bilirubin (Negative) Urine Urobilinogen (Negative) Ur Leukocyte Esterase (Negative) Urine WBC (Auto) (0-5) /hpf Urine RBC (Auto) (0-4) /hpf U Hyaline Cast (Auto) (0-5) /lpf U Epithel Cells (Auto) (0-5) /lpf Urine Bacteria (Auto) (Negative) Urine Osmolality (500-800) mOsm/kg Ur Random Sodium mmol/L Imaging Data Attestation: I personally reviewed and interpreted this imaging study as follows: My Impression: Chest x-ray: Cardiomegaly with cephalization Radiologist's Impression: Chest X-Ray 09/17/23 12:51 XR chest 1V not portable CLINICAL HISTORY: Fluid Overload, CHF COMPARISON STUDY: Chest radiograph July 31, 2023. Chest CT August 03, 2023. FINDINGS: There is no pneumothorax. A skin fold projects over the left chest. Small left pleural effusion is unchanged. There is no consolidation to suggest pneumonia. Left subclavian pacer and left atrial appendage device are place. Cardiomegaly is unchanged. There is pulmonary vascular congestion without overt pulmonary edema. IMPRESSION: 1. Cardiomegaly with pulmonary vascular congestion. 2. No change in a small left pleural effusion. ACT 112: Negative or not required by law. Electronically signed by: Hesham Milian M.D. 09/17/2023 1:37 PM Abdomen/Pelvis CT 09/17/23 16:05 CT OF THE ABDOMEN AND PELVIS WITHOUT CONTRAST CLINICAL HISTORY: Acute kidney injury. COMPARISON STUDY: Hepatic Doppler ultrasound August 30, 2023. TECHNIQUE: Axial images of the abdomen and pelvis were obtained without IV contrast. Images were reviewed in the axial, sagittal, and coronal planes. Automated exposure control was utilized for the study. A dose lowering technique was utilized adhering to the principles of ALARA. FINDINGS: Pacer lead is partially imaged. There is moderate cardiomegaly with a small pericardial effusion. This is unchanged since CT of July 24, 2023. Small left and trace right pleural effusions are also similar to prior exam. No renal, ureteral or bladder calculi are present. There is no hydronephrosis. Water attenuation bilateral renal lesions favor cysts. There is mild bladder wall thickening, likely chronic. The prostate is enlarged, measuring approximately 6.5 x 6.2 cm. There is mild splenomegaly. Upper abdominal collaterals are present. There is a small amount of ascites. There is body wall edema. Nodularity of the liver surface is present. No hepatic lesions are identified on unenhanced examination. There is no biliary or pancreatic ductal dilatation dictation. Portion of the sigmoid colon extends into a left inguinal hernia. There is no resultant bowel obstruction. There is colonic diverticulosis without evidence for acute diverticulitis. No lymphadenopathy is identified. There are no acute fractures. IMPRESSION: 1. No urinary calculi or hydronephrosis. Multiple renal cysts. Enlarged prostate. 2. Anasarca. Small left and trace right pleural effusions. 3. Cirrhotic liver. Evidence for portal hypertension, including mild splenomegaly, varices formation and small amount of ascites. 4. Colonic diverticulosis. No evidence for acute diverticulitis. 5. Small portion of the sigmoid colon extends into a left inguinal hernia without resultant bowel obstruction. ACT 112: Negative or not required by law. Electronically signed by: Hesham Milian M.D. 09/17/2023 4:33 PM ECG Data Attestation: I personally reviewed and interpreted this ECG as follows: Indication: + weakness Rate (beats per minute): 86 Rhythm: + atrial fibrillation ECG Intervals/blocks: + Normal QT-c ECG ST segments: + Normal ST segments Additional Comments: QRS 130 MDM Narrative 1558: The patient was evaluated in room B4. A complete history and physical exam was performed Cardiac monitoring: An order was placed for continuous cardiac monitoring. The monitor shows a rate of 90 with atrial fibrilation rhythm interpreted by me 1830: Vital signs stable. Labs show creatinine 1.91 up from 1.3-1.4. BNP elevated 233. Trope 37.9. CT of the abdomen pelvis negative for obstructing stone. Corral placed in on the patient. Urinalysis is significant for infection. Cipro ordered for the patient. Spoke with [facility] hospitalist Mariaa stated to give the patient Lasix to diurese and admit to their service. Impression & Plan Acute exacerbation of CHF (congestive heart failure), UTI (urinary tract infection), MARKO (acute kidney injury) Discharge Plan Visit Data Chief Complaint: Illness Stated Complaint: UNABLE TO WALK, SOB, DARK URINE ED Provider: Андрей Fuentes Discharge Problem: Acute exacerbation of CHF (congestive heart failure), UTI (urinary tract infection), MARKO (acute kidney injury) Patient Disposition: Admitted As Inpatient Forms Stand Alone Forms: [facility] Prescriptions Prescriptions: No Action carvedilol 12.5 mg tablet 12.5 mg PO BID aspirin 81 mg Tablet 81 mg PO QAM glucosamine sulfate 750 mg Tablet 750 mg PO QAM torsemide 10 mg Tablet 20 mg PO QAM Qty: 30 1RF potassium chloride 10 mEq capsule, extended release 10 meq PO QAM Qty: 30 0RF Referrals Referrals: Jb Romero DO [Primary Care Provider] - Discharge Problem: Acute exacerbation of CHF (congestive heart failure) Qualifiers: Heart failure type: unspecified Qualified Code(s): I50.9 - Heart failure, unspecified
[2023-09-17] MEDS: CIPROFLOXACIN / D5W 400 MG/200 ML BAG IV STA (16:35)
--- NOTE | 2023-09-17 16:35 | CT Scan Report ---
CT OF THE ABDOMEN AND PELVIS WITHOUT CONTRAST CLINICAL HISTORY: Acute kidney injury. COMPARISON STUDY: Hepatic Doppler ultrasound August 30, 2023. TECHNIQUE: Axial images of the abdomen and pelvis were obtained without IV contrast. Images were revi ewed in the axial, sagittal, and coronal planes. Automated exposure control was utilized for the franchesca dy. A dose lowering technique was utilized adhering to the principles of ALARA. FINDINGS: Pacer lead is partially imaged. There is moderate cardiomegaly with a small pericardial eff usion. This is unchanged since CT of July 24, 2023. Small left and trace right pleural effusions ar e also similar to prior exam. No renal, ureteral or bladder calculi are present. There is no hydronep hrosis. Water attenuation bilateral renal lesions favor cysts. There is mild bladder wall thickening, likely chronic. The prostate is enlarged, measuring approximately 6.5 x 6.2 cm. There is mild spleno megaly. Upper abdominal collaterals are present. There is a small amount of ascites. There is body wa ll edema. Nodularity of the liver surface is present. No hepatic lesions are identified on unenhanced examination. There is no biliary or pancreatic ductal dilatation dictation. Portion of the sigmoid c olon extends into a left inguinal hernia. There is no resultant bowel obstruction. There is colonic d iverticulosis without evidence for acute diverticulitis. No lymphadenopathy is identified. There are no acute fractures. IMPRESSION: 1. No urinary calculi or hydronephrosis. Multiple renal cysts. Enlarged prostate. 2. Anasarca. Small left and trace right pleural effusions. 3. Cirrhotic liver. Evidence for portal hypertension, including mild splenomegaly, varices formation and small amount of ascites. 4. Colonic diverticulosis. No evidence for acute diverticulitis. 5. Small portion of the sigmoid colon extends into a left inguinal hernia without resultant bowel obs truction. ACT 112: Negative or not required by law. Electronically signed by: Hesham Milian M.D. 09/17/2023 4:33 PM
--- NOTE | 2023-09-17 16:39 | Electrocardiogram Report ---
Test Reason : Blood Pressure : / mmHG Vent. 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
[2023-09-17] MEDS: FUROSEMIDE 40 MG/4 ML VIAL IV ONE (17:11)
--- NOTE | 2023-09-17 17:46 | History & Physical Report ---
Date of Service September 17, 2023 Assessment & Plan (1) Acute on chronic heart failure with preserved ejection fraction (HFpEF): Plan: Patient is 78-year-old male with PMH chronic HFpEF, Chronic atrial fibrillation status post Watchman procedure, not on chronic anticoagulation, tachybradycardia syndrome s/p pacemaker, liver cirrhosis, CAD, HTN, prediabetes presented to ER with c/o increased swelling and weight gain x 2 weeks. Taking torsemide 20mg daily and recently intermittently taking additional 10mg torsemide in afternoons without relief. In ER afebrile, vital stable. BNP: 233 CXR: Cardiomegaly with pulmonary vascular congestion. No change in a small left pleural effusion. In ER given 40 mg Lasix IV Monitor I's and O's, daily weight, low-sodium diet, 1800 mL fluid restriction Hold home torsemide Obtain a.m. labs and assess volume status for further diuretic dosing CBC, BMP in a.m. Cardiology consult 07/28/2023 echo: EF: 55%, left atrium severely dilated, right atrium moderately dilated, moderate aortic valve sclerosis without significant stenosis, mild tricuspid regurgitation, pulmonary artery systolic pressure 41 mmHg, moderate to large size left pleural effusion (2) UTI (urinary tract infection): Plan: Past week symptoms of dysuria, urinary urgency with dribbling and reported urinary retention UA: 3+ leuk esterase,> 30 WBC, 4+ bacteria Urine culture pending In ER given Cipro IV Will continue Cipro for now Will possibly need further urology follow-up regarding urinary retention (3) Acute kidney injury superimposed on CKD: Plan: MARKO on likely CKD III Cr: 1.9. Was 1.3 on 08/23/2023, 1.4 on 08/13/2023 and 1.2 on 07/28/2023 Monitor renal functions Will try to avoid nephrotoxic agents when possible Nephrology consult (4) Elevated troponin: Plan: Denies chest pain, shortness of breath Initial troponin 37.9 Suspect demand ischemia secondary to CHF Trend troponin EKG in a.m. (5) Hyponatremia: Plan: Na: 129 Urine sodium, urine osmolality, serum osmolality pending Monitor BMP (6) Chronic atrial fibrillation: Plan: Chronic atrial fibrillation s/p Watchman procedure. Not on anticoagulation Current rate controlled Continue carvedilol (7) Tachy-jessi syndrome: Plan: S/P pacemaker Known short battery life remaining on recent pacemaker interrogations Pacemaker interrogation (8) CAD (coronary artery disease): Plan: CAD with recommended medical management Continue aspirin, carvedilol (9) HTN (hypertension): Plan: Continue carvedilol with holding parameters Lisinopril was discontinued by cardiology secondary to soft BPs (10) Pancytopenia: (11) Liver cirrhosis: Plan: Monitor CBC, CMP Recently following with Dr Carpio and undergoing further workup DVT Prophylaxis SCDs Full Code as per discussion with pt Follows with Dr Jb Romero in [place], [place] for routine care Pt was seen and care coordinated with Dr Shannon. See addendum I spent a total of 78 minutes reviewing notes, outpatient records, labs, medication, coordinating, documenting and providing care for this patient excluding time spent in the performance of separately billed services. History of Present Illness Chief Complaint: increased swelling Primary Care Provider: Jb Romero DO Patient is 78-year-old male with PMH chronic HFpEF, Chronic atrial fibrillation status post Watchman procedure, not on chronic anticoagulation, tachybradycardia syndrome s/p pacemaker, liver cirrhosis, CAD, HTN, prediabetes presented to ER with c/o increased swelling. History obtained from patient, patient's , inpatient and outpatient chart review. Patient with recent hospitalization 07/28/2023-08/03/2023 for acute CHF with preserved EF in which he received IV diuresis and was discharged on torsemide 20 mg daily. He also had thoracentesis. He had urology follow-up on 08/04/2023 for postvoid residual and had Corral catheter placed which was removed on 08/16/2023. Patient states the past week he has been having urinary incontinence with dribbling urine. The past week several days he has noticed very dark-colored urine and feels like he is not completely emptying his bladder. Also complains of dysuria. Patient reports the past 2 weeks has noticed increased lower extremity edema, increased abdominal girth and weight gain. Patient states upon returning home from hospital he weighed 169 pounds on his scale. Patient states yesterday had a weight of 177 pounds. States that he can't button his pants anymore. Abdomen feels "full" but denies abdominal pain. He reports he has been having decreased appetite and decreased intake over the past week. After a couple of bites he feels that he is full and not able to eat more. Reports has been following 64 ounce fluid restriction and trying to follow sodium restrictions. Patient states he feels fatigued with ambulation over the past 2 weeks. States not really feeling short of breath just that he "cannot do much". Denies chest pain. Denies fever/chills, diaphoresis, N/V/D/C, MANNING, dizziness, syncope, vision changes, neck pain, orthopnea, palpitations, cough, sore throat, rhinorrhea, p aresthesias, rashes, noted hematuria. Allergies Allergy/AdvReac Type Severity Reaction Status Date / Time Penicillins AdvReac Unknown Verified 07/28/23 10:46 Home Medications Medication Instructions Recorded Confirmed Type aspirin 81 mg tablet 81 mg PO QAM 07/28/23 09/17/23 History carvedilol 12.5 mg tablet 12.5 mg PO BID 07/28/23 09/17/23 History glucosamine sulfate 750 mg tablet 750 mg PO QAM 07/28/23 09/17/23 History potassium chloride 10 mEq 10 meq PO QAM #30 caps 08/03/23 09/17/23 Rx capsule,extended release torsemide 10 mg tablet 20 mg (2 x 10 mg) PO QAM #30 tabs 08/03/23 09/17/23 Rx Past Med/Surg History Medical History (Updated 09/17/23 @ 18:16 by Rocío Palomino PA-C) Liver cirrhosis Pancytopenia CAD (coronary artery disease) Tachy-jessi syndrome Chronic atrial fibrillation HTN (hypertension) CHF (congestive heart failure) Surgical History S/P cardiac pacemaker procedure History of left atrial appendage closure Family History Father Heart disease Sister Heart disease Social History Smoking Status: Never smoker Second Hand Exposure: No; Do You Dip or Chew Tobacco: No; Hx Alcohol Use: Yes Alcohol type: hard liquor Hx Substance Use: No Preferred Language: Sami Communication Ability: Effective 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 Beliefs That Will Affect Care: None Current Living Situation: Spouse Current Living Situation Comment: lives at home, bathroom available on 1st floor Feels Safe at Home: Yes Assistive Devices: Glasses Review of Systems Review of Systems: All systems reviewed & are unremarkable except as noted in HPI & below Physical Exam Physical Exam: General: no distress, WDWN Head: normocephalic, atraumatic Eyes: PERRL, EOM's intact, conjunctiva non-injected, anicteric ENT: hard of hearing, normal inspection external ears, nose, mucous membranes moist Neck: supple, trachea midline Lungs: clear, no respiratory distress, no wheezing/rhonchi/rales CV: Irregularly irregular, 2+pretibial edema Abd: Protuberant, soft, normal BS, non-tender to palpation Ext: no cyanosis, no erythema, no calf tenderness Neuro: A&O x 3, no focal deficits noted, normal affect Skin: warm, dry Results & Data Results & Data Vital Signs (Past 12 Hours) Vital Signs Temp Pulse Pulse Resp BP BP Pulse Ox 09/17/23 17:08 82 20 108/73 97 09/17/23 15:25 90 20 97/69 L 96 09/17/23 12:47 36.6 C 97 H 20 103/65 96 O2 Del Method 09/17/23 17:08 Room Air 09/17/23 15:25 Room Air 09/17/23 12:47 Room Air Laboratory Results Short CBC 09/17/23 Range/Units 13:45 WBC 8.65 (4.8-10.8) K/ul Hgb 12.3 L (14.0-18.0) g/dl Hct 37.7 L (42.0-52.0) % Plt Count 76 L (130-400) K/uL BMP 09/17/23 13:45 Sodium 129 L Potassium 4.1 Chloride 94 L Carbon Dioxide 27 BUN 58 H Creatinine 1.91 H Glucose 132 H Calcium 8.5 L Liver Function 09/17/23 Range/Units 13:45 Total Bilirubin 2.4 H (0.2-1.0) mg/dl AST 33 (13-39) U/L ALT 18 (7-52) U/L Alkaline Phosphatase 174 H (34-104) U/L Albumin 3.3 L (3.4-5.0) gm/dl Urine 09/17/23 Range/Units 15:22 Urine Color Dark Yellow Urine Appearance Cloudy A (Clear) Urine pH 5.0 (4.5-7.5) Ur Specific [place] 1.011 (1.000-1.030) Urine Protein Trace H (Negative) Urine Glucose (UA) Negative (Negative) Diagnostic Findings Chest X-Ray 09/17/23 12:51 XR chest 1V not portable CLINICAL HISTORY: Fluid Overload, CHF COMPARISON STUDY: Chest radiograph July 31, 2023. Chest CT August 03, 2023. FINDINGS: There is no pneumothorax. A skin fold projects over the left chest. Small left pleural effusion is unchanged. There is no consolidation to suggest pneumonia. Left subclavian pacer and left atrial appendage device are place. Cardiomegaly is unchanged. There is pulmonary vascular congestion without overt pulmonary edema. IMPRESSION: 1. Cardiomegaly with pulmonary vascular congestion. 2. No change in a small left pleural effusion. ACT 112: Negative or not required by law. Electronically signed by: Hesham Milian M.D. 09/17/2023 1:37 PM Abdomen/Pelvis CT 09/17/23 16:05 CT OF THE ABDOMEN AND PELVIS WITHOUT CONTRAST CLINICAL HISTORY: Acute kidney injury. COMPARISON STUDY: Hepatic Doppler ultrasound August 30, 2023. TECHNIQUE: Axial images of the abdomen and pelvis were obtained without IV contrast. Images were reviewed in the axial, sagittal, and coronal planes. Automated exposure control was utilized for the study. A dose lowering technique was utilized adhering to the principles of ALARA. FINDINGS: Pacer lead is partially imaged. There is moderate cardiomegaly with a small pericardial effusion. This is unchanged since CT of July 24, 2023. Small left and trace right pleural effusions are also similar to prior exam. No renal, ureteral or bladder calculi are present. There is no hydronephrosis. Water attenuation bilateral renal lesions favor cysts. There is mild bladder wall thickening, likely chronic. The prostate is enlarged, measuring approximately 6.5 x 6.2 cm. There is mild splenomegaly. Upper abdominal collaterals are present. There is a small amount of ascites. There is body wall edema. Nodularity of the liver surface is present. No hepatic lesions are identified on unenhanced examination. There is no biliary or pancreatic ductal dilatation dictation. Portion of the sigmoid colon extends into a left inguinal hernia. There is no resultant bowel obstruction. There is colonic diverticulosis without evidence for acute diverticulitis. No lymphadenopathy is identified. There are no acute fractures. IMPRESSION: 1. No urinary calculi or hydronephrosis. Multiple renal cysts. Enlarged prostate. 2. Anasarca. Small left and trace right pleural effusions. 3. Cirrhotic liver. Evidence for portal hypertension, including mild splenomegaly, varices formation and small amount of ascites. 4. Colonic diverticulosis. No evidence for acute diverticulitis. 5. Small portion of the sigmoid colon extends into a left inguinal hernia without resultant bowel obstruction. ACT 112: Negative or not required by law. Electronically signed by: Hesham Milian M.D. 09/17/2023 4:33 PM ECG Additional Comments: EKG: Atrial fibrillation, rate 86, RBBB Q waves inferior leads Code Status & VTE Plan VTE Prophylaxis Plan VTE Prophylaxis will be ordered: Yes Supervising Physician Co-Signing Physician Notes Pt was seen and examined. Agreed with Rcoío KING exam, assessment and plan. 78-year-old male with PMH chronic HFpEF, Chronic atrial fibrillation status post Watchman procedure, not on chronic anticoagulation, tachybradycardia syndrome s/p pacemaker, liver cirrhosis, CAD, HTN, prediabetes presented to ER with c/o increased swelling and weight gained. Pt was recently discharged on 08/04/23 for CHF exacerbation. Pt said that he has been having worsening swelling in his legs. said that he has been taking his diuretic and he watched his salt and fluid intake. said that he runs out of breath and gets tired with exertion. Denies any chest pain, palpitation, dizziness, chills and fever. CT abd/pelvis showed Nn urinary calculi or hydronephrosis. Multiple renal cysts. Anasarca. Small left and trace right pleural effusions. Cirrhotic liver. Evidence for portal hypertension, including mild splenomegaly, varices formation and small amount of ascites. CXR showed cardiomegaly with pulmonary vascular congestion. No change in a small left pleural effusion. Lab on admission with creatinine 1.9, Na 129, Chloride 94, troponin trending down to 34.7, BNP 233, UA positive for leukocytes, WBC and bacteria. received IV lasix and cipro due to PCN allergies. Will continue abx. Will follow urine cx. monitor electrolytes. Will check urine osmolarity and sodium. Continue monitor BMP. Will consult nephrology for the MARKO and hyponatremia and cardiology for diuretic management. Monitor I/O. Continue monitor closely in telemetry. MD Shiva (9) HTN (hypertension) Hypertension type: primary hypertension Qualified Code(s): I10 - Essential (primary) hypertension
[2023-09-17 18:47] LABS: Troponin I High Sensitivity 34.7 pg/ml (0-20)
[2023-09-17 19:06] LABS: Thyroid Stimulating Hormone 1.907 uIu/ml (0.300-4.500)
[2023-09-17] MEDS ORDERED: ACETAMINOPHEN 325 MG TAB PO PRN (23:20)
[2023-09-17] MEDS ORDERED: POLYETHYLENE (MIRALAX) 17 GM PACK PO PRN (23:20)
[2023-09-17] MEDS: carvediloL 12.5 MG TAB PO SCH (23:43)
[2023-09-18] MEDS: CIPROFLOXACIN / D5W 400 MG/200 ML BAG IV SCH (04:20)
[2023-09-18 05:31] LABS: A calco-baum cmplx NotReported Not Detected (NotDetected); Bact fragilis Not Reported Not Detected (NotDetected); Blood Culture Id Panel See PCR Comment (NotDetected); C auris Not Reported Not Detected (NotDetected); Calbicans Not Reported Not Detected (NotDetected); Candida glabrata Not Reported Not Detected (NotDetected); Candida krusei Not Reported Not Detected (NotDetected); Cneoformans/gatti Not Reported Not Detected (NotDetected); Cparapsilosis Not Reported Not Detected (NotDetected); E cloacae compx Not Reported Not Detected (NotDetected); Efaecalis Not Reported Not Detected (NotDetected); Efaecium Not Reported Not Detected (NotDetected); Enterobacterales DETECTED (NotDetected); Enterobacterales Not Reported DETECTED (NotDetected); Escherichia coli Not Reported DETECTED (NotDetected); H influenzae Not Reported Not Detected (NotDetected); IMP Resistant Gene Not Detected (NotDetected); K aerogenes Not Reported Not Detected (NotDetected); KPC Resistant Gene Not Detected (NotDetected); Koxytoca Not Reported Not Detected (NotDetected); Kpneumoniae grp Not Reported Not Detected (NotDetected); Lmonocyt Not Reported Not Detected (NotDetected); N meningitidis Not Reported Not Detected (NotDetected); NDM Resistant Gene Not Detected (NotDetected); OXA 48 Like Resistant Gene Not Detected (NotDetected); P aeruginosa Not Reported Not Detected (NotDetected); Proteus spp Not Reported Not Detected (NotDetected); Salmonella spp Not Reported Not Detected (NotDetected); Smarcescens Not Reported Not Detected (NotDetected); Staph lugdunensis Not Reported Not Detected (NotDetected); Staph spp. Not Reported Not Detected (NotDetected); Staphaureus Not Reported Not Detected (NotDetected); Staphepi Not Reported Not Detected (NotDetected); Stenmaltophilia Not Reported Not Detected (NotDetected); Strep agal(GrpB) Not Reported Not Detected (NotDetected); Strep pneum Not Reported Not Detected (NotDetected); Strep pyog (GrpA) Not Reported Not Detected (NotDetected); Strep spp Not Reported Not Detected (NotDetected); VIM Resistant Gene Not Detected (NotDetected); mcr-1 Colistin Resistant Gene Not Detected (NotDetected)
[2023-09-18 05:42] LABS: CTX-M Resistant Gene DETECTED (NotDetected)
--- NOTE | 2023-09-18 06:07 | Communication Note ---
Date of Service: September 18, 2023 Patient seems having esbl infection. Talked with patient about his penicillin allergy. Says when he was 16yr old he had rash with penicillin and was told not to take it. Patient denies any sob or edema with it. Will start on Invanz and closely monitor.
[2023-09-18 06:13] LABS: Hematocrit (blood only) 32.3 % (42.0-52.0); Hemoglobin 11.5 g/dl (14.0-18.0); Mean Corpuscular Hemoglobin 29.8 pg (25.0-34.0); Mean Corpuscular Hgb Conc 35.6 g/dL (32.0-36.0); Mean Corpuscular Volume 83.7 fL (80.0-100.0); Mean Platelet Volume 11.4 fL (9.4-12.4); Platelet Count 77 K/uL (130-400); RDW Standard Deviation 45.2 fL (36.4-46.3); Red Blood Count 3.86 M/uL (4.70-6.10); White Blood Count 7.97 K/ul (4.8-10.8)
[2023-09-18 06:29] LABS: Albumin Globulin Ratio 1.2 (0.9-2); BUN Creatinine Ratio 35.9 (10-20); Bilirubin,Total 2.1 mg/dl (0.2-1.0); Calcium 8.1 mg/dl (8.6-10.3); Creatinine Clr Calc Pharmacy 35.4 ml/min; Est GFR (African American) 43.2 ml/min; Est GFR (Non-African American) 37.3 ml/min; Globulin 2.6 gm/dl (2.5-4.0); Magnesium 2.1 mg/dl (1.7-2.4); Phosphorus 3.2 mg/dl (2.5-4.9); Potassium 3.6 mmol/L (3.5-5.1); Total Protein 5.6 gm/dl (6.0-8.3)
[2023-09-18] MEDS: ERTAPENEM SODIUM 1,000 MG in SYRINGE 0 ML IV SCH (07:10)
--- NOTE | 2023-09-18 07:45 | Nephrology Consultation ---
Date of Consultation September 18, 2023 Assessment & Plan (1) Acute kidney injury superimposed on CKD: baseline creatinine best we can tell 1.2. presented 09/16 with creatinine 1.9 on daily torsemide and with worsening abdominal fullness. concern here for marked liver failure > anemia and low platelets, cirrhotic morphology and evidence of portal HTN, hyponatremia > potentially affecting renal function. but also with bacteremia GNR likely from urinary source w/o evidence of obstruction. His SBP are running generally in 90-100s, lower than early July when they were more 110-120s. he had a dose of lasix in ER and #s improved slightly. started by hospitalist on albumin had one dose of cipro then changed to ertapenem he has anasarca and volume overload but low blood pressures, liekly intravascularly dry. also with isoosmolar hyponatremia, hypokalemia. the differential is broad here for MARKO > glomerular processes related to infection and to liver disease, ATN, prerenal, cardiorenal syndrome; for now will focus on bacteremia care with gentle resuscitation and table diuresis >trial of albumin to treat sepsis >continue abtx >f/u pending cxs >will give extra 20 mEq potassium this evening >daily bmp >did order fluid limit 1.8 L ; agree w/ low Na diet Care coordinated w/ Dr Felix regarding volume status, resuscitation approach; she agrees w/ above. History of Present Illness Reason for Consultation: MARKO Requesting Physician: Dr Shannon Attending Physician: Nahid Felix MD History of Present Illness 78 y/o m whom I'm asked to see for MARKO was admitted last evening for acute on chronic HFpEF, UTI, MARKO on presumptive CKD3 after presenting with worsening edema, increasing abdominal fullness and girth, and LUTS and found to have ESBL GN bacteremia (3 of 4 bottles). PMH includes CAD, HTN, HFpEF, permanent atrial fibrillation status post Watchman w/ no chronic anticoagulation, tachybrady syndrome s/p pacemaker, liver cirrhosis. Hospitalized here recently 07/28/2023-08/03/2023 for acute HF; he received thoracentesis, IV diuresis and was discharged on torsemide 20 mg daily. He also had urinary retention as an IP w/ gross hematuria and d/c w/ corral removed by urology 08/16/23. No outpatient data available but baseline creatinine appears to be about 1.2 on review of July labs. For the week prior to admission, more urinary incontinence and dribbling and for the past several days dark urine, dysuria, incomplete void. He has had 8 lb wt gain since hospital d/c with more LE edema and abdominal fullness/distension, limiting po. He endorses decreased appetite and po intake over the past week though he continued all his medications; notes more fatigue though not exertional dyspnea. Has been following 64 ounce fluid and sodium restrictions. Denies chest pain. Denies fever/chills, diaphoresis, N/V/D/C, MANNING, dizziness, syncope, vision changes, neck pain, orthopnea, palpitations, cough, sore throat, rhinorrhea, paresthesias, rashes. Allergies Allergy/AdvReac Type Severity Reaction Status Date / Time Penicillins AdvReac Unknown Verified 07/28/23 10:46 Home Medications Medication Instructions Recorded Confirmed Type aspirin 81 mg tablet 81 mg PO QAM 07/28/23 09/17/23 History carvedilol 12.5 mg tablet 12.5 mg PO BID 07/28/23 09/17/23 History glucosamine sulfate 750 mg tablet 750 mg PO QAM 07/28/23 09/17/23 History potassium chloride 10 mEq 10 meq PO QAM #30 caps 08/03/23 09/17/23 Rx capsule,extended release torsemide 10 mg tablet 20 mg (2 x 10 mg) PO QAM #30 tabs 08/03/23 09/17/23 Rx Patient History Medical History CKD (chronic kidney disease) stage 3, GFR 30-59 ml/min Liver cirrhosis Pancytopenia CAD (coronary artery disease) Tachy-jessi syndrome Chronic atrial fibrillation HTN (hypertension) CHF (congestive heart failure) Surgical History S/P cardiac pacemaker procedure History of left atrial appendage closure Family History Father Heart disease Sister Heart disease Social History Smoking Status: Never smoker Second Hand Exposure: No; Do You Dip or Chew Tobacco: No; Hx Alcohol Use: No Hx Substance Use: No Preferred Language: Kyrgyz Communication Ability: Effective Box Maker Required: No Beliefs That Will Affect Care: None Current Living Situation: Spouse and Family Current Living Situation Comment: Lives with , grandchildren and children Other Information That Helps Us Care for You: No Feels Safe at Home: Yes Safety Concerns: Feels Safe At This Time Assistive Devices: Denture - Upper, Glasses and Hearing Aid - Bilateral Review of Systems 2 Review of Systems: All systems reviewed & are unremarkable except as noted in HPI & below Physical Exam 2 Constitutional: well developed, well nourished and cooperative; no acute distress Eyes: EOM intact bilaterally ENMT: Ears: + hearing impairment; no external ear abnormality Nose: no external nose abnormality Mouth: + dry oral mucous membranes Neck: no nuchal rigidity Respiratory: normal respiratory effort Auscultation: + diminished lung sounds and + crackles (bibasilar) Cardiovascular: Rate/Rhythm: + irregularly irregular Extremities: + edema (2+ dependent and trace peripheral and sacral) Gastrointestinal (Abdomen): Inspection/Auscultation: + abdomen distended and normal bowel sounds Percussion/Palpation: abdomen soft and + dullness to percussion; abdomen nontender Musculoskeletal: Extremities: strength 5/5 throughout Skin: no rashes, warm and dry Neurologic: hoff, fluent speech, no tremor Psychiatric: Orientation: alert, oriented to person and oriented to place A ffect: + anxious affect needs frequent redirection Results & Data Vital Signs (Past 12 Hours) Vital Signs Temp Pulse Pulse Pulse Resp BP Pulse Ox 09/18/23 07:40 93 H 09/18/23 07:38 37.2 C 88 20 100/61 93 09/18/23 03:49 37.1 C 97 H 18 102/62 92 09/18/23 00:00 92 H 09/17/23 23:20 36.7 C 65 18 106/65 93 09/17/23 23:15 36.7 C 65 18 106/65 93 09/17/23 22:46 96 H 20 96 09/17/23 21:30 90 20 112/68 96 09/17/23 20:00 89 20 97/68 L 95 09/17/23 19:57 93 H O2 Del Method 09/18/23 07:40 09/18/23 07:38 Room Air 09/18/23 03:49 Room Air 09/18/23 00:00 09/17/23 23:20 Room Air 09/17/23 23:15 Room Air 09/17/23 22:46 Room Air 09/17/23 21:30 Room Air 09/17/23 20:00 Room Air 09/17/23 19:57 Laboratory Results 09/18/23 05:49 09/18/23 05:49 UA reviewed Diagnostic Findings CT a/p non con FINDINGS: Pacer lead is partially imaged. There is moderate cardiomegaly with a small pericardial effusion. This is unchanged since CT of July 24, 2023. Small left and trace right pleural effusions are also similar to prior exam. No renal, ureteral or bladder calculi are present. There is no hydronephrosis. Water attenuation bilateral renal lesions favor cysts. There is mild bladder wall thickening, likely chronic. The prostate is enlarged, measuring approximately 6.5 x 6.2 cm. There is mild splenomegaly. Upper abdominal collaterals are present. There is a small amount of ascites. There is body wall edema. Nodularity of the liver surface is present. No hepatic lesions are identified on unenhanced examination. There is no biliary or pancreatic ductal dilatation dictation. Portion of the sigmoid colon extends into a left inguinal hernia. There is no resultant bowel obstruction. There is colonic diverticulosis without evidence for acute diverticulitis. No lymphadenopathy is identified. There are no acute fractures. IMPRESSION: 1. No urinary calculi or hydronephrosis. Multiple renal cysts. Enlarged prostate. 2. Anasarca. Small left and trace right pleural effusions. 3. Cirrhotic liver. Evidence for portal hypertension, including mild splenomegaly, varices formation and small amount of ascites. 4. Colonic diverticulosis. No evidence for acute diverticulitis. 5. Small portion of the sigmoid colon extends into a left inguinal hernia without resultant bowel obstruction.
[2023-09-18] MEDS: POTASSIUM CHLORIDE 10 MEQ TABCR PO SCH (09:31)
[2023-09-18] MEDS: ASPIRIN 81 MG ECTAB PO SCH (09:31)
--- NOTE | 2023-09-18 10:15 | Electrocardiogram Report ---
Test Reason : Blood Pressure : / mmHG Vent. Rate : 087 BPM Atrial Rate : 053 BPM P-R Int : 000 ms QRS Dur : 138 ms QT Int : 394 ms P-R-T Axes : 000 -78 029 degrees QTc Int : 474 ms Poor data quality, interpretation may be adversely affected Atrial fibrillation Left axis deviation Right bundle branch block Old Inferior infarct (cited on or before 29-JUL-2023) Possible Old Anterior infarct (cited on or before 17-SEP-2023) Abnormal ECG When compared with ECG of 17-SEP-2023 13:53, No significant change Confirmed by Paramjit Altman ([id number]) on 09/18/2023 10:15:09 AM Referred By: REFERRED SELF Confirmed By:Paramjit Altman
--- NOTE | 2023-09-18 10:48 | Hospitalist Progress Note ---
Date of Service September 18, 2023 Assessment & Plan (1) Acute on chronic heart failure with preserved ejection fraction (HFpEF): Plan: Bacteremia UTI Blood cultx - positive for Grma negat. bacili Urine cultx - posi. for Gram negat. bacili - pt started on Ertapenem overnight, will cont. Patient is 78 yo M with PMH chronic HFpEF, Chronic atrial fibrillation status post Watchman procedure, not on chronic anticoagulation, tachybradycardia syndrome s/p pacemaker, liver cirrhosis, CAD, HTN, prediabetes presented to ER with c/o increased swelling and weight gain x 2 weeks. Taking torsemide 20mg daily and recently intermittently taking additional 10mg torsemide in afternoons without relief. In ER afebrile, vital stable. BNP: 233 CXR: Cardiomegaly with pulmonary vascular congestion. No change in a small left pleural effusion. In ER given 40 mg Lasix IV Monitor I's and O's, daily weight, low-sodium diet, 1800 mL fluid restriction Hold home torsemide Monitor a.m. labs and assess volume status for further diuretic dosing CBC, BMP in a.m. 07/28/2023 echo: EF: 55%, left atrium severely dilated, right atrium moderately dilated, moderate aortic valve sclerosis without significant stenosis, mild tricuspid regurgitation, pulmonary artery systolic pressure 41 mmHg, moderate to large size left pleural effusion Cardiology consulted - Continue antibiotics and trend blood cultures; at this juncture i would not recommend YUMIKO-but if blood cultures continue to be positive we might end up needing to given his pacemaker. (2) UTI (urinary tract infection): Plan: Past week symptoms of dysuria, urinary urgency with dribbling and reported urinary retention UA: 3+ leuk esterase,> 30 WBC, 4+ bacteria Urine culture posit. fro gram negat. bacili In ER given Cipro IV Overnight switched to ertapenem Will need further urology follow-up regarding urinary retention (3) Acute kidney injury superimposed on CKD: Plan: MARKO on likely CKD III Cr: 1.9. Was 1.3 on 08/23/2023, 1.4 on 08/13/2023 and 1.2 on 07/28/2023 Monitor renal functions Will try to avoid nephrotoxic agents when possible Nephrology consulted (4) Elevated troponin: Plan: Denies chest pain, shortness of breath Initial troponin 37.9 Suspect demand ischemia secondary to CHF Trend troponin check EKG, seen by cardiology, as above (5) Hyponatremia: Plan: Na: 129 on admission Urine sodium, urine osmolality, serum osmolality pending Monitor BMP Nephrology consulted (6) Chronic atrial fibrillation: Plan: Chronic atrial fibrillation s/p Watchman procedure. Not on anticoagulation Current rate controlled Continue carvedilol - may need reduce dose for low BP (7) Tachy-jessi syndrome: Plan: S/P pacemaker Known short battery life remaining on recent pacemaker interrogations Pacemaker interrogation (8) CAD (coronary artery disease): Plan: CAD with recommended medical management Continue aspirin, carvedilol (9) HTN (hypertension): Plan: Continue carvedilol with holding parameters Lisinopril was discontinued by cardiology secondary to soft BPs (10) Pancytopenia: (11) Liver cirrhosis: Plan: Monitor CBC, CMP Recently following with Dr Carpio and undergoing further workup DVT Prophylaxi - SCDs Full Code as per discussion with pt Follows with Dr Jb Romero in [place], [place] for routine care Admission and Anticipated Discharge Date Admission Date: September 17, 2023 Subjective Pt seen in follow up of UTI, gram negat. bacteremia, MARKO Patient is currently laying in bed, in no acute distress. Denies chest pain shortness of breath, denies abdominal pain, however endorses abdominal girth increase. He is unaware of any fever or chills. Discussed his bacteremia. Discussed with cardiology and nephrology. Nephrology is okay to continue with albumin. Per cardiology may need YUMIKO if bacteremia persistent. Review of Systems Review of Systems: All systems reviewed & are unremarkable except as noted in Subjective Physical Exam Physical Exam: General: WDWN M in NAD Head: normocephalic, atraumatic Eyes: PERRL, EOM's intact, conjunctiva non-injected, anicteric ENT: hard of hearing, normal inspection external ears, nose, mucous membranes moist Neck: supple Lungs: clear, no respiratory distress, no wheezing/rhonchi/rales CV: Irregularly irregular, 2+pretibial edema Abd: Protuberant, soft, normal BS, non-tender to palpation Ext: no erythema, moves extremities Neuro: A&O x 3, no focal deficits noted, normal affect, speech fluent, moves extremities Skin: warm, dry Results & Data Results & Data Vital Signs (Past 12 Hours) Vital Signs Temp Pulse Pulse Resp BP Pulse Ox O2 Del Method 09/18/23 07:40 93 H 09/18/23 07:38 37.2 C 88 20 100/61 93 Room Air 09/18/23 03:49 37.1 C 97 H 18 102/62 92 Room Air 09/18/23 00:00 92 H 09/17/23 23:20 36.7 C 65 18 106/65 93 Room Air 09/17/23 23:15 36.7 C 65 18 106/65 93 Room Air Laboratory Results 09/18/23 09/17/23 09/17/23 Range/Units 05:49 23:36 18:07 WBC 7.97 (4.8-10.8) K/ul RBC 3.86 L (4.70-6.10) M/uL Hgb 11.5 L (14.0-18.0) g/dl Hct 32.3 L (42.0-52.0) % MCV 83.7 (80.0-100.0) fL MCH 29.8 (25.0-34.0) pg MCHC 35.6 (32.0-36.0) g/dL RDW Std Deviation 45.2 (36.4-46.3) fL RDW Coeff of Ervin 15.0 H (11.5-14.5) % Plt Count 77 L (130-400) K/uL MPV 11.4 (9.4-12.4) fL Immature Gran % (Auto) % Neut % (Auto) % Lymph % (Auto) % [place] % (Auto) % Eos % (Auto) % Baso % (Auto) % Neut # (Auto) (1.40-6.50) K/uL Lymph # (Auto) (1.20-3.40) K/uL Pre[place] # (Auto) (0.11-0.59) K/uL Eos # (Auto) (0.00-0.50) K/uL Baso # (Auto) (0.00-0.20) K/uL Immature Gran # (Auto) (0.01-0.20) K/uL Toxic Vacuolation Platelet Estimate (Normal) PT (9.0-12.0) Seconds INR (0.9-1.1) APTT (21-31) Seconds PTT Ratio Sodium 130 L (136-145) mmol/L Potassium 3.6 (3.5-5.1) mmol/L Chloride 97 L (98-107) mmol/L Carbon Dioxide 24 (21-32) mmol/L Anion Gap 9 (3-11) BUN 61 H (6-23) mg/dl Creatinine 1.70 H (0.6-1.4) mg/dl Est Cr Clr Drug Dosing 35.4 Est GFR ( Amer) 43.2 ml/min Est GFR (Non-Af Amer) 37.3 ml/min BUN/Creatinine Ratio 35.9 H (10-20) Glucose 125 H (70-99(Fasting)) mg/dl Osmolality (280-300) mOsm/kg Lactate (0.4-2.0) mmol/L Calcium 8.1 L (8.6-10.3) mg/dl Phosphorus 3.2 (2.5-4.9) mg/dl Magnesium 2.1 (1.7-2.4) mg/dl Total Bilirubin 2.1 H (0.2-1.0) mg/dl AST 26 (13-39) U/L ALT 16 (7-52) U/L Alkaline Phosphatase 152 H (34-104) U/L Troponin I High Sens 29.8 H 34.7 H (0-20) pg/ml B-Natriuretic Peptide (0-100) pg/ml Total Protein 5.6 L (6.0-8.3) gm/dl Albumin 3.0 L (3.4-5.0) gm/dl Globulin 2.6 (2.5-4.0) gm/dl Albumin/Globulin Ratio 1.2 (0.9-2) Lipase (11-82) U/L TSH 1.907 (0.300-4.500) uIu/ml Urine Color Urine Appearance (Clear) Urine pH (4.5-7.5) Ur Specific [place] (1.000-1.030) Urine Protein (Negative) Urine Glucose (UA) (Negative) Urine Ketones (Negative) Urine Blood (Negative) Urine Nitrite (Negative) Urine Bilirubin (Negative) Urine Urobilinogen (Negative) Ur Leukocyte Esterase (Negative) Urine WBC (Auto) (0-5) /hpf Urine RBC (Auto) (0-4) /hpf U Hyaline Cast (Auto) (0-5) /lpf U Epithel Cells (Auto) (0-5) /lpf Urine Bacteria (Auto) (Negative) Urine Osmolality (500-800) mOsm/kg Ur Random Sodium mmol/L Enterobacterales (PCR) (NotDetected) E. coli (PCR) (NotDetected) mcr-1 Colistin Res Gene PCR (NotDetected) blaIMP Car res Gene PCR (NotDetected) KPC-Carbap Res Gene PCR (NotDetected) blaNDM Car Res Gene PCR (NotDetected) OXA-48 Carbapenem Resis Gene (PCR) (NotDetected) blaVIM Car Res Gene PCR (NotDetected) CTX-M Gene Resistance (PCR) (NotDetected) Bld Cult ID Panel PCR (NotDetected) 09/17/23 09/17/23 09/17/23 Range/Units 16:15 15:22 13:45 WBC 8.65 (4.8-10.8) K/ul RBC 4.33 L (4.70-6.10) M/uL Hgb 12.3 L (14.0-18.0) g/dl Hct 37.7 L (42.0-52.0) % MCV 87.1 (80.0-100.0) fL MCH 28.4 (25.0-34.0) pg MCHC 32.6 (32.0-36.0) g/dL RDW Std Deviation 47.4 H (36.4-46.3) fL RDW Coeff of Ervin 14.8 H (11.5-14.5) % Plt Count 76 L (130-400) K/uL MPV 12.0 (9.4-12.4) fL Immature Gran % (Auto) 0.5 % Neut % (Auto) 92.1 % Lymph % (Auto) 2.5 % Preble % (Auto) 4.7 % Eos % (Auto) 0.0 % Baso % (Auto) 0.2 % Neut # (Auto) 7.96 H (1.40-6.50) K/uL Lymph # (Auto) 0.22 L (1.20-3.40) K/uL Pre[place] # (Auto) 0.41 (0.11-0.59) K/uL Eos # (Auto) 0.00 (0.00-0.50) K/uL Baso # (Auto) 0.02 (0.00-0.20) K/uL Immature Gran # (Auto) 0.04 (0.01-0.20) K/uL Toxic Vacuolation 1+ Platelet Estimate Decreased L (Normal) PT 11.8 (9.0-12.0) Seconds INR 1.1 (0.9-1.1) APTT 31 (21-31) Seconds PTT Ratio 1.1 Sodium 129 L (136-145) mmol/L Potassium 4.1 (3.5-5.1) mmol/L Chloride 94 L (98-107) mmol/L Carbon Dioxide 27 (21-32) mmol/L Anion Gap 8 (3-11) BUN 58 H (6-23) mg/dl Creatinine 1.91 H (0.6-1.4) mg/dl Est Cr Clr Drug Dosing Not Reportable Est GFR ( Amer) 37.5 ml/min Est GFR (Non-Af Amer) 32.4 ml/min BUN/Creatinine Ratio 30.4 H (10-20) Glucose 132 H (70-99(Fasting)) mg/dl Osmolality 292 (280-300) mOsm/kg Lactate 1.3 (0.4-2.0) mmol/L Calcium 8.5 L (8.6-10.3) mg/dl Phosphorus (2.5-4.9) mg/dl Magnesium 2.2 (1.7-2.4) mg/dl Total Bilirubin 2.4 H (0.2-1.0) mg/dl AST 33 (13-39) U/L ALT 18 (7-52) U/L Alkaline Phosphatase 174 H (34-104) U/L Troponin I High Sens 37.9 H (0-20) pg/ml B-Natriuretic Peptide 233 H (0-100) pg/ml Total Protein 6.4 (6.0-8.3) gm/dl Albumin 3.3 L (3.4-5.0) gm/dl Globulin 3.1 (2.5-4.0) gm/dl Albumin/Globulin Ratio 1.1 (0.9-2) Lipase 81 (11-82) U/L TSH (0.300-4.500) uIu/ml Urine Color Dark Yellow Urine Appearance Cloudy A (Clear) Urine pH 5.0 (4.5-7.5) Ur Specific [place] 1.011 (1.000-1.030) Urine Protein Trace H (Negative) Urine Glucose (UA) Negative (Negative) Urine Ketones Negative (Negative) Urine Blood 1+ H (Negative) Urine Nitrite Negative (Negative) Urine Bilirubin Negative (Negative) Urine Urobilinogen Negative (Negative) Ur Leukocyte Esterase 3+ H (Negative) Urine WBC (Auto) >30 H (0-5) /hpf Urine RBC (Auto) 0-4 (0-4) /hpf U Hyaline Cast (Auto) 5-10 H (0-5) /lpf U Epithel Cells (Auto) 0-5 (0-5) /lpf Urine Bacteria (Auto) 4+ H (Negative) Urine Osmolality 337 L (500-800) mOsm/kg Ur Random Sodium < 10 mmol/L Enterobacterales (PCR) DETECTED A (NotDetected) E. coli (PCR) DETECTED A (NotDetected) mcr-1 Colistin Res Gene PCR Not Detected (NotDetected) blaIMP Car res Gene PCR Not Detected (NotDetected) KPC-Carbap Res Gene PCR Not Detected (NotDetected) blaNDM Car Res Gene PCR Not Detected (NotDetected) OXA-48 Carbapenem Resis Gene (PCR) Not Detected (NotDetected) blaVIM Car Res Gene PCR Not Detected (NotDetected) CTX-M Gene Resistance (PCR) DETECTED A* (NotDetected) Bld Cult ID Panel PCR See PCR Comment (NotDetected) Medications Administered Current Inpatient Medications Acetaminophen (Acetaminophen 325 Mg Tab) 650 mg PO Q4H PRN PRN Reason: Pain or Fever Stop: 10/17/23 23:19 Aspirin (Aspirin 81 Mg Ectab) 81 mg PO QAM [facility] Stop: 10/18/23 08:59 Last Admin: 09/18/23 09:31 Dose: 81 mg Carvedilol (Carvedilol 12.5 Mg Tab) 12.5 mg PO BID [facility] Stop: 10/17/23 23:19 Last Admin: 09/18/23 09:31 Dose: 12.5 mg Ertapenem 1,000 mg/ Syringe 10 mls @ 2 mls/min IV Q24H [facility] Stop: 09/28/23 06:59 Last Admin: 09/18/23 07:10 Dose: 2 mls/min Polyethylene Glycol (Polyethylene (Miralax) 17 Gm Pack) 17 gm PO DAILY PRN PRN Reason: Constipation Stop: 10/17/23 23:19 Potassium Chloride (Potassium Chloride 10 Meq Tabcr) 10 meq PO QAM [facility] Stop: 10/18/23 08:59 Last Admin: 09/18/23 09:31 Dose: 10 meq (9) HTN (hypertension) Hypertension type: primary hypertension Qualified Code(s): I10 - Essential (primary) hypertension
[2023-09-18] MEDS: ALBUMIN 25% 25 GM/100 ML VIAL IV SCH (13:19)
--- NOTE | 2023-09-18 17:07 | Cardiology Consultation ---
Date of Consultation September 18, 2023 Assessment & Plan (1) MARKO (acute kidney injury): (2) Liver cirrhosis: (3) Pancytopenia: (4) CAD (coronary artery disease): (5) Tachy-jessi syndrome: (6) Elevated troponin: (7) Hyponatremia: (8) UTI (urinary tract infection): (9) Urinary retention: (10) Bacteremia: Supervising Physician Co-Signing Physician Notes 78y/o male PMH chronic heart failure with preserved EF-NYHA class III, permanent AF s/p watchman procedure on coreg, TBS s/p ppm, CAD, HTN, Prediabetes, liver cirrhosis. He is readmitted due to worsening abdominal distention suspected more to be secondary to cirrhosis and urinary retention and not acute CHF. He was found to be bacteremic with blood cultures growing gram negative baccili suspected to be due to complicated UTI. BP are on the lower side and he is in some MARKO on CKD. I do not think the pt has any acute cardiac process I think his mild troponin elevation is suspected given the degree of his borderline sepsis with bacteremia from a complicated UTI Defer IVF and IVF diuretics to nephrology Continue antibiotics and trend blood cultures; at this juncture i would not recommend YUMIKO-but if blood cultures continue to be positive we might end up needing to given his pacemaker. If BP drops <90 then hold coreg Monitor on telemetry Please re-consult as necessary I discussed the patient and my assessment with the hospitalist he agreed with my recommendations History of Present Illness Reason for Consultation: CHF/elevated troponins Requesting Physician: hospitalist Attending Physician: Nahid Felix MD History of Present Illness pt is not the best historian he tells me he came into the ER due to "filling up fluid again" he was admitted back in Jul due to volume overloaded and urinary retention he says his abdomen is still bloated his admission blood cultures have turned positive suspected to be due to UTI cardiology consulted due to mildly elevated troponin and volume overload Allergies Allergy/AdvReac Type Severity Reaction Status Date / Time Penicillins AdvReac Unknown Verified 07/28/23 10:46 Home Medications Medication Instructions Recorded Confirmed Type aspirin 81 mg tablet 81 mg PO QAM 07/28/23 09/17/23 History carvedilol 12.5 mg tablet 12.5 mg PO BID 07/28/23 09/17/23 History glucosamine sulfate 750 mg tablet 750 mg PO QAM 07/28/23 09/17/23 History potassium chloride 10 mEq 10 meq PO QAM #30 caps 08/03/23 09/17/23 Rx capsule,extended release torsemide 10 mg tablet 20 mg (2 x 10 mg) PO QAM #30 tabs 08/03/23 09/17/23 Rx Patient History Medical History CKD (chronic kidney disease) stage 3, GFR 30-59 ml/min Liver cirrhosis Pancytopenia CAD (coronary artery disease) Tachy-jessi syndrome Chronic atrial fibrillation HTN (hypertension) CHF (congestive heart failure) Surgical History S/P cardiac pacemaker procedure History of left atrial appendage closure Family History Father Heart disease Sister Heart disease Social History Smoking Status: Never smoker Second Hand Exposure: No; Do You Dip or Chew Tobacco: No; Hx Alcohol Use: No Hx Substance Use: No Preferred Language: Micronesian Communication Ability: Effective Bone Crusher Required: No Beliefs That Will Affect Care: None Current Living Situation: Spouse and Family Current Living Situation Comment: Lives with , grandchildren and children Other Information That Helps Us Care for You: No Feels Safe at Home: Yes Safety Concerns: Feels Safe At This Time Assistive Devices: Denture - Upper, Glasses and Hearing Aid - Bilateral Review of Systems Review of Systems: All systems reviewed & are unremarkable except as noted in HPI & below Physical Exam Physical Exam: alert and awake, NAD NC/AT, EOMI Supple No JVD irregular/ irregular S1/S2,+ murmur CTA b/l no w/r/r distented no LE edema b/l corral noted skin intact no focal deficits Results & Data Vital Signs (Past 12 Hours) Vital Signs Temp Pulse Pulse Resp BP Pulse Ox O2 Del Method 09/18/23 16:45 91 H 09/18/23 15:51 36.6 C 97 H 97/61 L 94 Room Air 09/18/23 11:03 36.6 C 87 20 93/54 L 94 Room Air 09/18/23 07:40 93 H 09/18/23 07:38 37.2 C 88 20 100/61 93 Room Air Laboratory Results Laboratory Results - last 24 hr 09/17/23 09/17/23 09/17/23 13:45 15:22 16:15 WBC RBC Hgb Hct MCV MCH MCHC RDW Std Deviation RDW Coeff of Ervin Plt Count MPV Sodium Potassium Chloride Carbon Dioxide Anion Gap BUN Creatinine Est Cr Clr Drug Dosing Est GFR ( Amer) Est GFR (Non-Af Amer) BUN/Creatinine Ratio Glucose Osmolality 292 Calcium Phosphorus Magnesium Total Bilirubin AST ALT Alkaline Phosphatase Troponin I High Sens Total Protein Albumin Globulin Albumin/Globulin Ratio TSH Urine Osmolality 337 L Ur Random Sodium < 10 Enterobacterales (PCR) DETECTED A E. coli (PCR) DETECTED A mcr-1 Colistin Res Gene PCR Not Detected blaIMP Car res Gene PCR Not Detected KPC-Carbap Res Gene PCR Not Detected blaNDM Car Res Gene PCR Not Detected OXA-48 Carbapenem Resis Gene (PCR) Not Detected blaVIM Car Res Gene PCR Not Detected CTX-M Gene Resistance (PCR) DETECTED A* Bld Cult ID Panel PCR See PCR Comment 09/17/23 09/17/23 09/18/23 18:07 23:36 05:49 WBC 7.97 RBC 3.86 L Hgb 11.5 L Hct 32.3 L MCV 83.7 MCH 29.8 MCHC 35.6 RDW Std Deviation 45.2 RDW Coeff of Ervin 15.0 H Plt Count 77 L MPV 11.4 Sodium 130 L Potassium 3.6 Chloride 97 L Carbon Dioxide 24 Anion Gap 9 BUN 61 H Creatinine 1.70 H Est Cr Clr Drug Dosing 35.4 Est GFR ( Amer) 43.2 Est GFR (Non-Af Amer) 37.3 BUN/Creatinine Ratio 35.9 H Glucose 125 H Osmolality Calcium 8.1 L Phosphorus 3.2 Magnesium 2.1 Total Bilirubin 2.1 H AST 26 ALT 16 Alkaline Phosphatase 152 H Troponin I High Sens 34.7 H 29.8 H Total Protein 5.6 L Albumin 3.0 L Globulin 2.6 Albumin/Globulin Ratio 1.2 TSH 1.907 Urine Osmolality Ur Random Sodium Enterobacterales (PCR) E. coli (PCR) mcr-1 Colistin Res Gene PCR blaIMP Car res Gene PCR KPC-Carbap Res Gene PCR blaNDM Car Res Gene PCR OXA-48 Carbapenem Resis Gene (PCR) blaVIM Car Res Gene PCR CTX-M Gene Resistance (PCR) Bld Cult ID Panel PCR Diagnostic Findings CXR: Left pleural effusion cardiomegaly Abd CT 1. No urinary calculi or hydronephrosis. Multiple renal cysts. Enlarged prostate. 2. Anasarca. Small left and trace right pleural effusions. 3. Cirrhotic liver. Evidence for portal hypertension, including mild splenomegaly, varices formation and small amount of ascites. 4. Colonic diverticulosis. No evidence for acute diverticulitis. 5. Small portion of the sigmoid colon extends into a left inguinal hernia without resultant bowel obstruction. Medications Administered Current Inpatient Medications Acetaminophen (Acetaminophen 325 Mg Tab) 650 mg PO Q4H PRN PRN Reason: Pain or Fever Stop: 10/17/23 23:19 Aspirin (Aspirin 81 Mg Ectab) [facility] [place] Stop: 10/18/23 08:59 Last Admin: 09/18/23 09:31 Dose: 81 mg Carvedilol (Carvedilol 12.5 Mg Tab) 12.5 mg PO BID [facility] Stop: 10/17/23 23:19 Last Admin: 09/18/23 09:31 Dose: 12.5 mg Ertapenem 1,000 mg/ Syringe 10 mls @ 2 mls/min IV Q24H [facility] Stop: 09/28/23 06:59 Last Admin: 09/18/23 07:10 Dose: 2 mls/min Albumin Human (Albumin 25%) 25 gm in 100 mls @ 50 mls/hr IV Q8H [facility] Stop: 09/21/23 12:29 Last Infusion: 09/18/23 15:20 Dose: Infused Polyethylene Glycol (Polyethylene (Miralax) 17 Gm Pack) 17 gm PO DAILY PRN PRN Reason: Constipation Stop: 10/17/23 23:19 Potassium Chloride (Potassium Chloride 10 Meq Tabcr) 10 [facility]q [facility] [place] Stop: 10/18/23 08:59 Last Admin: 09/18/23 09:31 Dose: 10 meq ECG Additional Comments: ECG: AF with RBBB Telemetry: AF 90s occasional PVCs
[2023-09-18] MEDS: POTASSIUM CHLORIDE CRTAB 20 MEQ TABCR PO ONE (19:16)
[2023-09-19 06:08] LABS: Hematocrit (blood only) 32.1 % (42.0-52.0); Hemoglobin 10.8 g/dl (14.0-18.0); Mean Corpuscular Hemoglobin 29.3 pg (25.0-34.0); Mean Corpuscular Hgb Conc 33.6 g/dL (32.0-36.0); Mean Corpuscular Volume 87.2 fL (80.0-100.0); Mean Platelet Volume 12.7 fL (9.4-12.4); Platelet Count 82 K/uL (130-400); RDW Coefficient of Variation 15.1 % (11.5-14.5); RDW Standard Deviation 48.2 fL (36.4-46.3); Red Blood Count 3.68 M/uL (4.70-6.10); White Blood Count 6.61 K/ul (4.8-10.8)
[2023-09-19 06:22] LABS: BUN Creatinine Ratio 36.4 (10-20); Calcium 8.4 mg/dl (8.6-10.3); Creatinine Clr Calc Pharmacy 36.6 ml/min; Est GFR (African American) 44.8 ml/min; Est GFR (Non-African American) 38.6 ml/min; Magnesium 2.4 mg/dl (1.7-2.4); Phosphorus 3.1 mg/dl (2.5-4.9); Potassium 3.7 mmol/L (3.5-5.1)
--- NOTE | 2023-09-19 08:05 | Hospitalist Progress Note ---
Date of Service September 19, 2023 Assessment & Plan (1) Acute on chronic heart failure with preserved ejection fraction (HFpEF): Plan: Bacteremia UTI Blood cultx - positive for Grma negat. bacili Urine cultx - posi. for Gram negat. bacili - ESBL E. coli - cont. Ertapenem Patient is 78 yo M with PMH chronic HFpEF, Chronic atrial fibrillation status post Watchman procedure, not on chronic anticoagulation, tachybradycardia syndrome s/p pacemaker, liver cirrhosis, CAD, HTN, prediabetes presented to ER with c/o increased swelling and weight gain x 2 weeks. Taking torsemide 20mg deacon ly and recently intermittently taking additional 10mg torsemide in afternoons without relief. In ER afebrile, vital stable. BNP: 233 CXR: Cardiomegaly with pulmonary vascular congestion. No change in a small left pleural effusion. In ER given 40 mg Lasix IV Monitor I's and O's, daily weight, low-sodium diet, 1800 mL fluid restriction Hold home torsemide Monitor a.m. labs and assess volume status for further diuretic dosing CBC, BMP in a.m. 07/28/2023 echo: EF: 55%, left atrium severely dilated, right atrium moderately dilated, moderate aortic valve sclerosis without significant stenosis, mild tricuspid regurgitation, pulmonary artery systolic pressure 41 mmHg, moderate to large size left pleural effusion Cardiology consulted - Continue antibiotics and trend blood cultures; at this juncture i would not recommend YUMIKO-but if blood cultures continue to be positive we might end up needing to given his pacemaker. (2) UTI (urinary tract infection): Plan: Past week symptoms of dysuria, urinary urgency with dribbling and reported urinary retention UA: 3+ leuk esterase,> 30 WBC, 4+ bacteria Urine culture posit. fro gram negat. bacili - ESBL E. coli In ER given Cipro IV Overnight switched to ertapenem, cont. Will need further urology follow-up regarding urinary retention (3) Acute kidney injury superimposed on CKD: Plan: MARKO on likely CKD III Cr: 1.9. Was 1.3 on 08/23/2023, 1.4 on 08/13/2023 and 1.2 on 07/28/2023 Monitor renal functions Will try to avoid nephrotoxic agents when possible Nephrology consulted Cr improved (4) Elevated troponin: Plan: Denies chest pain, shortness of breath Initial troponin 37.9 Suspect demand ischemia secondary to CHF Trended troponin checked EKG, seen by cardiology, as above (5) Hyponatremia: Plan: Na: 129 on admission Urine sodium, urine osmolality, serum osmolality pending Monitor BMP Nephrology consulted (6) Chronic atrial fibrillation: Plan: Chronic atrial fibrillation s/p Watchman procedure. Not on anticoagulation Current rate controlled Continue carvedilol - reduced dose for low BP (7) Tachy-jessi syndrome: Plan: S/P pacemaker Known short battery life remaining on recent pacemaker interrogations Pacemaker interrogation Seen by cardiology (8) CAD (coronary artery disease): Plan: CAD with recommended medical management Continue aspirin, carvedilol (9) HTN (hypertension): Plan: Continue carvedilol with holding parameters Lisinopril was discontinued by cardiology secondary to soft BPs (10) Pancytopenia: (11) Liver cirrhosis: Plan: Monitor CBC, CMP Recently following with Dr Carpio and undergoing further workup DVT Prophylaxi - SCDs Full Code as per discussion with pt Follows with Dr Jb Romero in [place], [place] for routine care Admission and Anticipated Discharge Date Admission Date: September 17, 2023 Subjective Pt seen in follow up of UTI, gram negat. bacteremia, MARKO Patient is currently sitting up in chair, in no acute distress. Denies chest pain shortness of breath, denies abdominal pain, however endorses abdominal girth increase. He is unaware of any fever or chills. Discussed his bacteremia. Discussed with cardiology and nephrology. Nephrology is in agreement to continue with albumin. Per cardiology may need YUMIKO if bacteremia persistent. Review of Systems Review of Systems: All systems reviewed & are unremarkable except as noted in Subjective Physical Exam Physical Exam: General: WDWN M in NAD Head: normocephalic, atraumatic Eyes: PERRL, EOM's intact, conjunctiva non-injected, anicteric ENT: hard of hearing, normal inspection external ears, nose, mucous membranes moist Neck: supple Lungs: clear, no respiratory distress, no wheezing/rhonchi/rales CV: Irregularly irregular, 2+pretibial edema Abd: Protuberant, soft, normal BS, non-tender to palpation Ext: no erythema, moves extremities Neuro: A&O x 3, no focal deficits noted, normal affect, speech fluent, moves extremities Skin: warm, dry Results & Data Results & Data Vital Signs (Past 12 Hours) Vital Signs Temp Pulse Resp BP Pulse Ox O2 Del Method 09/19/23 04:00 36.6 C 83 18 101/66 94 Room Air 09/18/23 23:30 37.0 C 69 18 102/62 92 Room Air 09/18/23 21:13 92 H 110/67 Laboratory Results 09/19/23 Range/Units 05:28 WBC 6.61 (4.8-10.8) K/ul RBC 3.68 L (4.70-6.10) M/uL Hgb 10.8 L (14.0-18.0) g/dl Hct 32.1 L (42.0-52.0) % MCV 87.2 (80.0-100.0) fL MCH 29.3 (25.0-34.0) pg MCHC 33.6 (32.0-36.0) g/dL RDW Std Deviation 48.2 H (36.4-46.3) fL RDW Coeff of Ervin 15.1 H (11.5-14.5) % Plt Count 82 L (130-400) K/uL MPV 12.7 H (9.4-12.4) fL Sodium 131 L (136-145) mmol/L Potassium 3.7 (3.5-5.1) mmol/L Chloride 98 (98-107) mmol/L Carbon Dioxide 27 (21-32) mmol/L Anion Gap 6 (3-11) BUN 60 H (6-23) mg/dl Creatinine 1.65 H (0.6-1.4) mg/dl Est Cr Clr Drug Dosing 36.6 ml/min Est GFR ( Amer) 44.8 ml/min Est GFR (Non-Af Amer) 38.6 ml/min BUN/Creatinine Ratio 36.4 H (10-20) Glucose 126 H (70-99(Fasting)) mg/dl Calcium 8.4 L (8.6-10.3) mg/dl Phosphorus 3.1 (2.5-4.9) mg/dl Magnesium 2.4 (1.7-2.4) mg/dl Medications Administered Current Inpatient Medications Acetaminophen (Acetaminophen 325 Mg Tab) 650 mg PO Q4H PRN PRN Reason: Pain or Fever Stop: 10/17/23 23:19 Aspirin (Aspirin 81 Mg Ectab) 81 mg PO QAM [facility] Stop: 10/18/23 08:59 Last Admin: 09/18/23 09:31 Dose: 81 mg Carvedilol (Carvedilol 12.5 Mg Tab) 12.5 mg PO BID [facility] Stop: 10/17/23 23:19 Last Admin: 09/18/23 21:13 Dose: 12.5 mg Ertapenem 1,000 mg/ Syringe 10 mls @ 2 mls/min IV Q24H [facility] Stop: 09/28/23 06:59 Last Admin: 09/19/23 06:37 Dose: 2 mls/min Albumin Human (Albumin 25%) 25 gm in 100 mls @ 50 mls/hr IV Q8H [facility] Stop: 09/21/23 12:29 Last Infusion: 09/19/23 06:43 Dose: Infused Polyethylene Glycol (Polyethylene (Miralax) 17 Gm Pack) 17 gm PO DAILY PRN PRN Reason: Constipation Stop: 10/17/23 23:19 Potassium Chloride (Potassium Chloride 10 Meq Tabcr) 10 meq PO QAM [facility] Stop: 10/18/23 08:59 Last Admin: 09/18/23 09:31 Dose: 10 meq (9) HTN (hypertension) Hypertension type: primary hypertension Qualified Code(s): I10 - Essential (primary) hypertension
[2023-09-19] MEDS: carvediloL 6.25 MG TAB PO SCH (09:03)
--- NOTE | 2023-09-19 17:23 | Nephrology Progress Note ---
Date of Service September 19, 2023 Assessment & Plan (1) Acute kidney injury superimposed on CKD: Plan: baseline creatinine best we can tell 1.2. presented 09/16 with creatinine 1.9 on daily torsemide and with worsening abdominal fullness. concern here for marked liver failure > anemia and low platelets, cirrhotic morphology and evidence of portal HTN, hyponatremia > potentially affecting renal function. but also with bacteremia GNR likely from urinary source w/o evidence of obstruction. His SBP are running generally in 90-100s, lower than early July when they were more 110-120s. he had a dose of lasix in ER and #s improved slightly. started by hospitalist on albumin had one dose of cipro then changed to ertapenem he has anasarca and volume overload but low blood pressures, liekly intravascularly dry. also with isoosmolar hyponatremia, hypokalemia. the differential is broad here for MARKO > glomerular processes related to infection and to liver disease, ATN, prerenal, cardiorenal syndrome; for now will focus on bacteremia care with gentle resuscitation and defer diuresis; even w/ this approach he is autodiuresing w/ over 2.5L UOP so far today >continue 2 day trial of albumin to treat sepsis >continue ertapenem >f/u pending cxs >will give extra 20 mEq potassium again this afternoon >daily bmp >continue fluid limit 1.8 L ; low Na diet Care coordinated w/ Dr Felix regarding volume status, resuscitation approach; she agrees w/ above. Admission and Anticipated Discharge Date Admission Date: September 17, 2023 Subjective no acute interval events; denies sob, n/v, edema, or other concerns. no uncontrolled flank or abdominal pain. no c/o abd distension today to me Review of Systems 2 Review of Systems: All systems reviewed & are unremarkable except as noted in Subjective Physical Exam 2 Constitutional: well developed, well nourished and cooperative; no acute distress (sitting on side of bed in dark on RA leaning on tray table) Eyes: EOM intact bilaterally ENMT: Ears: + hearing impairment; no external ear abnormality Nose: no external nose abnormality Mouth: + dry oral mucous membranes Neck: no nuchal rigidity Respiratory: normal respiratory effort Auscultation: + diminished lung sounds Cardiovascular: Rate/Rhythm: + irregularly irregular Extremities: + edema (1+ dependent and trace peripheral and sacral) Gastrointestinal (Abdomen): Inspection/Auscultation: + abdomen distended and normal bowel sounds Percussion/Palpation: abdomen soft and + dullness to percussion; abdomen nontender Musculoskeletal: Extremities: strength 5/5 throughout Skin: no rashes, warm and dry Psychiatric: Orientation: alert, oriented to person and oriented to place A ffect: + anxious affect Results & Data Vital Signs (Past 12 Hours) Vital Signs Temp Pulse Resp BP Pulse Ox O2 Del Method 09/19/23 15:44 36.9 C 85 16 104/69 97 Room Air 09/19/23 12:36 103/69 09/19/23 12:17 36.7 C 81 18 103/81 94 Room Air 09/19/23 08:04 36.8 C 82 18 111/84 95 Room Air Laboratory Results 09/19/23 05:28 09/19/23 05:28
[2023-09-19] MEDS: POTASSIUM CHLORIDE CRTAB 20 MEQ TABCR PO ONE (18:40)
[2023-09-20 06:37] LABS: Hematocrit (blood only) 32.3 % (42.0-52.0); Hemoglobin 10.7 g/dl (14.0-18.0); Mean Corpuscular Hemoglobin 29.2 pg (25.0-34.0); Mean Corpuscular Hgb Conc 33.1 g/dL (32.0-36.0); Mean Platelet Volume 12.3 fL (9.4-12.4); Platelet Count 86 K/uL (130-400); RDW Coefficient of Variation 15.3 % (11.5-14.5); RDW Standard Deviation 49.6 fL (36.4-46.3); Red Blood Count 3.67 M/uL (4.70-6.10); White Blood Count 4.71 K/ul (4.8-10.8)
[2023-09-20 06:53] LABS: BUN Creatinine Ratio 36.3 (10-20); Calcium 8.7 mg/dl (8.6-10.3); Creatinine Clr Calc Pharmacy 40.9 ml/min; Est GFR (African American) 51.9 ml/min; Est GFR (Non-African American) 44.8 ml/min; Magnesium 2.6 mg/dl (1.7-2.4)
--- NOTE | 2023-09-20 08:34 | Hospitalist Progress Note ---
Date of Service September 20, 2023 Assessment & Plan (1) Acute on chronic heart failure with preserved ejection fraction (HFpEF): Plan: Bacteremia UTI Blood cultx - positive for ESBL E. coli Urine cultx - posi. for Gram negat. bacili - ESBL E. coli ID consulted and discussed with, patient will need 10 days of IV ertapenem total. Patient is 78 yo M with PMH chronic HFpEF, Chronic atrial fibrillation status post Watchman procedure, not on chronic anticoagulation, tachybradycardia syndrome s/p pacemaker, liver cirrhosis, CAD, HTN, prediabetes presented to ER with c/o increased swelling and weight gain x 2 weeks. Taking torsemide 20mg daily and recently intermittently taking additional 10mg torsemide in afternoons without relief. In ER afebrile, vital stable. BNP: 233 CXR: Cardiomegaly with pulmonary vascular congestion. No change in a small left pleural effusion. In ER given 40 mg Lasix IV Monitor I's and O's, daily weight, low-sodium diet, 1800 mL fluid restriction Hold home torsemide Monitor a.m. labs and assess volume status for further diuretic dosing CBC, BMP in a.m. 07/28/2023 echo: EF: 55%, left atrium severely dilated, right atrium moderately dilated, moderate aortic valve sclerosis without significant stenosis, mild tricuspid regurgitation, pulmonary artery systolic pressure 41 mmHg, moderate to large size left pleural effusion Cardiology consulted - Continue antibiotics and trend blood cultures; at this juncture i would not recommend YUMIKO-but if blood cultures continue to be positive we might end up needing to given his pacemaker. (2) UTI (urinary tract infection): Plan: Past week symptoms of dysuria, urinary urgency with dribbling and reported urinary retention UA: 3+ leuk esterase,> 30 WBC, 4+ bacteria Urine culture posit. fro gram negat. bacili - ESBL E. coli In ER given Cipro IV Cont. ertapenem, as above Will need further urology follow-up regarding urinary retention (3) Acute kidney injury superimposed on CKD: Plan: MARKO on likely CKD III Cr: 1.9. Was 1.3 on 08/23/2023, 1.4 on 08/13/2023 and 1.2 on 07/28/2023 Monitor renal functions Will try to avoid nephrotoxic agents when possible Nephrology consulted - cont. albumin, start iv lasix and midodrine. US abdomen repeated - no significant ascites. Cr improved (4) Elevated troponin: Plan: Denies chest pain, shortness of breath Initial troponin 37.9 Suspect demand ischemia secondary to CHF Trended troponin checked EKG, seen by cardiology, as above (5) Hyponatremia: Plan: Na: 129 on admission Urine sodium, urine osmolality, serum osmolality pending Monitor BMP Nephrology consulted, as above (6) Chronic atrial fibrillation: Plan: Chronic atrial fibrillation s/p Watchman procedure. Not on anticoagulation Current rate controlled Continue carvedilol - reduced dose for low BP (7) Tachy-jessi syndrome: Plan: S/P pacemaker Known short battery life remaining on recent pacemaker interrogations Pacemaker interrogation Seen by cardiology (8) CAD (coronary artery disease): Plan: CAD with recommended medical management Continue aspirin, carvedilol (9) HTN (hypertension): Plan: Continue carvedilol with holding parameters Lisinopril was discontinued by cardiology secondary to soft BPs (10) Pancytopenia: (11) Liver cirrhosis: Plan: Monitor CBC, CMP Recently following with Dr Carpio and undergoing further workup DVT Prophylaxi - SCDs Full Code as per discussion with pt Follows with Dr Jb Romero in [place], [place] for routine care Admission and Anticipated Discharge Date Admission Date: September 17, 2023 Subjective Pt seen in follow up of UTI, gram negat. bacteremia, MARKO Patient is currently sitting up in chair, in no acute distress. Denies chest pain shortness of breath, denies abdominal pain, however endorses abdominal girth increase. He is unaware of any fever or chills. Discussed his bacteremia. Discussed with cardiology and nephrology. Nephrology is in agreement to continue with albumin, also add midodrine and lasix today. Per cardiology may need YUMIKO if bacteremia persistent. Cr improved ID consulted and discussed with - for ESBL E.coli bacteremia - will need IV ertapenem for 10 days Review of Systems Review of Systems: All systems reviewed & are unremarkable except as noted in Subjective Physical Exam Physical Exam: General: WDWN M in NAD Head: normocephalic, atraumatic Eyes: PERRL, EOM's intact, conjunctiva non-injected, anicteric ENT: hard of hearing, normal inspection external ears, nose, mucous membranes moist Neck: supple Lungs: clear, no respiratory distress, no wheezing/rhonchi/rales CV: Irregularly irregular, 2+pretibial edema Abd: Protuberant, soft, normal BS, non-tender to palpation Ext: no erythema, moves extremities Neuro: A&O x 3, no focal deficits noted, normal affect, speech fluent, moves extremities Skin: warm, dry Results & Data Results & Data Vital Signs (Past 12 Hours) Vital Signs Temp Pulse Pulse Resp BP BP Pulse Ox 09/20/23 07:31 36.4 C L 83 16 120/74 97 09/20/23 07:22 84 09/20/23 04:05 36.4 C L 86 20 94/59 L 93 09/20/23 00:03 36.8 C 85 20 103/66 96 09/19/23 23:54 84 09/19/23 20:50 36.5 C 92 H 18 112/71 94 O2 Del Method 09/20/23 07:31 Room Air 09/20/23 07:22 09/20/23 04:05 Room Air 09/20/23 00:03 Room Air 09/19/23 23:54 09/19/23 20:50 Room Air Laboratory Results 09/20/23 Range/Units 05:34 WBC 4.71 L (4.8-10.8) K/ul RBC 3.67 L (4.70-6.10) M/uL Hgb 10.7 L (14.0-18.0) g/dl Hct 32.3 L (42.0-52.0) % MCV 88.0 (80.0-100.0) fL MCH 29.2 (25.0-34.0) pg MCHC 33.1 (32.0-36.0) g/dL RDW Std Deviation 49.6 H (36.4-46.3) fL RDW Coeff of Ervin 15.3 H (11.5-14.5) % Plt Count 86 L (130-400) K/uL MPV 12.3 (9.4-12.4) fL Sodium 137 (136-145) mmol/L Potassium 4.0 (3.5-5.1) mmol/L Chloride 102 (98-107) mmol/L Carbon Dioxide 29 (21-32) mmol/L Anion Gap 6 (3-11) BUN 53 H (6-23) mg/dl Creatinine 1.46 H (0.6-1.4) mg/dl Est Cr Clr Drug Dosing 40.9 ml/min Est GFR ( Amer) 51.9 ml/min Est GFR (Non-Af Amer) 44.8 ml/min BUN/Creatinine Ratio 36.3 H (10-20) Glucose 105 H (70-99(Fasting)) mg/dl Calcium 8.7 (8.6-10.3) mg/dl Phosphorus 3.0 (2.5-4.9) mg/dl Magnesium 2.6 H (1.7-2.4) mg/dl Medications Administered Current Inpatient Medications Acetaminophen (Acetaminophen 325 Mg Tab) 650 mg PO Q4H PRN PRN Reason: Pain or Fever Stop: 10/17/23 23:19 Aspirin (Aspirin 81 Mg [facility]ctab) [facility] [place]: 10/18/23 08:59 Last Admin: 09/20/23 07:45 Dose: 81 mg Carvedilol (Carvedilol 6.25 Mg Tab) 6.25 mg PO BID [facility] Stop: 10/19/23 08:59 Last Admin: 09/20/23 07:45 Dose: 6.25 mg Ertapenem 1,000 mg/ Syringe 10 mls @ 2 mls/min IV Q24H [facility] Stop: 09/28/23 06:59 Last Admin: 09/20/23 06:37 Dose: 2 mls/min Albumin Human (Albumin 25%) 25 gm in 100 mls @ 50 mls/hr IV Q8H [facility] Stop: 09/21/23 12:29 Last Infusion: 09/20/23 07:24 Dose: Infused Polyethylene Glycol (Polyethylene (Miralax) 17 Gm Pack) 17 gm PO DAILY PRN PRN Reason: Constipation Stop: 10/17/23 23:19 Potassium Chloride (Potassium Chloride 10 Meq Tabcr) 10 meq PO QAM [facility] Stop: 10/18/23 08:59 Last Admin: 09/20/23 07:45 Dose: 10 meq (9) HTN (hypertension) Hypertension type: primary hypertension Qualified Code(s): I10 - Essential (primary) hypertension
--- NOTE | 2023-09-20 14:29 | Nephrology Progress Note ---
Date of Service September 20, 2023 Assessment & Plan Admission and Anticipated Discharge Date Admission Date: September 17, 2023 Subjective Assessment & Plan (1) Acute kidney injury superimposed on CKD: Plan: Baseline creatinine best we can tell 1.2. peak creat 1.9 this admission in the setting of ESBL bacteremia. MARKO is guaranteed in such setting in such vulnerable patient. Creat now improving and close to baseline he does have Ascites, LE edema and Pulm congestion. he does need diuretics. rec: 1 Albumin to conitnue. 2 lasix 20 mg iv q8hr hold for SBP < 90 3 US abdomen for Ascites evaluation. 4 At this time he is acting like Decompensated Liver Cirrhosis. 5 Add midodrine 5mg tid. 6 Kcl 20 meq tid. 7 I and O charting Subjective No new issues. made 1625 ml urine yesterday. Vital signs acceptable but lowish BP. renal labs better. he is c/o Abd distension and LE edema and asking why he is not getting his torsemide. Review of Systems Review of Systems: All systems reviewed & are unremarkable except as noted in Subjective Physical Exam Constitutional: well developed, well nourished and cooperative; no acute distress (sitting on side of bed in dark on RA leaning on tray table) Eyes: EOM intact bilaterally ENMT: Ears: + hearing impairment; no external ear abnormality Nose: no external nose abnormality Mouth: + dry oral mucous membranes Neck: no nuchal rigidity Respiratory: normal respiratory effort Auscultation: + diminished lung sounds Cardiovascular: Rate/Rhythm: + irregularly irregular Extremities: + edema (1+ dependent and trace peripheral and sacral) Gastrointestinal (Abdomen): Inspection/Auscultation: + abdomen distended and normal bowel sounds Percussion/Palpation: abdomen soft and + dullness to percussion; abdomen nontender Musculoskeletal: Extremities: strength 5/5 throughout Skin: no rashes, warm and dry Psychiatric: Orientation: alert, oriented to person and oriented to place Affect: + anxious affect Results & Data Vital Signs (Past 12 Hours) Vital Signs Temp Pulse Pulse Resp BP BP Pulse Ox 09/20/23 11:29 36.5 C 82 18 107/82 94 09/20/23 07:31 36.4 C L 83 16 120/74 97 09/20/23 07:22 84 09/20/23 04:05 36.4 C L 86 20 94/59 L 93 O2 Del Method 09/20/23 11:29 Room Air 09/20/23 07:31 Room Air 09/20/23 07:22 09/20/23 04:05 Room Air
--- NOTE | 2023-09-20 16:01 | Ultrasound Report ---
US abdomen ltd ascites HISTORY: 78 years-old Male Ascites eval in patient with Cirrhosis cirrhosis COMPARISON: 09/17/2023 TECHNIQUE: Multiple real-time sonographic images of the abdomen were obtained assessing grayscale elizabeth earance FINDINGS: Increased echogenicity of the hepatic parenchyma. The liver appears enlarged. The spleen is again enl arged as well measuring 16 cm compatible with portal venous hypertension. There is trace upper abdomi nal ascites. IMPRESSION: There is only trace abdominal ascites again noted, similar to prior. ACT 112: Negative or not required by law. The above report was generated using voice recognition software. It may contain grammatical, syntax o r spelling errors. Electronically signed by: Robert Au M.D. 09/20/2023 3:59 PM
[2023-09-20] MEDS: POTASSIUM CHLORIDE CRTAB 20 MEQ TABCR PO SCH (16:52)
[2023-09-20] MEDS: MIDODRINE HCL 2.5 MG TAB PO SCH (16:52)
[2023-09-20] MEDS: FUROSEMIDE INJ 20 MG/2 ML VIAL IV SCH (16:52)
--- NOTE | 2023-09-20 18:01 | Infectious Disease Consult ---
Date of Service September 20, 2023 Telehealth Information I performed this visit using a real-time telehealth connection between my location and the patients location ([facility]). After connecting through interactive tele-video, patient was identified by name and date of and/or wristband check.Patient (or authorized healthcare employee representative) was informed that this was a telemedicine visit and it was being conducted confidentially over secure lines. My office door was closed and no one else was present in the room with me.Patient (or authorized healthcare employee representative) provided consent to proceed with the visit, expressed an understanding of privacy and security of the telemedicine visit, and gave permission to have a hospital employee representative in the room in order to assist with the visit and to conduct portions of the visit, as needed. I informed the patient (or authorized healthcare employee representative) that I reviewed their record and presented the opportunity for them to ask any questions regarding the visit today. The patient agreed to participate. Assessment & Plan (1) E coli bacteremia: (2) Complicated UTI (urinary tract infection): (3) History of obstructive nephropathy: (4) Acute kidney injury superimposed on CKD: Plan - Unfortunately, the ESBL E coli is resistant to all possible oral options including Bactrim and fluoroquinolones. Therefore, I would recommend treating with ertapenem for a total duration of 10 days including inpatient antibiotic days (Last day will be 09/27/2023). - Patient to continue to follow up with urology to further investigate his obstructive uropathy. - Thank you for consulting ID. We will sign off for now. History of Present Illness History of Present Illness Mr. Edmondson is a 78-year-old man with medical history of chronic heart failure with preserved ejection fraction, chronic AFib status post Watchman procedure, tachy-jessi syndrome (status post pacemaker), liver cirrhosis, CAD, HTN, and prediabetes who was admitted to [facility] on 09/16 because of acute progressive shortness of breath which was believed to be secondary to heart failure exacerbation. He mentioned that he was having lower urinary tract symptoms including dysuria as well as urgency with dribbling for around 1 week prior to presentation. Chest x-ray showed pulmonary vascular congestion with cardiomegaly. CT scan of the abdomen and pelvis performed on presentation showed cirrhotic liver, enlarged prostate with anasarca, mild ascites as well as small left and trace right pleural effusions. Shortly after admission, 2 sets of blood culture came back positive for ESBL E coli. Also later during the admission, urine culture was positive for ESBL E coli. Id team was consulted for further recommendations and to help guide antibiotic treatment. Allergies Allergy/AdvReac Type Severity Reaction Status Date / Time Penicillins AdvReac Unknown Verified 07/28/23 10:46 Home Medications Medication Instructions Recorded Confirmed Type aspirin 81 mg tablet 81 mg PO QAM 07/28/23 09/17/23 History carvedilol 12.5 mg tablet 12.5 mg PO BID 07/28/23 09/17/23 History glucosamine sulfate 750 mg tablet 750 mg PO QAM 07/28/23 09/17/23 History potassium chloride 10 mEq 10 meq PO QAM #30 caps 08/03/23 09/17/23 Rx capsule,extended release torsemide 10 mg tablet 20 mg (2 x 10 mg) PO QAM #30 tabs 08/03/23 09/17/23 Rx Patient History Medical History CKD (chronic kidney disease) stage 3, GFR 30-59 ml/min Liver cirrhosis Pancytopenia CAD (coronary artery disease) Tachy-jessi syndrome Chronic atrial fibrillation HTN (hypertension) CHF (congestive heart failure) Surgical History S/P cardiac pacemaker procedure History of left atrial appendage closure Family History Father Heart disease Sister Heart disease Social History Smoking Status: Never smoker Second Hand Exposure: No; Do You Dip or Chew Tobacco: No; Hx Alcohol Use: No Hx Substance Use: No Preferred Language: German Communication Ability: Effective 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 Required: No Beliefs That Will Affect Care: None Current Living Situation: Spouse and Family Current Living Situation Comment: Lives with , grandchildren and children Other Information That Helps Us Care for You: No Feels Safe at Home: Yes Safety Concerns: Feels Safe At This Time Assistive Devices: Denture - Upper, Glasses and Hearing Aid - Bilateral Review of Systems Constitutional:Fatigue but better than before, no fever or chills HEENT:no sore throat, no nasal discharge Cardiovascular:no chest pain, or palpitations Respiratory:Shortness of breath better than before, no cough Gastrointestinal:No nausea, vomiting, diarrhea or abdominal pain :Improving dysuria and frequency Musculoskeletal/Skin: No muscle aches or rash Neurologic:no dizziness or headache Physical Exam Couldn't be performed as the consult was conducted via telemed. Results & Data Vital Signs (Past 12 Hours) Vital Signs Temp Pulse Pulse Resp BP Pulse Ox O2 Del Method 09/20/23 16:13 36.4 C L 82 16 107/71 97 Room Air 09/20/23 11:29 36.5 C 82 18 107/82 94 Room Air 09/20/23 07:31 36.4 C L 83 16 120/74 97 Room Air 09/20/23 07:22 84 Laboratory Results Microbiology: 09/16: 3/4 bottles of blood cultures growing ESBL E coli 3/1: Urine culture growing ESBL E coli 32: 2 sets of blood culture negative to date
--- NOTE | 2023-09-21 09:25 | Hospitalist Progress Note ---
Date of Service September 21, 2023 Assessment & Plan (1) Acute on chronic heart failure with preserved ejection fraction (HFpEF): Plan: Bacteremia UTI Blood cultx - positive for ESBL E. coli Urine cultx - posi. for Gram negat. bacili - ESBL E. coli ID consulted and discussed with, patient will need 10 days of IV ertapenem total. Patient is 78 yo M with PMH chronic HFpEF, Chronic atrial fibrillation status post Watchman procedure, not on chronic anticoagulation, tachybradycardia syndrome s/p pacemaker, liver cirrhosis, CAD, HTN, prediabetes presented to ER with c/o increased swelling and weight gain x 2 weeks. Taking torsemide 20mg daily and recently intermittently taking additional 10mg torsemide in afternoons without relief. In ER afebrile, vital stable. BNP: 233 CXR: Cardiomegaly with pulmonary vascular congestion. No change in a small left pleural effusion. In ER given 40 mg Lasix IV Monitor I's and O's, daily weight, low-sodium diet, 1800 mL fluid restriction Hold home torsemide Monitor a.m. labs and assess volume status for further diuretic dosing CBC, BMP in a.m. 07/28/2023 echo: EF: 55%, left atrium severely dilated, right atrium moderately dilated, moderate aortic valve sclerosis without significant stenosis, mild tricuspid regurgitation, pulmonary artery systolic pressure 41 mmHg, moderate to large size left pleural effusion Cardiology consulted - Continue antibiotics and trend blood cultures; at this juncture i would not recommend YUMIKO-but if blood cultures continue to be positive we might end up needing to given his pacemaker. (2) UTI (urinary tract infection): Plan: Past week symptoms of dysuria, urinary urgency with dribbling and reported urinary retention UA: 3+ leuk esterase,> 30 WBC, 4+ bacteria Urine culture posit. fro gram negat. bacili - ESBL E. coli In ER given Cipro IV Cont. ertapenem, as above Will need further urology follow-up regarding urinary retention (3) Acute kidney injury superimposed on CKD: Plan: MARKO on likely CKD III Cr: 1.9. Was 1.3 on 08/23/2023, 1.4 on 08/13/2023 and 1.2 on 07/28/2023 Monitor renal functions Will try to avoid nephrotoxic agents when possible Nephrology consulted - cont. albumin, start iv lasix and midodrine. US abdomen repeated - no significant ascites. Cr improved (4) Elevated troponin: Plan: Denies chest pain, shortness of breath Initial troponin 37.9 Suspect demand ischemia secondary to CHF Trended troponin checked EKG, seen by cardiology, as above (5) Hyponatremia: Plan: Na: 129 on admission Urine sodium, urine osmolality, serum osmolality pending Monitor BMP Nephrology consulted, as above (6) Chronic atrial fibrillation: Plan: Chronic atrial fibrillation s/p Watchman procedure. Not on anticoagulation Current rate controlled Continue carvedilol - reduced dose for low BP (7) Tachy-jessi syndrome: Plan: S/P pacemaker Known short battery life remaining on recent pacemaker interrogations Pacemaker interrogation Seen by cardiology (8) CAD (coronary artery disease): Plan: CAD with recommended medical management Continue aspirin, carvedilol (9) HTN (hypertension): Plan: Continue carvedilol with holding parameters Lisinopril was discontinued by cardiology secondary to soft BPs (10) Pancytopenia: (11) Liver cirrhosis: Plan: Monitor CBC, CMP Recently following with Dr Carpio and undergoing further workup DVT Prophylaxi - SCDs Full Code as per discussion with pt Follows with Dr Jb Romero in [place], [place] for routine care Admission and Anticipated Discharge Date Admission Date: September 17, 2023 Subjective Pt seen in follow up of UTI, gram negat. bacteremia, MARKO Patient is currently sitting up in chair, in no acute distress. Denies chest pain shortness of breath, denies abdominal pain, however endorses abdominal girth increase. He is unaware of any fever or chills. Discussed his bacteremia. Discussed with cardiology and nephrology. Nephrology is in agreement to continue with albumin, also add midodrine and lasix today. Per cardiology may need YUMIKO if bacteremia persistent. Cr improved ID consulted and discussed with - for ESBL E.coli bacteremia - will need IV ertapenem for 10 days Physical Exam Physical Exam: General: WDWN M in NAD Head: normocephalic, atraumatic Eyes: PERRL, EOM's intact, conjunctiva non-injected, anicteric ENT: hard of hearing, normal inspection external ears, nose, mucous membranes moist Neck: supple Lungs: clear, no respiratory distress, no wheezing/rhonchi/rales CV: Irregularly irregular, 2+pretibial edema Abd: Protuberant, soft, normal BS, non-tender to palpation Ext: no erythema, moves extremities Neuro: A&O x 3, no focal deficits noted, normal affect, speech fluent, moves extremities Skin: warm, dry Results & Data Results & Data Vital Signs (Past 12 Hours) Vital Signs Temp Pulse Pulse Resp BP BP Pulse Ox 09/21/23 07:39 36.6 C 74 18 111/66 97 09/21/23 07:03 73 09/21/23 04:13 36.6 C 80 20 109/67 96 09/20/23 23:20 36.8 C 89 20 102/66 94 09/20/23 22:05 73 O2 Del Method 09/21/23 07:39 Room Air 09/21/23 07:03 09/21/23 04:13 Room Air 09/20/23 23:20 Room Air 09/20/23 22:05 Medications Administered Current Inpatient Medications Acetaminophen (Acetaminophen 325 Mg Tab) 650 mg PO Q4H PRN PRN Reason: Pain or Fever Stop: 10/17/23 23:19 Aspirin (Aspirin 81 Mg Ectab) 81 mg PO QAM DEBORA Stop: 10/18/23 08:59 Last Admin: 09/21/23 08:59 Dose: 81 mg Carvedilol (Carvedilol 6.25 Mg Tab) 6.25 mg PO BID DEBORA Stop: 10/19/23 08:59 Last Admin: 09/21/23 08:59 Dose: 6.25 mg Furosemide (Furosemide Inj 20 Mg/2 Ml Vial) 20 mg IV Q8H DEBORA Stop: 10/20/23 14:59 Last Admin: 09/21/23 07:07 Dose: 20 mg Ertapenem 1,000 mg/ Syringe 10 mls @ 2 mls/min IV Q24H DEBORA Stop: 09/28/23 06:59 Last Admin: 09/21/23 07:07 Dose: 2 mls/min Albumin Human (Albumin 25%) 25 gm in 100 mls @ 50 mls/hr IV Q8H DEBORA Stop: 09/21/23 12:29 Last Infusion: 09/21/23 06:39 Dose: Infused Midodrine (Midodrine Hcl 2.5 Mg Tab) 5 mg PO TID@0800,1200,1700 DEBORA Stop: 10/20/23 16:59 Last Admin: 09/21/23 07:08 Dose: 5 mg Polyethylene Glycol (Polyethylene (Miralax) 17 Gm Pack) 17 gm PO DAILY PRN PRN Reason: Constipation Stop: 10/17/23 23:19 Potassium Chloride (Potassium Chloride Crtab 20 Meq Tabcr) 20 meq PO TID DEBORA Stop: 10/20/23 14:59 Last Admin: 09/21/23 08:59 Dose: 20 meq (2) UTI (urinary tract infection) Hematuria presence: without hematuria Urinary tract infection type: site unspecified Qualified Code(s): N39.0 - Urinary tract infection, site not specified (9) HTN (hypertension) Hypertension type: primary hypertension Qualified Code(s): I10 - Essential (primary) hypertension
[2023-09-21 10:22] LABS: Hemoglobin 11.4 g/dl (14.0-18.0); Mean Corpuscular Hgb Conc 33.5 g/dL (32.0-36.0); Mean Corpuscular Volume 86.5 fL (80.0-100.0); Mean Platelet Volume 12.1 fL (9.4-12.4); Platelet Count 134 K/uL (130-400); RDW Coefficient of Variation 15.8 % (11.5-14.5); Red Blood Count 3.93 M/uL (4.70-6.10); White Blood Count 4.28 K/ul (4.8-10.8)
[2023-09-21 10:47] LABS: Calcium 9.3 mg/dl (8.6-10.3); Creatinine Clr Calc Pharmacy 47.7 ml/min; Est GFR (African American) 61.4 ml/min; Magnesium 2.4 mg/dl (1.7-2.4)
--- NOTE | 2023-09-21 12:21 | Nephrology Progress Note ---
Date of Service September 21, 2023 Assessment & Plan Admission and Anticipated Discharge Date Admission Date: September 17, 2023 Subjective Subjective Assessment & Plan (1) Acute kidney injury superimposed on CKD: Plan: Baseline creatinine best we can tell 1.2. peak creat 1.9 but now back to baseline 1.2. MARKO in the setting of ESBL bacteremia. MARKO is guaranteed in such setting in such vulnerable patient. Creat now improving and close to baseline he does have Ascites, LE edema and Pulm congestion. he does need diuretics. rec: 1 Albumin to continue. 2 lasix 20 mg iv q8hr hold for SBP < 90 3 US abdomen for Ascites evaluation---Not as much as patient is Complaining. No need of Ascites tap 4 At this time he is acting like Decompensated Liver Cirrhosis. 5 Continue midodrine 5mg tid. 6 Continue Kcl 20 meq tid. 7 I and O charting Subjective No new issues. made 2625 ml urine yesterday--Sig rise with Iv lasix. No real drop in BP with Iv lasix compared to no lasix. renal labs better. Review of Systems Review of Systems: All systems reviewed & are unremarkable except as noted in Subjective Physical Exam Constitutional: well developed, well nourished and cooperative; no acute distress (sitting on side of bed in dark on RA leaning on tray table) Eyes: EOM intact bilaterally ENMT: Ears: + hearing impairment; no external ear abnormality Nose: no external nose abnormality Mouth: + dry oral mucous membranes Neck: no nuchal rigidity Respiratory: normal respiratory effort Auscultation: + diminished lung sounds Cardiovascular: + irregularly irregular Extremities: + edema (1+ dependent and trace peripheral and sacral) Gastrointestinal (Abdomen): Inspection/Auscultation: + abdomen distended and normal bowel sounds Percussion/Palpation: abdomen soft and + dullness to percussion; abdomen nontender Musculoskeletal: Extremities: strength 5/5 throughout Skin: no rashes, warm and dry Psychiatric: Orientation: alert, oriented to person and oriented to place Affect: + anxious affect Results & Data Vital Signs (Past 12 Hours) Vital Signs Temp Pulse Pulse Resp BP BP Pulse Ox 09/21/23 11:42 36.4 C L 82 18 101/57 L 97 09/21/23 07:39 36.6 C 74 18 111/66 97 09/21/23 07:03 73 09/21/23 04:13 36.6 C 80 20 109/67 96 O2 Del Method 09/21/23 11:42 Room Air 09/21/23 07:39 Room Air 09/21/23 07:03 09/21/23 04:13 Room Air
[2023-09-22 06:53] LABS: Hematocrit (blood only) 34.3 % (42.0-52.0); Hemoglobin 11.4 g/dl (14.0-18.0); Mean Corpuscular Hemoglobin 29.2 pg (25.0-34.0); Mean Corpuscular Hgb Conc 33.2 g/dL (32.0-36.0); Mean Corpuscular Volume 87.7 fL (80.0-100.0); Mean Platelet Volume 10.7 fL (9.4-12.4); Platelet Count 155 K/uL (130-400); RDW Coefficient of Variation 15.5 % (11.5-14.5); RDW Standard Deviation 49.1 fL (36.4-46.3); Red Blood Count 3.91 M/uL (4.70-6.10)
[2023-09-22 07:20] LABS: BUN Creatinine Ratio 37.5 (10-20); Calcium 9.1 mg/dl (8.6-10.3); Creatinine Clr Calc Pharmacy 49.9 ml/min; Est GFR (African American) 65.8 ml/min; Est GFR (Non-African American) 56.8 ml/min; Magnesium 2.2 mg/dl (1.7-2.4); Phosphorus 3.2 mg/dl (2.5-4.9); Potassium 4.6 mmol/L (3.5-5.1)
--- NOTE | 2023-09-22 14:56 | Hospitalist Progress Note ---
Date of Service September 22, 2023 Assessment & Plan (1) Acute on chronic heart failure with preserved ejection fraction (HFpEF): Plan: Bacteremia UTI Blood cultx - positive for ESBL E. coli Urine cultx - posi. for Gram negat. bacili - ESBL E. coli ID consulted and discussed with, patient will need 10 days of IV ertapenem total. Patient is 78 yo M with PMH chronic HFpEF, Chronic atrial fibrillation status post Watchman procedure, not on chronic anticoagulation, tachybradycardia syndrome s/p pacemaker, liver cirrhosis, CAD, HTN, prediabetes presented to ER with c/o increased swelling and weight gain x 2 weeks. Taking torsemide 20mg daily and recently intermittently taking additional 10mg torsemide in afternoons without relief. In ER afebrile, vital stable. BNP: 233 CXR: Cardiomegaly with pulmonary vascular congestion. No change in a small left pleural effusion. In ER given 40 mg Lasix IV Monitor I's and O's, daily weight, low-sodium diet, 1800 mL fluid restriction Hold home torsemide Monitor a.m. labs and assess volume status for further diuretic dosing CBC, BMP in a.m. 07/28/2023 echo: EF: 55%, left atrium severely dilated, right atrium moderately dilated, moderate aortic valve sclerosis without significant stenosis, mild tricuspid regurgitation, pulmonary artery systolic pressure 41 mmHg, moderate to large size left pleural effusion Cardiology consulted - Continue antibiotics and trend blood cultures; at this juncture i would not recommend YUMIKO-but if blood cultures continue to be positive we might end up needing to given his pacemaker. (2) UTI (urinary tract infection): Plan: Past week symptoms of dysuria, urinary urgency with dribbling and reported urinary retention UA: 3+ leuk esterase,> 30 WBC, 4+ bacteria Urine culture posit. fro gram negat. bacili - ESBL E. coli In ER given Cipro IV Cont. ertapenem, as above Will need further urology follow-up regarding urinary retention (3) Acute kidney injury superimposed on CKD: Plan: MARKO on likely CKD III Cr: 1.9. Was 1.3 on 08/23/2023, 1.4 on 08/13/2023 and 1.2 on 07/28/2023 Monitor renal functions Will try to avoid nephrotoxic agents when possible Nephrology consulted - cont. albumin, iv lasix and midodrine. US abdomen repeated - no significant ascites. Cr improved (4) Elevated troponin: Plan: Denies chest pain, shortness of breath Initial troponin 37.9 Suspect demand ischemia secondary to CHF Trended troponin checked EKG, seen by cardiology, as above (5) Hyponatremia: Plan: Na: 129 on admission Urine sodium, urine osmolality, serum osmolality pending Monitor BMP Nephrology consulted, as above (6) Chronic atrial fibrillation: Plan: Chronic atrial fibrillation s/p Watchman procedure. Not on anticoagulation Current rate controlled Continue carvedilol - reduced dose for low BP (7) Tachy-jessi syndrome: Plan: S/P pacemaker Known short battery life remaining on recent pacemaker interrogations Pacemaker interrogation Seen by cardiology (8) CAD (coronary artery disease): Plan: CAD with recommended medical management Continue aspirin, carvedilol (9) HTN (hypertension): Plan: Continue carvedilol with holding parameters Lisinopril was discontinued by cardiology secondary to soft BPs (10) Pancytopenia: (11) Liver cirrhosis: Plan: Monitor CBC, CMP Recently following with Dr Carpio and undergoing further workup DVT Prophylaxi - SCDs Full Code as per discussion with pt Follows with Dr Jb Romero in [place], [place] for routine care Admission and Anticipated Discharge Date Admission Date: September 17, 2023 Subjective Pt seen in follow up of UTI, gram negat. bacteremia, MARKO Patient is currently sitting up in chair, in no acute distress. Denies chest pain shortness of breath, denies abdominal pain, however endorses abdominal girth increase, and LE edema. continued on albumin, midodrine and lasix. Per cardiology may need YUMIKO if bacteremia persistent. Cr improved 1.2 ID consulted and discussed with - for ESBL E.coli bacteremia - will need IV ertapenem for 10 days Pt's at the bedside and updated. Discussed w/ nephrology - cont. current regimen for today. Review of Systems Review of Systems: All systems reviewed & are unremarkable except as noted in Subjective Physical Exam Physical Exam: General: WDWN M in NAD Head: normocephalic, atraumatic Eyes: PERRL, EOM's intact, conjunctiva non-injected, anicteric ENT: hard of hearing, normal inspection external ears, nose, mucous membranes moist Neck: supple Lungs: clear, no respiratory distress, no wheezing/rhonchi/rales CV: Irregularly irregular, 2+pretibial edema Abd: Protuberant, soft, normal BS, non-tender to palpation Ext: no erythema, moves extremities Neuro: A&O x 3, no focal deficits noted, normal affect, speech fluent, moves extremities Skin: warm, dry Results & Data Results & Data Vital Signs (Past 12 Hours) Vital Signs Temp Pulse Pulse Resp BP BP Pulse Ox 09/22/23 11:58 36.6 C 78 17 105/65 95 09/22/23 07:44 36.6 C 77 17 112/67 94 09/22/23 07:05 73 09/22/23 03:57 36.7 C 79 20 105/66 96 O2 Del Method 09/22/23 11:58 Room Air 09/22/23 07:44 Room Air 09/22/23 07:05 09/22/23 03:57 Room Air Laboratory Results 09/22/23 Range/Units 06:05 WBC 5.00 (4.8-10.8) K/ul RBC 3.91 L (4.70-6.10) M/uL Hgb 11.4 L (14.0-18.0) g/dl Hct 34.3 L (42.0-52.0) % MCV 87.7 (80.0-100.0) fL MCH 29.2 (25.0-34.0) pg MCHC 33.2 (32.0-36.0) g/dL RDW Std Deviation 49.1 H (36.4-46.3) fL RDW Coeff of Ervin 15.5 H (11.5-14.5) % Plt Count 155 (130-400) K/uL MPV 10.7 (9.4-12.4) fL Sodium 139 (136-145) mmol/L Potassium 4.6 (3.5-5.1) mmol/L Chloride 103 (98-107) mmol/L Carbon Dioxide 30 (21-32) mmol/L Anion Gap 6 (3-11) BUN 45 H (6-23) mg/dl Creatinine 1.20 (0.6-1.4) mg/dl Est Cr Clr Drug Dosing 49.9 ml/min Est GFR ( Amer) 65.8 ml/min Est GFR (Non-Af Amer) 56.8 ml/min BUN/Creatinine Ratio 37.5 H (10-20) Glucose 91 (70-99(Fasting)) mg/dl Calcium 9.1 (8.6-10.3) mg/dl Phosphorus 3.2 (2.5-4.9) mg/dl Magnesium 2.2 (1.7-2.4) mg/dl Medications Administered Current Inpatient Medications Acetaminophen (Acetaminophen 325 Mg Tab) 650 mg PO Q4H PRN PRN Reason: Pain or Fever Stop: 10/17/23 23:19 Aspirin (Aspirin 81 Mg Ectab) 81 mg PO QAM DEBORA Stop: 10/18/23 08:59 Last Admin: 09/22/23 09:05 Dose: 81 mg Carvedilol (Carvedilol 6.25 Mg Tab) 6.25 mg PO BID DEBORA Stop: 10/19/23 08:59 Last Admin: 09/22/23 09:05 Dose: 6.25 mg Furosemide (Furosemide Inj 20 Mg/2 Ml Vial) 20 mg IV Q8H DEBORA Stop: 10/20/23 14:59 Last Admin: 09/22/23 14:29 Dose: 20 mg Ertapenem 1,000 mg/ Syringe 10 mls @ 2 mls/min IV Q24H DEBORA Stop: 09/28/23 06:59 Last Admin: 09/22/23 06:19 Dose: 2 mls/min Midodrine (Midodrine Hcl 2.5 Mg Tab) 5 mg PO TID@0800,1200,1700 DEBORA Stop: 10/20/23 16:59 Last Admin: 09/22/23 12:33 Dose: 5 mg Polyethylene Glycol (Polyethylene (Miralax) 17 Gm Pack) 17 gm PO DAILY PRN PRN Reason: Constipation Stop: 10/17/23 23:19 Potassium Chloride (Potassium Chloride Crtab 20 Meq Tabcr) 20 meq PO TID DEBORA Stop: 10/20/23 14:59 Last Admin: 09/22/23 13:13 Dose: 20 meq (2) UTI (urinary tract infection) Hematuria presence: without hematuria Urinary tract infection type: site unspecified Qualified Code(s): N39.0 - Urinary tract infection, site not specified (9) HTN (hypertension) Hypertension type: primary hypertension Qualified Code(s): I10 - Essential (primary) hypertension
--- NOTE | 2023-09-22 17:20 | Nephrology Progress Note ---
Date of Service September 22, 2023 Assessment & Plan (1) Acute kidney injury superimposed on CKD: Plan: baseline creatinine best we can tell 1.2. presented 09/16 with creatinine 1.9 on daily torsemide and with worsening abdominal fullness. concern here for marked liver failure > anemia and low platelets, cirrhotic morphology and evidence of portal HTN, hyponatremia > potentially affecting renal function. but also with bacteremia ESBL from urinary source w/o evidence of obstruction. His SBP are running generally in 90-100s, lower than early July when they were more 110- 120s. he had a dose of lasix in ER and #s improved slightly. started by hospitalist on albumin had one dose of cipro then changed to ertapenem with plan per infectious diseases for a 10-day course of ertapenem Baseline creatinine best we can tell 1.2. peak creat 1.9 this admission in the setting of ESBL bacteremia. MARKO is guaranteed in such setting in such vulnerable patient. Creat now improving and close to baseline he does have Ascites, LE edema and Pulm congestion. he does continue to need diuretics. -Continue lasix 20 mg iv q8hr hold for SBP < 90 -continue aggressive tid K supplementation -continue midodrine -continue 1.8L FR, low Na diet -continue strict I/O -daily bmp He has diuresed impressively but still w/ significant volume on board >> daily standing weights ordered Admission and Anticipated Discharge Date Admission Date: September 17, 2023 Subjective Denies shortness of breath or uncontrolled pain. Tells me his scrotal swelling has improved. Unsure about more peripheral edema status. Remains quite concerned about increased abdominal girth and distention. No chest pain or palpitations no shortness of breath no nausea vomiting diarrhea; seen on evening rounds Review of Systems 2 Review of Systems: All systems reviewed & are unremarkable except as noted in Subjective Physical Exam 2 Constitutional: well developed, well nourished and cooperative; no acute distress (Lying flat in the darkened room on room air) Eyes: EOM intact bilaterally ENMT: Ears: + hearing impairment; no external ear abnormality Nose: no external nose abnormality Mouth: + dry oral mucous membranes Neck: no nuchal rigidity Respiratory: normal respiratory effort Auscultation: + diminished lung sounds Cardiovascular: Rate/Rhythm: + irregularly irregular Extremities: + edema (2+ dependent and trace peripheral and sacral) Gastrointestinal (Abdomen): Inspection/Auscultation: + abdomen distended and normal bowel sounds Percussion/Palpation: abdomen soft and + dullness to percussion; abdomen nontender Musculoskeletal: Extremities: strength 5/5 throughout Skin: no rashes, warm and dry Psychiatric: Orientation: alert, oriented to person and oriented to place A ffect: euthymic affect Results & Data Vital Signs (Past 12 Hours) Vital Signs Temp Pulse Pulse Resp BP BP Pulse Ox 09/22/23 15:50 36.9 C 74 18 111/65 97 09/22/23 15:07 100 H 09/22/23 11:58 36.6 C 78 17 105/65 95 09/22/23 07:44 36.6 C 77 17 112/67 94 09/22/23 07:05 73 O2 Del Method 09/22/23 15:50 Room Air 09/22/23 15:07 09/22/23 11:58 Room Air 09/22/23 07:44 Room Air 09/22/23 07:05 Laboratory Results 09/22/23 06:05 09/22/23 06:05
[2023-09-23 06:04] LABS: Hematocrit (blood only) 34.8 % (42.0-52.0); Hemoglobin 11.8 g/dl (14.0-18.0); Mean Corpuscular Hemoglobin 29.1 pg (25.0-34.0); Mean Corpuscular Hgb Conc 33.9 g/dL (32.0-36.0); Mean Corpuscular Volume 85.9 fL (80.0-100.0); Platelet Count 201 K/uL (130-400); RDW Coefficient of Variation 15.9 % (11.5-14.5); RDW Standard Deviation 49.7 fL (36.4-46.3); Red Blood Count 4.05 M/uL (4.70-6.10); White Blood Count 6.15 K/ul (4.8-10.8)
[2023-09-23 06:21] LABS: BUN Creatinine Ratio 31.8 (10-20); Calcium 9.3 mg/dl (8.6-10.3); Creatinine Clr Calc Pharmacy 43.7 ml/min; Est GFR (African American) 58.6 ml/min; Est GFR (Non-African American) 50.6 ml/min; Magnesium 2.2 mg/dl (1.7-2.4); Phosphorus 3.5 mg/dl (2.5-4.9); Potassium 4.7 mmol/L (3.5-5.1)
--- NOTE | 2023-09-23 07:35 | Nephrology Progress Note ---
Date of Service September 23, 2023 Assessment & Plan (1) Acute kidney injury superimposed on CKD: Plan: baseline creatinine best we can tell 1.2. presented 09/16 with creatinine 1.9 on daily torsemide and with worsening abdominal fullness. concern here for marked liver failure > anemia and low platelets, cirrhotic morphology and evidence of portal HTN, hyponatremia > potentially affecting renal function. but also with bacteremia ESBL from urinary source w/o evidence of obstruction. His SBP are running generally in 90-100s, lower than early July when they were more 110- 120s. he had a dose of lasix in ER and #s improved slightly. started by hospitalist on albumin had one dose of cipro then changed to ertapenem with plan per infectious diseases for a 10-day course of ertapenem Baseline creatinine best we can tell 1.2. peak creat 1.9 this admission in the setting of ESBL bacteremia. MARKO is guaranteed in such setting in such vulnerable patient. Creat now improving and close to baseline he does have Ascites, LE edema and Pulm congestion. he does continue to need diuretics. -stopped lasix; resumed OP torsemide today >> though on reexam I think he is still too overloaded and will resume lasix -lowered to bid K supplementation -continue midodrine -continue 1.8L FR, low Na diet -continue strict I/O -daily bmp -daily standing weight at home NEPHRO D/C RECS (preliminaary) -d/c on above midodrine, torsemide, K doses -d/c on above FR, low sodium diet, standing weights -needs hospital d/[place] appt [place] any provider in 2 wks w/ BMP, UACM, ACR to be ordered by nephro RN; he should bring home bp cuff in for us to check it if he is checking bp at home; he should bring home BP and home weight logs to appt above plan of care and its revision reviewed w/ dr hdez 2 times today and she is in agreement. Admission and Anticipated Discharge Date Admission Date: September 17, 2023 Subjective 4L negative on the day yesterday; no complaints of orthostatic sx; no sob, no n/v Review of Systems 2 Review of Systems: All systems reviewed & are unremarkable except as noted in Subjective Physical Exam 2 Constitutional: well developed, well nourished and cooperative; no acute distress (Lying flat in bed on room air) Eyes: EOM intact bilaterally ENMT: Ears: + hearing impairment; no external ear abnormality Nose: no external nose abnormality Mouth: + dry oral mucous membranes Neck: no nuchal rigidity Respiratory: normal respiratory effort Auscultation: + diminished lung sounds Cardiovascular: Rate/Rhythm: + irregularly irregular Extremities: + edema (2-3+ dependent) Gastrointestinal (Abdomen): Inspection/Auscultation: + abdomen distended and normal bowel sounds Percussion/Palpation: abdomen soft and + dullness to percussion; abdomen nontender Musculoskeletal: Extremities: strength 5/5 throughout Skin: no rashes, warm and dry Psychiatric: Orientation: alert, oriented to person and oriented to place A ffect: euthymic affect and + anxious affect Results & Data Vital Signs (Past 12 Hours) Vital Signs Temp Pulse Pulse Resp BP Pulse Ox O2 Del Method 09/23/23 03:21 36.4 C L 71 18 113/63 97 Room Air 09/22/23 23:54 72 09/22/23 23:24 36.5 C 80 18 109/67 95 Room Air Laboratory Results 09/23/23 05:41 09/23/23 05:41
[2023-09-23] MEDS: POTASSIUM CHLORIDE CRTAB 20 MEQ TABCR PO SCH (08:54)
[2023-09-23] MEDS: TORSEMIDE 20 MG TAB PO SCH (09:31)
--- NOTE | 2023-09-23 14:49 | Hospitalist Progress Note ---
Date of Service September 23, 2023 Assessment & Plan (1) Acute on chronic heart failure with preserved ejection fraction (HFpEF): Plan: Bacteremia UTI Blood cultx - positive for ESBL E. coli Urine cultx - posi. for Gram negat. bacili - ESBL E. coli ID consulted and discussed with, patient will need 10 days of IV ertapenem total, end date 09/27/2023. rx given to CM. Plan to go home on IV abx. Patient is 78 yo M with PMH chronic HFpEF, Chronic atrial fibrillation status post Watchman procedure, not on chronic anticoagulation, tachybradycardia syndrome s/p pacemaker, liver cirrhosis, CAD, HTN, prediabetes presented to ER with c/o increased swelling and weight gain x 2 weeks. Taking torsemide 20mg daily and recently intermittently taking additional 10mg torsemide in afternoons without relief. In ER afebrile, vital stable. BNP: 233 CXR: Cardiomegaly with pulmonary vascular congestion. No change in a small left pleural effusion. In ER given 40 mg Lasix IV Monitor I's and O's, daily weight, low-sodium diet, 1800 mL fluid restriction Hold home torsemide Monitor a.m. labs and assess volume status for further diuretic dosing CBC, BMP in a.m. 07/28/2023 echo: EF: 55%, left atrium severely dilated, right atrium moderately dilated, moderate aortic valve sclerosis without significant stenosis, mild tricuspid regurgitation, pulmonary artery systolic pressure 41 mmHg, moderate to large size left pleural effusion Cardiology consulted - Continue antibiotics and trend blood cultures; at this juncture i would not recommend YUMIKO-but if blood cultures continue to be positive we might end up needing to given his pacemaker. (2) UTI (urinary tract infection): Plan: Past week symptoms of dysuria, urinary urgency with dribbling and reported urinary retention UA: 3+ leuk esterase,> 30 WBC, 4+ bacteria Urine culture posit. fro gram negat. bacili - ESBL E. coli In ER given Cipro IV Cont. ertapenem, as above Will need further urology follow-up regarding urinary retention (3) Acute kidney injury superimposed on CKD: Plan: MARKO on likely CKD III Cr: 1.9. Was 1.3 on 08/23/2023, 1.4 on 08/13/2023 and 1.2 on 07/28/2023 Monitor renal functions Will try to avoid nephrotoxic agents when possible Nephrology consulted - cont. albumin, iv lasix and midodrine. US abdomen repeated - no significant ascites. Cr improved (4) Elevated troponin: Plan: Denies chest pain, shortness of breath Initial troponin 37.9 Suspect demand ischemia secondary to CHF Trended troponin checked EKG, seen by cardiology, as above (5) Hyponatremia: Plan: Na: 129 on admission Urine sodium, urine osmolality, serum osmolality pending Monitor BMP Nephrology consulted, as above (6) Chronic atrial fibrillation: Plan: Chronic atrial fibrillation s/p Watchman procedure. Not on anticoagulation Current rate controlled Continue carvedilol - reduced dose for low BP (7) Tachy-jessi syndrome: Plan: S/P pacemaker Known short battery life remaining on recent pacemaker interrogations Pacemaker interrogation Seen by cardiology (8) CAD (coronary artery disease): Plan: CAD with recommended medical management Continue aspirin, carvedilol (9) HTN (hypertension): Plan: Continue carvedilol with holding parameters Lisinopril was discontinued by cardiology secondary to soft BPs (10) Pancytopenia: (11) Liver cirrhosis: Plan: Monitor CBC, CMP Recently following with Dr Carpio and undergoing further workup DVT Prophylaxi - SCDs Full Code as per discussion with pt Follows with Dr Jb Romero in [place], [place] for routine care Admission and Anticipated Discharge Date Admission Date: September 17, 2023 Subjective Pt seen in follow up of UTI, gram negat. bacteremia, MARKO Patient is currently laying in bed, in no acute distress. Denies chest pain shortness of breath, denies abdominal pain, however endorses abdominal girth increase, and LE edema - which is now improved. continued on albumin, midodrine and lasix - discussed with nephrology. Per car diology may need YUMIKO if bacteremia persistent. Cr improved ID consulted and discussed with - for ESBL E.coli bacteremia - will need IV ertapenem for 10 days - Rx given to CM (end date 09/27/2023) Pt's at the bedside and updated yesterday. Discussed w/ nephrology - cont. current regimen for today. Review of Systems Review of Systems: All systems reviewed & are unremarkable except as noted in Subjective Physical Exam Physical Exam: General: WDWN M in NAD Head: normocephalic, atraumatic Eyes: PERRL, EOM's intact, conjunctiva non-injected, anicteric ENT: hard of hearing, normal inspection external ears, nose, mucous membranes moist Neck: supple Lungs: clear, no respiratory distress, no wheezing/rhonchi/rales CV: Irregularly irregular, 1-2+pretibial edema - improved Abd: Protuberant, soft, normal BS, non-tender to palpation Ext: no erythema, moves extremities Neuro: A&O x 3, no focal deficits noted, normal affect, speech fluent, moves extremities Skin: warm, dry Results & Data Results & Data Vital Signs (Past 12 Hours) Vital Signs Temp Pulse Resp BP BP Pulse Ox O2 Del Method 09/23/23 11:50 36.5 C 86 18 121/69 98 Room Air 09/23/23 08:02 36.3 C L 74 17 118/68 98 Room Air 09/23/23 03:21 36.4 C L 71 18 113/63 97 Room Air Laboratory Results 09/23/23 Range/Units 05:41 WBC 6.15 (4.8-10.8) K/ul RBC 4.05 L (4.70-6.10) M/uL Hgb 11.8 L (14.0-18.0) g/dl Hct 34.8 L (42.0-52.0) % MCV 85.9 (80.0-100.0) fL MCH 29.1 (25.0-34.0) pg MCHC 33.9 (32.0-36.0) g/dL RDW Std Deviation 49.7 H (36.4-46.3) fL RDW Coeff of Ervin 15.9 H (11.5-14.5) % Plt Count 201 (130-400) K/uL MPV 11.0 (9.4-12.4) fL Sodium 139 (136-145) mmol/L Potassium 4.7 (3.5-5.1) mmol/L Chloride 101 (98-107) mmol/L Carbon Dioxide 31 (21-32) mmol/L Anion Gap 7 (3-11) BUN 42 H (6-23) mg/dl Creatinine 1.32 (0.6-1.4) mg/dl Est Cr Clr Drug Dosing 43.7 ml/min Est GFR ( Amer) 58.6 ml/min Est GFR (Non-Af Amer) 50.6 ml/min BUN/Creatinine Ratio 31.8 H (10-20) Glucose 95 (70-99(Fasting)) mg/dl Calcium 9.3 (8.6-10.3) mg/dl Phosphorus 3.5 (2.5-4.9) mg/dl Magnesium 2.2 (1.7-2.4) mg/dl Medications Administered Current Inpatient Medications Acetaminophen (Acetaminophen 325 Mg Tab) 650 mg PO Q4H PRN PRN Reason: Pain or Fever Stop: 10/17/23 23:19 Aspirin (Aspirin 81 Mg Ectab) 81 mg PO QAM [facility] Stop: 10/18/23 08:59 Last Admin: 09/23/23 08:55 Dose: 81 mg Carvedilol (Carvedilol 6.25 Mg Tab) 6.25 mg PO BID [facility] Stop: 10/19/23 08:59 Last Admin: 09/23/23 08:55 Dose: 6.25 mg Ertapenem 1,000 mg/ Syringe 10 mls @ 2 mls/min IV Q24H [facility] Stop: 09/28/23 06:59 Last Admin: 09/23/23 05:54 Dose: 2 mls/min Midodrine (Midodrine Hcl 2.5 Mg Tab) 5 mg PO TID@0800,1200,1700 [facility] Stop: 10/20/23 16:59 Last Admin: 09/23/23 13:42 Dose: 5 mg Polyethylene Glycol (Polyethylene (Miralax) 17 Gm Pack) 17 gm PO DAILY PRN PRN Reason: Constipation Stop: 10/17/23 23:19 Potassium Chloride (Potassium Chloride Crtab 20 Meq Tabcr) 20 meq PO BID [facility] Stop: 10/23/23 08:59 Last Admin: 09/23/23 08:54 Dose: 20 meq Torsemide (Torsemide 20 Mg Tab) 20 mg PO QAM [facility] Stop: 10/23/23 08:59 Last Admin: 09/23/23 09:31 Dose: 20 mg (2) UTI (urinary tract infection) Hematuria presence: without hematuria Urinary tract infection type: site unspecified Qualified Code(s): N39.0 - Urinary tract infection, site not specified (9) HTN (hypertension) Hypertension type: primary hypertension Qualified Code(s): I10 - Essential (primary) hypertension
[2023-09-23] MEDS: FUROSEMIDE INJ 20 MG/2 ML VIAL IV SCH (17:58)
--- NOTE | 2023-09-23 21:29 | Communication Note ---
Date of Service: September 23, 2023 SBP noted to be 90s as per RN. Patient asymptomatic. Serum creatinine 1.66 from 1.3 in a.m. Ap Hypotension ARF ARF on CKD Possible overdiuresis IV albumin Hold Lasix for now
[2023-09-23 22:14] LABS: BUN Creatinine Ratio 25.3 (10-20); Calcium 9.6 mg/dl (8.6-10.3); Creatinine Clr Calc Pharmacy 34.7 ml/min; Est GFR (African American) 44.4 ml/min; Est GFR (Non-African American) 38.3 ml/min; Potassium 4.6 mmol/L (3.5-5.1)
[2023-09-23] MEDS: ALBUMIN 25% 25 GM/100 ML VIAL IV ONE (22:55)
[2023-09-24 06:19] LABS: Hematocrit (blood only) 35.1 % (42.0-52.0); Mean Corpuscular Hemoglobin 29.1 pg (25.0-34.0); Mean Corpuscular Hgb Conc 34.2 g/dL (32.0-36.0); Mean Corpuscular Volume 85.2 fL (80.0-100.0); Mean Platelet Volume 10.5 fL (9.4-12.4); Platelet Count 230 K/uL (130-400); RDW Coefficient of Variation 15.9 % (11.5-14.5); RDW Standard Deviation 48.9 fL (36.4-46.3); Red Blood Count 4.12 M/uL (4.70-6.10); White Blood Count 6.68 K/ul (4.8-10.8)
[2023-09-24 06:34] LABS: BUN Creatinine Ratio 28.2 (10-20); Calcium 9.7 mg/dl (8.6-10.3); Creatinine Clr Calc Pharmacy 38.6 ml/min; Est GFR (African American) 50.6 ml/min; Est GFR (Non-African American) 43.7 ml/min; Magnesium 2.2 mg/dl (1.7-2.4); Phosphorus 3.9 mg/dl (2.5-4.9); Potassium 4.8 mmol/L (3.5-5.1)
--- NOTE | 2023-09-24 12:51 | Nephrology Progress Note ---
Date of Service September 24, 2023 Assessment & Plan (1) Acute kidney injury superimposed on CKD: Plan: baseline creatinine best we can tell 1.2. presented 09/16 with creatinine 1.9 on daily torsemide and with worsening abdominal fullness. concern here for marked liver failure > anemia and low platelets, cirrhotic morphology and evidence of portal HTN, hyponatremia > potentially affecting renal function. but also with bacteremia ESBL from urinary source w/o evidence of obstruction. His SBP are running generally in 90-100s, lower than early July when they were more 110- 120s. he had a dose of lasix in ER and #s improved slightly. started by hospitalist on albumin had one dose of cipro then changed to ertapenem with plan per infectious diseases for a 10-day course of ertapenem Baseline creatinine best we can tell 1.2. peak creat 1.9 this admission in the setting of ESBL bacteremia. MARKO is guaranteed in such setting in such vulnerable patient. Creat now improving and close to baseline he does have Ascites, LE edema and Pulm congestion. he does continue to need diuretics. -with worsening creatinine will not resume IV diuretics; instead focus on best OP diuretic dose > trial of 30 mg bid torsemide -continue bid K supplementation -continue midodrine -continue 1.8L FR, low Na diet -continue strict I/O -daily bmp -daily standing weight at home -for possible d/c in AM NEPHRO D/C RECS -pls review best d/c dose of midodrine, torsemide, K doses -d/c on above FR, low sodium diet, standing weights -needs hospital d/[place] appt [place] any provider in 2 wks w/ BMP, UACM, ACR to be ordered by nephro RN; he should bring home bp cuff in for us to check it if he is checking bp at home; he should bring home BP and home weight logs to appt Admission and Anticipated Discharge Date Admission Date: September 17, 2023 Subjective hypotensive episode asymptomatic last evening w/ creatinine bump and lasix held. pt is w/o complaints > edema visibly improving; he's getting frustrated at staying so long inpt; no sob, no lightheadedness. no sob; feels hsi abdominal full ness has improved Review of Systems 2 Review of Systems: All systems reviewed & are unremarkable except as noted in Subjective Physical Exam 2 Constitutional: well developed, well nourished and cooperative; no acute distress (Lying flat in bed on room air) Eyes: EOM intact bilaterally ENMT: Ears: + hearing impairment; no external ear abnormality Nose: no external nose abnormality Mouth: + dry oral mucous membranes Neck: no nuchal rigidity Respiratory: normal respiratory effort Auscultation: + diminished lung sounds Cardiovascular: Rate/Rhythm: + irregularly irregular Extremities: + edema (2+ dependent) Gastrointestinal (Abdomen): Inspection/Auscultation: + abdomen distended and normal bowel sounds Percussion/Palpation: abdomen soft and + dullness to percussion; abdomen nontender Musculoskeletal: Extremities: strength 5/5 throughout Skin: no rashes, warm and dry Psychiatric: Orientation: alert, oriented to person and oriented to place A ffect: euthymic affect and + anxious affect Results & Data Vital Signs (Past 12 Hours) Vital Signs Temp Pulse Pulse Resp BP Pulse Ox O2 Del Method 09/24/23 11:12 36.5 C 80 16 117/76 97 Room Air 09/24/23 08:00 70 09/24/23 07:43 36.5 C 80 16 99/63 L 97 Room Air 09/24/23 03:12 36.5 C 75 18 113/67 97 Room Air Laboratory Results 09/24/23 05:42 09/24/23 05:42
[2023-09-24] MEDS: TORSEMIDE 10 MG TAB PO SCH (14:21)
--- NOTE | 2023-09-24 15:28 | Hospitalist Progress Note ---
Date of Service September 24, 2023 Assessment & Plan (1) Complicated UTI (urinary tract infection): Plan 78-year-old male with PMH of chronic HFpEF, chronic A-fib status post Watchman procedure, not on chronic anticoagulation, tachybradycardia syndrome status post pacemaker, liver cirrhosis, CAD, HTN, prediabetes presented with complaint of increased swelling and weight gain for 2 weeks UNATTENDED [employer]. Patient was taking torsemide 20 mg daily and was recently intermittently taking 80 send 10 mg torsemide in the afternoons without relief. He is being managed for the following: Complicated UTI -ESBL E. coli ESBL bacteremia 09/16 urine culture positive for ESBL E. coli, 09/16 blood culture positive for ESBL E. coli. Repeat blood culture from 09/17 negative. ID had evaluated, patient to complete 10 days of IV ertapenem therapy, end date 09/27/2023. Acute on chronic heart failure with preserved ejection fraction: Acute kidney injury over CKD stage III: Patient came in with BLE swelling and weight gain for 2 weeks UNATTENDED [employer]. Admitting CXR with pulmonary vascular congestion. 07/28/2023 echo with EF of 55%, left atrium is severely dilated. Patient is being diuresed, renal function with intermittent peaks. Nephrology managing diuresis, discussed with nephrology, plan for torsemide 30 mg twice daily. Patient on midodrine. Continue with KCl supplementation. Monitor I's and O's, continue telemetry monitoring. Fluid restriction 1800 mL, low-sodium diet. Labs in AM. Patient currently on room air, denies shortness of breath or chest pain. Will need further urology follow-up regarding urinary retention. Follow-up with nephrology upon discharge. Follow-up with cardiology upon discharge. Elevated troponin: Denies chest pain, likely demand ischemia secondary to CHF. Troponin flat trend. Cardiology evaluated. Hyponatremia: Sodium of 129 on admission, now resolved. Chronic atrial fibrillation: Chronic A-fib s/p Watchman procedure. Not on anticoagulation. Currently rate controlled. Continue Coreg at a reduced dose due to low BP. Other chronic medical conditions: Continue with/resume home meds as and when able. Tachybradycardia syndrome: Status post pacemaker, known short battery life remaining on recent pacemaker interrogation. Follow-up with cardiology on discharge. CAD: Continue aspirin and carvedilol. HTN: Continue carvedilol with holding parameter. Lisinopril discontinued secondary to soft BP. Pancytopenia iso liver cirrhosis: Follows Dr. Carpio and undergoing further workup. DVT prophylaxis: SCD Full code Admission and Anticipated Discharge Date Admission Date: September 17, 2023 Subjective Patient was seen and examined at bedside. Patient was lying in bed, on room air, NAD, resting comfortably. Overnight patient had hypotensive episode with creatinine bump, Lasix was held. Patient reports eating okay and moving bowels okay, denies dizziness or chest pain. Physical Exam Physical Exam: General: WDWN M in NAD Head: normocephalic, atraumatic Eyes: PERRL, EOM's intact, conjunctiva non-injected, anicteric ENT: hard of hearing, normal inspection external ears, nose, mucous membranes moist Neck: supple Lungs: clear, no respiratory distress, no wheezing/rhonchi/rales CV: Irregularly irregular, 1-2+pretibial edema Abd: Protuberant, soft, normal BS, non-tender to palpation Ext: no erythema, moves extremities Neuro: A&O x 3, no focal deficits noted, normal affect, speech fluent, moves extremities Skin: warm, dry Results & Data Results & Data Vital Signs (Past 12 Hours) Vital Signs Temp Pulse Pulse Resp BP Pulse Ox O2 Del Method 09/24/23 11:12 36.5 C 80 16 117/76 97 Room Air 09/24/23 08:00 70 09/24/23 07:43 36.5 C 80 16 99/63 L 97 Room Air
[2023-09-25 06:27] LABS: Hemoglobin 12.6 g/dl (14.0-18.0); Mean Corpuscular Hemoglobin 28.6 pg (25.0-34.0); Mean Corpuscular Hgb Conc 32.3 g/dL (32.0-36.0); Mean Corpuscular Volume 88.4 fL (80.0-100.0); Mean Platelet Volume 10.5 fL (9.4-12.4); Platelet Count 244 K/uL (130-400); RDW Coefficient of Variation 15.5 % (11.5-14.5); RDW Standard Deviation 50.2 fL (36.4-46.3); Red Blood Count 4.41 M/uL (4.70-6.10); White Blood Count 7.28 K/ul (4.8-10.8)
[2023-09-25 06:40] LABS: BUN Creatinine Ratio 27.3 (10-20); Calcium 9.8 mg/dl (8.6-10.3); Creatinine Clr Calc Pharmacy 35.4 ml/min; Est GFR (African American) 50.2 ml/min; Est GFR (Non-African American) 43.3 ml/min; Magnesium 2.2 mg/dl (1.7-2.4); Phosphorus 4.1 mg/dl (2.5-4.9); Potassium 4.5 mmol/L (3.5-5.1)
--- NOTE | 2023-09-25 12:46 | Nephrology Progress Note ---
Date of Service September 25, 2023 Assessment & Plan Admission and Anticipated Discharge Date Admission Date: September 17, 2023 Subjective Assessment & Plan (1) Acute kidney injury superimposed on CKD: Plan: baseline creatinine best we can tell 1.2. presented 09/16 with creatinine 1.9 on daily torsemide and with worsening abdominal fullness. concern here for marked liver failure > anemia and low platelets, cirrhotic morphology and evidence of portal HTN, hyponatremia > potentially affecting renal function. but also with bacteremia ESBL from urinary source w/o evidence of obstruction. His SBP are running generally in 90-100s, lower than early July when they were more 110- 120s. he had a dose of lasix in ER and #s improved slightly. started by hospit moncho on albumin had one dose of cipro then changed to ertapenem with plan per infectious diseases for a 10-day course of ertapenem Baseline creatinine best we can tell 1.2. peak creat 1.9 this admission in the setting of ESBL bacteremia. MARKO is guaranteed in such setting in such vulnerable patient. Creat now improving and close to baseline he does have Ascites, LE edema and Pulm congestion. he does continue to need diuretics. NEPHRO D/C RECS torsemide 20 bid kcl 20 daily. Midodrine 5 bid. needs hospital d/c appt [place] any provider in 2 wks w/ BMP, UACM, ACR to be ordered by nephro RN; he should bring home bp cuff in for us to check it if he is checking bp at home; he should bring home BP and home weight logs to appt Ask urology if possible about what to do with corral. If removed make sure to do post void residual urine before Discharge Subjective BP somewhat low. urine 3300 ml . No new issues. Review of Systems Review of Systems: All systems reviewed & are unremarkable except as noted in Subjective Physical Exam Constitutional: well developed, well nourished and cooperative; no acute distress (Lying flat in bed on room air) Eyes: EOM intact bilaterally ENMT: Ears: + hearing impairment; no external ear abnormality Nose: no external nose abnormality Mouth: + dry oral mucous membranes Neck: no nuchal rigidity Respiratory: normal respiratory effort Auscultation: + diminished lung sounds Cardiovascular: Rate/Rhythm: + irregularly irregular Extremities: + edema (1+ dependent) Gastrointestinal (Abdomen): Inspection/Auscultation: + abdomen distended and normal bowel sounds Percussion/Palpation: abdomen soft and + dullness to percussion; abdomen nontender Musculoskeletal: Extremities: strength 5/5 throughout Skin: no rashes, warm and dry Psychiatric: Orientation: alert, oriented to person and oriented to place Affect: euthymic affect and + anxious affect Results & Data Vital Signs (Past 12 Hours) Vital Signs Temp Pulse Pulse Resp BP Pulse Ox O2 Del Method 09/25/23 12:07 36.4 C L 86 18 93/64 L 95 Room Air 09/25/23 11:41 84 09/25/23 07:52 36.4 C L 84 18 93/59 L 92 Room Air 09/25/23 03:53 36.6 C 79 18 113/69 92 Room Air 09/25/23 02:47 Room Air
--- NOTE | 2023-09-25 16:43 | Hospitalist Progress Note ---
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 Patient was taking torsemide 20 mg daily and was recently intermittently taking 80 send 10 mg torsemide in the afternoons without relief. He is being managed for the following: Complicated UTI -ESBL E. coli ESBL bacteremia 09/16 urine culture positive for ESBL E. coli, 09/16 blood culture positive for ESBL E. coli. Repeat blood culture from 09/17 negative. ID had evaluated, patient to complete 10 days of IV ertapenem therapy, end date 09/27/2023. 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 Admitting CXR with pulmonary vascular congestion. 07/28/2023 echo with EF of 55%, left atrium is severely dilated. Patient is being diuresed, renal function with intermittent peaks. Nephrology managing diuresis, discussed with nephrology, plan for torsemide 30 mg twice daily. Patient on midodrine. Continue with KCl supplementation. Monitor I's and O's, continue telemetry monitoring. Fluid restriction 1800 mL, low-sodium diet. Labs in AM. Patient currently on room air, denies shortness of breath or chest pain. Will need further urology follow-up regarding urinary retention. Follow-up with nephrology upon discharge. Follow-up with cardiology upon d ischarge. Elevated troponin: Denies chest pain, likely demand ischemia secondary to CHF. Troponin flat trend. Cardiology evaluated. Hyponatremia: Sodium of 129 on admission, now resolved. Chronic atrial fibrillation: Chronic A-fib s/p Watchman procedure. Not on anticoagulation. Currently rate controlled. Continue Coreg at a reduced dose due to low BP. Other chronic medical conditions: Continue with/resume home meds as and when able. Tachybradycardia syndrome: Status post pacemaker, known short battery life remaining on recent pacemaker interrogation. Follow-up with cardiology on discharge. CAD: Continue aspirin and carvedilol. HTN: Continue carvedilol with holding parameter. Lisinopril discontinued secondary to soft BP. Pancytopenia iso liver cirrhosis: Follows Dr. Carpio and undergoing further workup. DVT prophylaxis: SCD Full code Admission and Anticipated Discharge Date Admission Date: September 17, 2023 Subjective Patient was seen and examined at bedside. Patient was lying in bed, on room air, NAD, resting comfortably. Patient reports eating okay and moving bowels okay, denies dizziness or chest pain. Pt aware HH can't have SOC on Wednesday, CM also discussed iwth the patient about the issues as pt needs iv ertapenem on DC. Hence, per CM pt and his decided they will stay until Wednesday to complete the course. I did call pt's over the phone to give her general update and left voicemail to call us back and ask for Dr. ryan. Physical Exam Physical Exam: General: WDWN M in NAD Head: normocephalic, atraumatic Eyes: PERRL, EOM's intact, conjunctiva non-injected, anicteric ENT: hard of hearing, normal inspection external ears, nose, mucous membranes moist Neck: supple Lungs: clear, no respiratory distress, no wheezing/rhonchi/rales CV: Irregularly irregular, 1-2+pretibial edema Abd: Protuberant, soft, normal BS, non-tender to palpation Ext: no erythema, moves extremities Neuro: A&O x 3, no focal deficits noted, normal affect, speech fluent, moves extremities Skin: warm, dry Results & Data Results & Data Vital Signs (Past 12 Hours) Vital Signs Temp Pulse Pulse Resp BP Pulse Ox O2 Del Method 09/25/23 12:07 36.4 C L 86 18 93/64 L 95 Room Air 09/25/23 11:41 84 09/25/23 07:52 36.4 C L 84 18 93/59 L 92 Room Air
[2023-09-25] MEDS: MIDODRINE HCL 2.5 MG TAB PO SCH (18:11)
[2023-09-25] MEDS: TORSEMIDE 20 MG TAB PO SCH (18:12)
[2023-09-26 06:24] LABS: BUN Creatinine Ratio 32.1 (10-20); Calcium 9.8 mg/dl (8.6-10.3); Est GFR (African American) 54.6 ml/min; Est GFR (Non-African American) 47.1 ml/min; Potassium 3.9 mmol/L (3.5-5.1)
[2023-09-26] MEDS: POTASSIUM CHLORIDE CRTAB 20 MEQ TABCR PO SCH (09:29)
--- NOTE | 2023-09-26 15:09 | Hospitalist Progress Note ---
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 Patient was taking torsemide 20 mg daily and was recently intermittently taking 80 send 10 mg torsemide in the afternoons without relief. He is being managed for the following: Complicated UTI -ESBL E. coli ESBL bacteremia / urine culture positive for ESBL E. coli, 09/16 blood culture positive for ESBL E. coli. Repeat blood culture from 09/17 negative. ID had evaluated, patient to complete 10 days of IV ertapenem therapy, end date 09/27/2023. 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 Admitting CXR with pulmonary vascular congestion. 07/28/2023 echo with EF of 55%, left atrium is severely dilated. Patient is being diuresed, renal function with intermittent peaks. Nephrology managing diuresis, continue diuresis/midodrine/KCl supplementation per their recommendation. Monitor I's and O's, continue telemetry monitoring. Fluid restriction 1800 mL, low-sodium diet. Labs in AM. Patient currently on room air, denies shortness of breath or chest pain. Will need further urology follow-up regarding urinary retention. Follow-up with nephrology upon discharge. Follow-up with cardiology upon d ischarge. Elevated troponin: Denies chest pain, likely demand ischemia secondary to CHF. Troponin flat trend. Cardiology evaluated. Hyponatremia: Sodium of 129 on admission, now resolved. Chronic atrial fibrillation: Chronic A-fib s/p Watchman procedure. Not on anticoagulation. Currently rate controlled. Continue Coreg at a reduced dose due to low BP. Other chronic medical conditions: Continue with/resume home meds as and when able. Tachybradycardia syndrome: Status post pacemaker, known short battery life remaining on recent pacemaker interrogation. Follow-up with cardiology on discharge. CAD: Continue aspirin and carvedilol. HTN: Continue carvedilol with holding parameter. Lisinopril discontinued secondary to soft BP. Pancytopenia iso liver cirrhosis: Follows Dr. Carpio and undergoing further workup. DVT prophylaxis: SCD Full code Disposition: Likely DC tomorrow after final ertapenem dose. Pt's was given phone call, updated on plan of care. she voiced understanding and was agreeable to plan of care. Admission and Anticipated Discharge Date Admission Date: September 17, 2023 Subjective Patient was seen and examined at bedside. Patient was lying in bed, on room air, NAD, resting comfortably. Patient reports eating okay and moving bowels okay, denies dizziness or chest pain. RN communicated for voiding trail today. Will follow. Physical Exam Physical Exam: General: WDWN M in NAD Head: normocephalic, atraumatic Eyes: PERRL, EOM's intact, conjunctiva non-injected, anicteric ENT: hard of hearing, normal inspection external ears, nose, mucous membranes moist Neck: supple Lungs: clear, no respiratory distress, no wheezing/rhonchi/rales CV: Irregularly irregular, 1+pretibial edema Abd: Protuberant, soft, normal BS, non-tender to palpation Ext: no erythema, moves extremities Neuro: A&O x 3, no focal deficits noted, normal affect, speech fluent, moves extremities Skin: warm, dry Results & Data Results & Data Vital Signs (Past 12 Hours) Vital Signs Temp Pulse Pulse Resp BP Pulse Ox O2 Del Method 09/26/23 11:45 36.6 C 85 18 92/60 L 92 Room Air 09/26/23 08:00 85 09/26/23 07:51 36.7 C 82 18 111/64 96 Room Air 09/26/23 03:24 36.4 C L 83 18 96/59 L 96 Room Air
--- NOTE | 2023-09-27 13:34 | Discharge Summary ---
Date of Service September 27, 2023 Admission HPI Per Admitting Provider Patient is 78-year-old male with PMH chronic HFpEF, Chronic atrial fibrillation status post Watchman procedure, not on chronic anticoagulation, tachybradycardia syndrome s/p pacemaker, liver cirrhosis, CAD, HTN, prediabetes presented to ER with c/o increased swelling. History obtained from patient, patient's , inpatient and outpatient chart review. Patient with recent hospitalization 07/28/2023-08/03/2023 for acute CHF with preserved EF in which he received IV diuresis and was discharged on torsemide 20 mg daily. He also had thoracentesis. He had urology follow-up on 08/04/2023 for postvoid residual and had Corral catheter placed which was removed on 08/16/2023. Patient states the past week he has been having urinary incontinence with dribbling urine. The past week several days he has noticed very dark-colored urine and feels like he is not completely emptying his bladder. Also complains of dysuria. Patient reports the past 2 weeks has noticed increased lower extremity edema, increased abdominal girth and weight gain. Patient states upon returning home from hospital he weighed 169 pounds on his scale. Patient states yesterday had a weight of 177 pounds. States that he can't button his pants anymore. Abdomen feels "full" but denies abdominal pain. He reports he has been having decreased appetite and decreased intake over the past week. After a couple of bites he feels that he is full and not able to eat more. Reports has been following 64 ounce fluid restriction and trying to follow sodium restrictions. Patient states he feels fatigued with ambulation over the past 2 weeks. States not really feeling short of breath just that he "cannot do much". Denies chest pain. Denies fever/chills, diaphoresis, N/V/D/C, MANNING, dizziness, syncope, vision changes, neck pain, orthopnea, palpitations, cough, sore throat, rhinorrhea, paresthesias, rashes, noted hematuria. Admission Exam Per Admitting Provider General: no distress, WDWN Head: normocephalic, atraumatic Eyes: PERRL, EOM's intact, conjunctiva non-injected, anicteric ENT: hard of hearing, normal inspection external ears, nose, mucous membranes moist Neck: supple, trachea midline Lungs: clear, no respiratory distress, no wheezing/rhonchi/rales CV: Irregularly irregular, 2+pretibial edema Abd: Protuberant, soft, normal BS, non-tender to palpation Ext: no cyanosis, no erythema, no calf tenderness Neuro: A&O x 3, no focal deficits noted, normal affect Skin: warm, dry Principal Diagnosis ESBL UTI and bacteremia MARKO Discharge Exam General: WDWN M in NAD Head: normocephalic, atraumatic Eyes: PERRL, EOM's intact, conjunctiva non-injected, anicteric ENT: hard of hearing, normal inspection external ears, nose, mucous membranes moist Neck: supple Lungs: clear, no respiratory distress, no wheezing/rhonchi/rales CV: Irregularly irregular, trace pretibial edema Abd: Protuberant, soft, normal BS, non-tender to palpation Ext: no erythema, moves extremities Neuro: A&O x 3, no focal deficits noted, normal affect, speech fluent, moves extremities Skin: warm, dry Discharge Data Allergies Allergy/AdvReac Type Severity Reaction Status Date / Time Penicillins AdvReac Unknown Verified 07/28/23 10:46 Consultations 09/17/23 17:08 ED Decision to Admit Stat 09/17/23 23:20 Consult Cardiology Routine Consult Nephrology Routine 09/20/23 08:29 Consult Infectious Diseases Routine Ordered Studies 09/17/23 16:05 CT abd pelvis wo con Stat 09/20/23 14:52 US abdomen ltd ascites Routine Hospital Course (1) Complicated UTI (urinary tract infection): Plan 78-year-old male with PMH of chronic HFpEF, chronic A-fib status post Watchman procedure, not on chronic anticoagulation, tachybradycardia syndrome status post pacemaker, liver cirrhosis, CAD, HTN, prediabetes presented with complaint of increased swelling and 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 Patient was taking torsemide 20 mg daily and was recently intermittently taking 80 send 10 mg torsemide in the afternoons without relief. He was managed for the following: Complicated UTI -ESBL E. coli ESBL bacteremia 3/ urine culture positive for ESBL E. coli, 3/ blood culture positive for ESBL E. coli. Repeat blood culture from 09/17 negative. ID had evaluated, patient to complete 10 days of IV ertapenem therapy, end date 09/27/2023. Pt completed course of ATB. 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 Admitting CXR with pulmonary vascular congestion. 07/28/2023 echo with EF of 55%, left atrium is severely dilated. Patient is being diuresed, renal function with intermittent peaks. Nephrology managing diuresis, continue diuresis/midodrine/KCl supplementation per their recommendation. Fluid restriction 1800 mL, low-sodium diet. Labs in AM. Patient currently on room air, denies shortness of breath or chest pain. Will need further urology follow-up regarding urinary retention. Follow-up with nephrology upon discharge. Follow-up with cardiology upon dis charge. Elevated troponin: Denies chest pain, likely demand ischemia secondary to CHF. Troponin flat trend. Cardiology evaluated. Hyponatremia: Sodium of 129 on admission, now resolved. Chronic atrial fibrillation: Chronic A-fib s/p Watchman procedure. Not on anticoagulation. Currently rate controlled. Continue Coreg at a reduced dose due to low BP. Other chronic medical conditions: Continue with/resume home meds as and when able. Tachybradycardia syndrome: Status post pacemaker, known short battery life remaining on recent pacemaker interrogation. Follow-up with cardiology on discharge. CAD: Continue aspirin and carvedilol. HTN: Continue carvedilol with holding parameter. Lisinopril discontinued secondary to soft BP. Pancytopenia iso liver cirrhosis: Follows Dr. Carpio and undergoing further workup. DVT prophylaxis: SCD Full code Patient is being discharged to home with following instruction at the point of discharge: Follow-up with your primary care physician within a week time and likely you will need labs CBC/CMP/magnesium/phosphorus. You completed course of antibiotic for ESBL bacteremia and ESBL UTI. You underwent medication optimization for your volume overload in the setting of acute kidney injury and chronic kidney injury. You were evaluated by nephrology. Your Coreg has been decreased to 6.25 mg twice a day. You will be discharged on diuresis and potassium supplement as well. Follow-up with nephrology in 1 to 2 weeks time upon discharge. Follow-up with your cardiology in 1 to 2 months time upon discharge. Maintain follow-up with urology regarding your urinary retention. Take your medications as prescribed. Please make sure that you are able to get your medications today by calling your pharmacy before you leave the hospital so that your treatment continuity is not broken. Home Health Attestation I certify that this patient is under my care and that I, or a physicians as sistant working with me, had a face to-face encounter that meets the home health [id number] encounter requirements with this patient. The encounter with the patient was in whole, or in part, for the following medical condition, which is the primary reason for home health care (list medical condition): I certify that, based on my findings, the following services are medically necessary home health services: My clinical findings support the need for the above services because: Further, I certify that my clinical findings support that this patient is homebound (i.e. absences from home require considerable and taxing effort and are for medical reasons or rastafarian services or infrequently or of short duration when for other reasons) because: Certification for Home Health Services: Based on the above findings, I certify that this patient is confined to the home and needs intermittent detention care, physical therapy and/or speech therapy or continues to need occupational therapy. The patient is under my care, and I have initiated the establishment of the plan of care. This patient will be followed by a physician who will periodically review the plan of care. Total Time Total Time Spent Total Time Spent (In Minutes): 45 Discharge Plan Discharge Items Patient Disposition: Home - Home Health Services Reason For Visit: CHF Discharge Diagnosis: ESBL UTI and bacteremia MARKO Activity: Per Instructions section Non-emergency contact: Primary Care Provider, Specialist and Director Business Integration Call non-emergency contact if: you have any medication questions and your symptoms worsen Follow-up/Referrals: Radha Vallecillo MD, PhD [Physician] - (The Nephrology office will contact you for a follow up appointment.) Jb Romero DO [Primary Care Provider] - 10/01/23 2:30 pm Diet: Low Sodium (2gm) Addtl Attending Provider Instructions: Follow-up with your primary care physician within a week time and likely you will need labs CBC/CMP/magnesium/phosphorus. You completed course of antibiotic for ESBL bacteremia and ESBL UTI. You underwent medication optimization for your volume overload in the setting of acute kidney injury and chronic kidney injury. You were evaluated by nephrology. Your Coreg has been decreased to 6.25 mg twice a day. You will be discharged on diuresis and potassium supplement as well. Follow-up with nephrology in 1 to 2 weeks time upon discharge. Follow-up with your cardiology in 1 to 2 months time upon discharge. Maintain follow-up with urology regarding your urinary retention. Take your medications as prescribed. Please make sure that you are able to get your medications today by calling your pharmacy before you leave the hospital so that your treatment continuity is not broken. Pending Studies at Discharge: No Stand-Alone Forms: [facility], Smoking Cessation Medications and DC Order Prescriptions: New carvedilol 6.25 mg Tablet 6.25 mg PO BID Qty: 60 0RF potassium chloride 20 mEq Tablet,Er Particles/Crystals 20 meq PO DAILY Qty: 30 0RF torsemide 20 mg Tablet 20 mg PO [id number] Qty: 60 0RF midodrine 5 mg tablet 5 mg PO BID Qty: 60 0RF Rx Instructions: do not give last dose of day after 6PM or within 4 hrs of bedtime Continued aspirin 81 mg Tablet 81 mg PO QAM glucosamine sulfate 750 mg Tablet 750 mg PO QAM Discontinued carvedilol 12.5 mg tablet 12.5 mg PO BID torsemide 10 mg Tablet 20 mg PO QAM Qty: 30 1RF potassium chloride 10 mEq capsule, extended release 10 meq PO QAM Qty: 30 0RF Discharge Orders: Discharge Order (Routine); Ordered 09/27/23 Ordered By: Faustino Wallace Admission Data Admit Date/Time: 09/17/23 17:42 Attending Provider: Faustino Wallace Admit Provider: Preet Shannon Primary Care Provider: Jb Romero Other Providers: Preet Shannon; Sarkis Laura; Maureen Carlos; Kahlil Tomlin I.; German Ramirez II; Jenna Veliz; Carlos Brewer; El Lucas; Gladys Basilio; Kristen Aponte; Jt,Emilyx; Radha Vallecillo
--- NOTE | 2023-09-29 12:30 | Coding Query ---
CODING QUERY To promote full compliance with coding requirements relating to patient care, provider participation is requested in all cases of yardage caller uncertainty. Please assist us with the question(s) below: Coding Question(s): Please specify below, in your clinical opinion, the diagnosis most responsible for occasioning the inpatient admission: ( x ) most likely Fluid Overload. Please Specify further, in your clinical opinion, the most likely source of the Fluid Overload on admission: ( ) Acute Kidney Injury ( x ) Acute on Chronic Heart Failure with preserved ejection fraction ( ) Decompensated Liver Cirrhosis ( ) Other: Please Specify ( ) most likely Acute on Chronic Heart Failure with preserved ejection fraction ( ) most likely Acute Kidney Injury ( ) most likely UTI with E-Coli Bacteremia ( ) most likely Other: Please Specify Physician's Response(s): Thank you Juliann Moon Principal Diagnosis: "that condition established after study, to be chiefly responsible for occasioning the admission of the patient to the hospital for care." Co-Existing Principal Diagnosis: "when two or more diagnoses equally meet the criteria for principal diagnosis as determined by the circumstances of admission, diagnostic work up, and/or therapy provided, and the Alphabetic Index, Tabular List, or another coding guideline does not provide sequencing direction, any one of the diagnoses may be sequenced first." "When the physician has documented what appears to be a current diagnosis in the body of the record, but has not included the diagnosis in the final diagnostic statement, the physician should be asked whether the diagnosis should be added." (Source Coding [facility] 2 QTR90. p3-4) VIVIANE
== END 2023-09-27 14:22 | disposition home health service (06) | DRG 291 ==
LOC: ED 12:44 → SUATTDRO 17:42 → 2N 17:42